=== PATIENT | male | born 1955 | race Caucasian/White ===

== ENCOUNTER → 2019-05-01 14:12 | Outpatient (CLI) | payer OTHER, SELFPAY ==
[2019-04-11 16:11] VITALS: BMI 28.8
--- NOTE | 2019-05-01 14:16 | ECHOD_ITS ---
Reason For Study: ARRHYTHMIA Procedure This was a 2D Doppler, Color Flow transthoracic echocardiogram. Exam performed in department. Left Ventricle Normal LV size. Left ventricular systolic function is normal. Stage 1 diastolic dysfunction. No regional wall motion abnormalities noted. Right Ventricle Normal RV size. Normal systolic function. Atria Normal left atrium. Normal right atrium. Mitral Valve Normal mitral valve. Trivial mitral valve insufficiency. Tricuspid Valve Normal tricuspid valve. Mild tricuspid valve insufficiency. Pulmonary artery systolic pressure is 20 mmHg. Aortic Valve Normal aortic valve. Trisinus/trileaflet aortic valve. Pulmonic Valve Normal pulmonic valve. Great Vessels Normal aortic root. The pulmonary artery is normal size. Normal inferior vena cava. Pericardium/Pleural No pericardial effusion. MMode/2D Measurements & Calculations LVIDd: 4.9 cm IVSd: 0.88 cm Ao root diam: 3.0 cm LVIDs: 3.5 cm LVPWd: 0.91 cm RVDd: 3.2 cm FS: 28.5 % LAV(MOD-bp): 32.4 ml LVAd ap4: 25.6 cm2 SV(MOD-sp4): 38.4 ml LAV(MOD-bp) Indexed: 16.2 ml/m2 EDV(MOD-sp4): 70.3 ml LAV(MOD-sp2): 33.1 ml EDV(sp4-el): 72.3 ml LAV(MOD-sp4): 31.5 ml LVAs ap4: 15.6 cm2 ESV(MOD-sp4): 31.8 ml ESV(sp4-el): 31.3 ml EF(MOD-sp4): 54.7 % EF(sp4-el): 56.8 % SV(sp4-el): 41.1 ml LA A4 area: 13.1 cm2 LA dimension(2D): 3.6 cm RA A4 area: 12.6 cm2 Time Measurements MV dec time: 0.21 sec Doppler Measurements & Calculations MV E max yaniv: 68.4 cm/sec Lat Peak E' Yaniv: 11.1 cm/sec Med Peak E' Yaniv: 6.0 cm/sec MV A max yaniv: 76.7 cm/sec E/E' lat: 6.2 E/E' med: 11.4 MV E/A: 0.89 Ao V2 max: 123.7 cm/sec LV V1 max: 90.0 cm/sec TR max yaniv: 204.9 cm/sec Ao max P.1 mmHg LV V1 max P.2 mmHg TR max P.9 mmHg Interpretation Summary Normal LV size. Left ventricular systolic function is normal. Stage 1 diastolic dysfunction. Trivial mitral valve insufficiency. Mild tricuspid valve insufficiency. Ordering Physician: Albert Saenz Referring Physician: BATOOL ASHLEY Performed By: Kim Toribio, [place], RVT
== END ==
PROVIDERS: Family Provider Family Medicine; PCP Family Medicine; Referring Provider Internal Medicine Cardiovascular Disease; Visit Provider Internal Medicine Cardiovascular Disease
DX: I49.3 Ventricular premature depolarization (principal)
CPT/HCPCS: 93306

== ENCOUNTER 2019-09-30 19:50 | Emergency (ER) | payer OTHER, SELFPAY ==
[2019-08-09 15:21] VITALS: BMI 29.6
[2019-09-30 19:52] VITALS: BP 165/98; PULSE 79; PULSE 85; RESP 17; RESP 18; TEMP 36.7; O2SAT 97; BMI 29.9
--- NOTE | 2019-09-30 20:09 | ED.VIS.GEN ---
History of Present Illness Chief Complaint: Other, Pain/Inj Informant: Patient, Significant Other Narrative: Patient states that approximately 4 days ago he went to see his PCP and was diagnosed with bronchitis and started on azithromycin. He states that last evening he began to have a fullness in the lower part of his throat. He states that he recently saw ENT and had a scope evaluating his throat. He was told that he had some inflammation around the larynx was probably due to his acid reflux is scheduled for a swallowing study. He does not currently smoke. He states that they did not see any tumors or other pathology. He denies any fevers. He states that his throat feels like there is a large amount of mucus in the back that he needs to get up but cannot. He notes his voice is a little bit more raspy. No recent fevers. No shortness of breath. Past Medical History - Allergies and Home Meds Allergies/Adverse Reactions: Allergies doxycycline Allergy (Intermediate, Verified 09/30/19 19:51) GI upset Penicillins Allergy (Verified 09/30/19 19:51) Anaphylaxis Primary Care Physician: Rock Montes MD [Primary Care Provider] - Surgical History: no surgical history Smoking Status: Former smoker Review of Systems General: Denies: Chills, Fever, Sweats Eyes: Denies: Visual changes - bilaterally, Diplopia ENT: Reports: Sore throat. Denies: Rhinorrhea Cardiovascular: Denies: Chest pain, Palpitations Respiratory: Reports: Cough. Denies: Dyspnea, Sputum, Dyspnea on exertion Gastrointestinal: Denies: Abdominal pain, Nausea, Vomiting, Diarrhea, Melena, Hematochezia Genitourinary: Denies: Dysuria, Hematuria, Frequency Musculoskeletal: Denies: Back pain, Extremity Pain Skin: Denies: Rash, Wounds Neurological: Denies: Headache, Weakness, Numbness Psych: Denies: Depression Endocrine: Denies: Polyuria, Polydipsia Hematologic: Denies: Easy bruising, Easy bleeding, Lymphadenopathy Allergy: Denies: Uticaria, Swelling of the mouth Physical Exam Vital Signs/Narrative: Vital Signs Temp Pulse Resp BP Pulse Ox 09/30/19 19:52 98.1 F 85 17 165/98 H 97 General: Well nourished, Well developed, No Acute Distress Head: Normocephalic, Atraumatic Eyes: Perrl, EOMI ENT: Moist mucous membranes, No rhinorrhea Neck: Supple, Nontender, - - There is no stridor. No significant lymphadenopathy. No uvular swelling. No drooling.. Negative for: No lymphadenopathy Cardiovascular: Regular rate, Regular rhythm, No murmurs Respiratory: No distress, CTA bilaterally, Chest nontender Abdomen: Soft, Nontender, Nondistended, Normal bowel sounds Back: Nontender, Normal Inspection Extremities: Nontender, No edema Skin: Normal color, No rash Neurological: Alert, Oriented x3, Cranial nerves II-XII grossly intact, Normal Strength, Normal Sensation Psychological: Normal affect, Normal Mood Diagnostic/Tx/Re-eval - Medical Decision Making X-rays of the soft tissue of the neck demonstrated degenerative changes. Normal epiglottis. There is very adequate air space present. I do not see any evidence of epiglottitis, stridor, or significant allergic reaction. The patient will be discharged home. The patient will be given a dose of Kenalog. Encourage him to humidify the room he is in. Return if worsening or concerns. ED Disposition - Plan for ED Patient: Disposition: Home or Assisted Living Diagnosis: Laryngitis Instructions: Laryngitis Referrals: Rock Montes MD [Primary Care Provider] -
--- NOTE | 2019-09-30 20:10 | RAD_ITS ---
STUDY: X-RAY - SOFT TISSUE NECK REASON FOR EXAM: Male, 63 years old. Throat fullness. TECHNIQUE: 2 view(s) of the neck were obtained. COMPARISON: None. FINDINGS: Normal visualized nasopharynx, oropharynx, hypopharynx. Normal epiglottis. Normal visualized subglottic tracheal air column. Normal prevertebral soft tissue structures. There are degenerative changes of the cervical spine with cervical spondylosis. There are carotid calcifications within the left neck. RAD/Neck for Soft Tissue IMPRESSION: Degenerative changes. Atherosclerosis. Electronically Signed: Tiara Dupree MD at 20:32 EST Tel , Service support ,
[2019-09-30] MEDS: Triamcinolone Acetonide 40 MG/ML Vial IM (20:44)
[2019-09-30 21:13] VITALS: BP 151/78; PULSE 67; RESP 16
== END 2019-09-30 21:14 | disposition home or self-care (01) ==
PROVIDERS: Emergency Provider Emergency Medicine; Family Provider Family Medicine; PCP Family Medicine
DX: J04.0 Acute laryngitis (principal); Z88.0 Allergy status to penicillin; Z87.891 Personal history of nicotine dependence
CPT/HCPCS: 70360; 96372; 99282

== ENCOUNTER → 2020-08-19 10:18 | Outpatient (CLI) | payer OTHER, SELFPAY ==
[2020-03-11 15:50] VITALS: BMI 29.6
== END ==
PROVIDERS: PCP Family Medicine; Referring Provider Nurse Practitioner Family; Visit Provider Nurse Practitioner Family
DX: Z20.828 Contact with and (suspected) exposure to other viral communicable diseases (principal)
CPT/HCPCS: 87635; C9803; U0003

== ENCOUNTER 2020-08-23 12:44 | Inpatient (IN) | payer OTHER, SELFPAY ==
[2020-03-11 15:50] VITALS: BMI 29.6
[2020-08-23] VITALS (10 sets, daily range): BP systolic 111–142; BP diastolic 70–96; PULSE 66–114; RESP 13–23; TEMP 36.3–38.1; O2SAT 88–99; BMI 27.8; BMI 27.1; BMI 27.2
--- NOTE | 2020-08-23 13:06 | RAD_ITS ---
STUDY: X-RAY CHEST REASON FOR EXAM: Male, 64 years old. sob TECHNIQUE: AP COMPARISON: 10/07/2013 FINDINGS: EKG leads project over the chest. Lungs are underexpanded with interstitial and groundglass opacities along the periphery and the lung bases, new since the prior study. There is no demonstrated pleural abnormality. Normal size heart. Normal mediastinum and pennie. Normal visualized pulmonary arteries. Normal visualized aortic arch and descending thoracic aorta. No acute bony process. There is no demonstrated abnormality of the visualized soft tissue structures of the upper abdomen. RAD/Chest 1 View (Portable) IMPRESSION: 1. Hypoinflation with multilobar interstitial and groundglass opacities. Differential considerations include pulmonary edema, pneumonia (including typical and atypical varieties) and development of interstitial fibrotic lung disease. Electronically Signed: Prakash Addison MD (Brooks) at 13:33 EDT , Service support ,
--- NOTE | 2020-08-23 13:06 | EKG12_ITS ---
Test Reason : SOB Blood Pressure : / mmHG Vent. Rate : 081 BPM Atrial Rate : 081 BPM P-R Int : 136 ms QRS Dur : 098 ms QT Int : 396 ms P-R-T Axes : 042 -02 031 degrees QTc Int : 460 ms Normal sinus rhythm Normal ECG Confirmed by JENNIFER HERNADEZ, TOMMY ([id number]), editorial writer ZION PHILLIPS ([id number]) on 08/26/2020 11:18:07 AM Referred By: DENY/HERRERA Confirmed By:TOMMY RODRIGUEZ MD
--- NOTE | 2020-08-23 13:08 | ED.VIS.GEN ---
History of Present Illness Chief Complaint: Shortness of Breath Narrative: This patient is a 64-year-old male who presents with shortness of breath. He had a positive test for COVID-19 several days ago. He has had multiple sick contacts who have tested positive for COVID-19 at home. His symptoms initially developed about 1 week ago with diarrhea. Over the next couple of days he then developed cough and fever. He began to feel short of breath over the last couple of days. He was monitoring his oxygen at home and his oxygen levels were dropping as low as in the 70s. Patient was brought in by EMS and placed on a nonrebreather. When he was taken off of oxygen here he desaturated to 88% on room air. Patient is still having diarrhea. He denies chest pain. Denies vomiting. He denies history of underlying lung disease such as asthma or COPD but he is a former smoker. Past Medical History - Allergies and Home Meds Allergies/Adverse Reactions: Allergies doxycycline Allergy (Intermediate, Verified 08/23/20 12:53) GI upset Penicillins Allergy (Verified 08/23/20 12:53) Anaphylaxis Primary Care Physician: Rock Montes MD [Primary Care Provider] - Past Medical History: - - Hypertension, hyperlipidemia Surgical History: no surgical history Smoking Status: Former smoker Review of Systems All systems negative except as indicated General: Reports: Fever Eyes: Denies: Visual changes - bilaterally ENT: Denies: Bilateral ear pain Cardiovascular: Denies: Chest pain Respiratory: Reports: Dyspnea, Cough Gastrointestinal: Reports: Diarrhea. Denies: Nausea, Vomiting Musculoskeletal: Denies: Myalgias, Arthralgias Skin: Denies: Rash Neurological: Denies: Headache Allergy: Denies: Uticaria Physical Exam Vital Signs/Narrative: Vital Signs Temp Pulse Resp BP Pulse Ox 08/23/20 12:52 100.4 F H 96 17 136/73 H 96 08/23/20 12:48 100.4 F H 96 16 136/73 H 88 Inital Vital Signs reviewed: Yes General: Well nourished Head: Normocephalic Eyes: EOMI ENT: Moist mucous membranes Neck: Supple Cardiovascular: Regular rhythm, Tachycardia Respiratory: Diminished. Negative for: Rales, Rhonchi, Wheezing Abdomen: Soft Skin: Normal color Neurological: Alert Psychological: Normal affect Diagnostic/Tx/Re-eval Impressions Chest X-Ray 08/23/20 13:06 IMPRESSION: 1. Hypoinflation with multilobar interstitial and groundglass opacities. Differential considerations include pulmonary edema, pneumonia (including typical and atypical varieties) and development of interstitial fibrotic lung disease. Electronically Signed: Prakash Addison MD (Brooks) at 13:33 EDT , Service support , 08/23/20 13:06 Chest 1 View (Portable) [RAD] Stat Laboratory Results 08/23/20 08/23/20 08/23/20 13:07 13:07 13:07 WBC 9.7 RBC 4.34 L Hgb 13.5 Hct 40.4 MCV 93.1 MCH 31.1 MCHC 33.4 RDW Std Deviation 45.1 H RDW Coeff of Renzo 13.1 Plt Count 224 MPV 11.5 Immature Gran % (Auto) 0.400 Neut % (Auto) 83.7 H Lymph % (Auto) 8.1 L [place] % (Auto) 5.8 Eos % (Auto) 1.7 Baso % (Auto) 0.3 Absolute Neuts (auto) 8.1 H Absolute Lymphs (auto) 0.79 L Nucleated RBC % 0 Differential Comment SCANNED Sodium 135 L Potassium 3.3 L Chloride 103 Carbon Dioxide 22.0 Anion Gap 10 BUN 15 Creatinine 1.08 Estim Creat Clear Calc 69.10 Est GFR (MDRD) Af Amer 88 Est GFR (MDRD) Non-Af 73 BUN/Creatinine Ratio 13.9 Glucose 104 Lactic Acid 1.3 Calcium 8.6 Total Bilirubin 1.20 H AST 73 H ALT 67 H Alkaline Phosphatase 187 H Total Protein 7.9 Albumin 3.0 L Globulin 4.9 H Albumin/Globulin Ratio 0.6 L - Medical Decision Making Serum laboratory studies unremarkable. Chest x-ray shows diffuse bilateral interstitial and groundglass opacities. Patient was covered with IV Levaquin for possible secondary bacterial pneumonia. Patient was discussed with the hospitalist and admitted. ED Disposition - Plan for ED Patient: Disposition: Acute Care Hospital [facility] Diagnosis: COVID-19, Hypoxia Referrals: Rock Montes MD [Primary Care Provider] -
[2020-08-23 13:18] LABS: Absolute Lymphocyte Count 0.79 X10^3/uL (0.83-4.51); Absolute Neutrophil Count 8.1 X10^3/uL (2.0-7.7); Basophil# 0.03 X10^3/uL; Basophil% 0.3 % (0-1); Eosinophil# 0.17 X10^3/uL; Eosinophils% 1.7 % (0-5); Hematocrit 40.4 % (40-54); Hemoglobin 13.5 g/dL (13.0-16.5); Lymphocyte # 0.79 X10^3/ul (4.0); Lymphocyte % 8.1 % (19-41); Mean Corp Hgb Conc 33.4 g/dL (32-36); Mean Corpuscular Hgb 31.1 pg (27.0-32.0); Mean Corpuscular Volume 93.1 fL (80-94); Mean Platelet Vol. 11.5 fl (6.2-12.0); Monocyte# 0.56 X10^3/uL; Monocyte% 5.8 % (0-10); NRBC Flagged by Analyzer 0 % (0-5); Neutrophil # 8.14 X10^3/uL (2.7-7.7); Neutrophil % 83.7 % (47-70); POSITIVE MORPHOLOGY YES; Platelet Count 224 K/mm3 (150-450); RBC Distribution Width CV 13.1 % (11.6-14.6); RBC Distribution Width SD 45.1 fl (35.1-43.9); Red Blood Count 4.34 M/mm3 (4.6-6.2); White Blood Count 9.7 K/mm3 (4.4-11.0)
[2020-08-23] MEDS: Acetaminophen 500 MG Tablet 1000 MG PO (13:19)
[2020-08-23] MEDS: 0.9% Normal Saline 1,000 ML 999 ML IV (13:19)
[2020-08-23 13:33] LABS: ALB/GLOB Ratio 0.6 RATIO (0.9-2.4); AST(SGOT) 73 U/L (15-37); Alanine Aminotransfer ALT/SGPT 67 U/L (16-61); Alkaline Phosphatase 187 U/L (45-117); Anion Gap 10 (5-15); BUN 15 mg/dL (7-18); BUN/Creat Ratio 13.9 RATIO (10-20); Calcium,Total 8.6 mg/dL (8.5-10.1); Chloride 103 mmol/L (98-107); Creatinine, Serum 1.08 mg/dL (0.70-1.30); EST Glomerular Filtration Rate 73 mL/min (>60); Est Glom Filt Rate - Afr Amer 88 mL/min (>60); Globulin 4.9 g/dL (2.2-4.2); Glucose 104 mg/dL (74-106); Potassium 3.3 mmol/L (3.5-5.1); Protein, Total 7.9 g/dL (6.4-8.2); Sodium Level 135 mmol/L (136-145)
[2020-08-23 13:35] LABS: Differential Indicated SCAN CRITERIA MET
[2020-08-23 13:51] LABS: Differential Comment SCANNED
[2020-08-23 13:53] LABS: Lactic Acid 1.3 mmol/L (0.4-1.9)
--- NOTE | 2020-08-23 14:19 | PCM.HP.STD ---
Problem List (1) COVID-19 Status: Acute (2) Hypoxia Status: Acute (3) Rapid palpitations Status: Chronic (4) Tachyarrhythmia Status: Chronic Comment: short runs per holter 2018 (5) Essential hypertension Status: Chronic (6) Hyperlipidemia Status: Chronic History of Present Illness Date of Admission: 08/23/20 Chief Complaint: shortness of breath. The patient is a 64 year old M presents with shortness of breath. Patient has been sick for a week and 5 members are also sick. Patient was checked on and was positive for COVID-19. Second is oxygen at home and is dropping down so presented to the emergency room. He was 80% on room air and placed on nasal cannula and has improved. Chest x-ray showed a bilateral diffuse infiltrates. He was ordered to levofloxacin in the emergency room. He is unsure of how he contracted COVID-19. [] Past Medical History Past Medical History (Chronic Problems): Chronic Problems (Last Reviewed 03/11/20 @ 16:[address] Albert Saenz MD) Rapid palpitations (Chronic) Tachyarrhythmia (Chronic) short runs per holter 2019 Essential hypertension (Chronic) Hyperlipidemia (Chronic) Medical History: Medical History (Last Reviewed 08/23/20 @ 14:[address] David Crow DO) Rapid palpitations (Chronic) R00.2 Tachyarrhythmia (Chronic) R00.0 short runs per holter 2019 Essential hypertension (Chronic) I10 Hyperlipidemia (Chronic) E78.5 Alcohol dependence in remission F10.21 Anxiety F41.9 BPH w urinary obs/LUTS N40.1, N13.8 Degeneration of lumbar or lumbosacral intervertebral disc M51.37 Depression F32.9 GERD (gastroesophageal reflux disease) K21.9 Idiopathic peripheral neuropathy G60.9 Impotence due to erectile dysfunction N52.9 Insomnia G47.00 Polysubstance dependence, non-opioid, in remission F19.21 Restrictive airway disease J98.4 Snoring R06.83 Spinal stenosis of lumbar region M48.061 Left rotator cuff tear M75.102 Allergies doxycycline Allergy (Intermediate, Verified 08/23/20 12:53) GI upset Penicillins Allergy (Verified 08/23/20 12:53) Anaphylaxis Home Medications: Ambulatory Orders Medication Instructions Recorded traZODone [Desyrel] 100 mg PO QHS 10/07/13 ibuprofen 800 mg tablet 800 mg PO Q6H PRN tab 04/10/19 montelukast 10 mg tablet 10 mg PO QPM 04/10/19 skhvcmqx-gwj-emzru acid 300 1 tab PO DAILY 04/10/19 mcg-lycopene 600 mcg-lutein 300 mcg tablet triamcinolone acetonide 55 mcg 2 spray INTRANASAL DAILY PRN 04/10/19 nasal spray aerosol aspirin 81 mg tablet,delayed 81 mg PO DAILY 08/09/19 release esomeprazole magnesium 40 mg 20 mg PO DAILY 08/09/19 granules delayed release for susp lisinopril 10 mg tablet 10 mg PO DAILY 08/09/19 atorvastatin 40 mg tablet 40 mg PO QHS 03/11/20 sildenafil 50 mg tablet 50 mg PO DAILY PRN 03/11/20 Surgical History: Surgical History (Last Reviewed 08/23/20 @ 14:[address] David Crow DO) History of appendectomy Z90.49 History of cataract extraction Z98.49 Surgical History: no surgical history Smoking Status: Former smoker Tobacco Use: Cigarettes, Chew - *Family History Maternal Family History: Family History (Last Reviewed 08/23/20 @ 14:[address] David Crow DO) Mother Cancer Pacemaker Father Cancer Brother Hypertension Cancer Son Diabetes Hypertension Enlarged heart Sister Heart valve replaced Review of Systems Constitutional: Denies: Anorexia, Fever, Night Sweats Eyes: Denies: Blurred vision, Double vision HEENT: Denies: Head Aches, Sinus Congestion, Sinus Drainage Cardiovascular: Denies: Chest Pain, Palpitations Respiratory: Reports: Cough. Denies: Sputum production Gastrointestinal: Denies: Abdominal Pain, Nausea, Vomiting Genitourinary: Denies: Dysuria Musculoskeletal: Denies: Joint Pain, Joint Tenderness Skin: Denies: Rash, Wounds Neurological: Denies: Numbness, Tingling, Focal weakness Psychiatric: Denies: Anxiety, Depression Hematologic/ Lymphatic: Denies: Easy Bruising, Easy Bleeding, Hx of blood clot Comment: All review of systems were negative except as mentioned above in the history of present illness and the other review of systems. VTE Information - Inpt Only VTE Present on Admission: No VTE Mechan Device Prophylaxis: None VTE Pharm Prophylaxis ordered?: Yes Patient Problems: Active and Suspected Problems (Last Reviewed 03/11/20 @ 16:[address] Albert Saenz MD) COVID-19 (Acute) Hypoxia (Acute) - Physical Exam Vitals/I&O's: Vital Signs Temp Pulse Resp BP Pulse Ox 38.0 C H 77 16 118/78 97 08/23/20 12:52 08/23/20 14:07 08/23/20 14:07 08/23/20 14:07 08/23/20 14:07 Oxygen Flow Rate (L/min) 4 Oxygen Delivery Method Nasal Cannula Weight: 85.7 kg Body Mass Index (BMI) 27.8 General: Alert, No apparent distress HEENT: Atraumatic, Normocephalic Oral: Moist Mucosa, No Gingival or Mucosal Lesions/ Ulcerations Neck: No Nodes, Thyroid Normal Size and Texture Lungs: Normal air movement, - - Bibasilar crackles Cardiovascular: Regular rate, Regular Rhythm, Normal S1, Normal S2, No murmurs Abdomen: Bowel Sounds Present, Soft, Non Tender, Non-Distended, No Hepato-splenomegaly Extremities: No edema, No Calf Tenderness Skin: No rashes, No breakdown Psych/Mental Status: Normal Affect, Appropriate Laboratory Results 08/23/20 13:07: WBC 9.7, RBC 4.34 L, Hgb 13.5, Hct 40.4, MCV 93.1, MCH 31.1, MCHC 33.4, RDW Std Deviation 45.1 H, RDW Coeff of Renzo 13.1, Plt Count 224, MPV 11.5, Immature Gran % (Auto) 0.400, Neut % (Auto) 83.7 H, Lymph % (Auto) 8.1 L, [place] % (Auto) 5.8, Eos % (Auto) 1.7, Baso % (Auto) 0.3, Absolute Neuts (auto) 8.1 H, Absolute Lymphs (auto) 0.79 L, Nucleated RBC % 0, Differential Comment SCANNED 08/23/20 13:07: Sodium 135 L, Potassium 3.3 L, Chloride 103, Carbon Dioxide 22.0, Anion Gap 10, BUN 15, Creatinine 1.08, Estim Creat Clear Calc 69.10, Est GFR (MDRD) Af Amer 88, Est GFR (MDRD) Non-Af 73, BUN/Creatinine Ratio 13.9, Glucose 104, Calcium 8.6, Total Bilirubin 1.20 H, AST 73 H, ALT 67 H, Alkaline Phosphatase 187 H, Total Protein 7.9, Albumin 3.0 L, Globulin 4.9 H, Albumin/Globulin Ratio 0.6 L 08/23/20 13:07: Lactic Acid 1.3 Current Medications Levofloxacin (Levaquin Iv) 750 mg in 150 mls @ 100 mls/hr IV X1 ONE Stop: 08/23/20 15:21 Assessment/Plan All Active Problems (Last Reviewed 03/11/20 @ 16:[address] Albert Saenz MD) COVID-19 (Acute) Hypoxia (Acute) 1. Acute COVID-19 pneumonia: Doubt bacterial pneumonia. Will check lab work. Dexamethasone 6 mg for 10days or if discharged would have comes first. Monitor over the next coming days in the patient is still here on the second, consult infectious disease. For evaluation for remdesivir. 2. Acute hypoxic respiratory failure: Secondary to above. Patient on 4 L nasal cannula. Wean oxygen as tolerated. It is documented patient 97% on room air but that is an accurate as patient is on 4 L currently. Upon discharge, patient still requiring oxygen, check an amatory pulse ox. 3. Hypokalemia: Replace. Check magnesium. 4. HTN: stable. continue lisinopril 5. VTE prophylaxis: SQ LMWH. Inpatient E&M: 73560 Init Hosp L2
[2020-08-23] MEDS: levoFLOXacin IV 750 MG/150 ML BAG 100 MG IV (14:20)
[2020-08-23 17:20] LABS: Magnesium 1.6 mg/dL (1.6-2.6)
[2020-08-23 17:32] LABS: International Normalized Ratio 1.4; Prothrombin Time (Protime)PT. 16.3 SECONDS (11.7-14.9)
[2020-08-23] MEDS: Atorvastatin Calcium 40 MG Tablet PO (22:48)
[2020-08-23] MEDS: Enoxaparin 30 MG/0.3 ML Syringe SC (22:48)
[2020-08-23] MEDS: Acetaminophen 325 MG Tablet 650 MG PO (22:48)
[2020-08-23] MEDS: Montelukast 10 MG Tablet PO (22:48)
[2020-08-24] VITALS (7 sets, daily range): BP systolic 110–128; BP diastolic 65–74; PULSE 72–93; RESP 18–20; TEMP 36.6–39.4; O2SAT 86–96
[2020-08-24] MEDS: Acetaminophen 325 MG Tablet 650 MG PO (05:08)
[2020-08-24] MEDS: Ibuprofen 400 MG Tablet 800 MG PO (05:09)
[2020-08-24 07:31] LABS: Absolute Neutrophil Count 8.3 X10^3/uL (2.0-7.7); Basophil# 0.02 X10^3/uL; Basophil% 0.2 % (0-1); Hematocrit 37.8 % (40-54); Hemoglobin 12.4 g/dL (13.0-16.5); Lymphocyte % 7.3 % (19-41); Mean Corp Hgb Conc 32.8 g/dL (32-36); Mean Corpuscular Hgb 31.1 pg (27.0-32.0); Mean Corpuscular Volume 94.7 fL (80-94); Mean Platelet Vol. 11.9 fl (6.2-12.0); Monocyte# 0.52 X10^3/uL; Monocyte% 5.5 % (0-10); NRBC Flagged by Analyzer 0 % (0-5); Neutrophil # 8.26 X10^3/uL (2.7-7.7); Neutrophil % 86.6 % (47-70); Platelet Count 227 K/mm3 (150-450); RBC Distribution Width CV 13.3 % (11.6-14.6); RBC Distribution Width SD 46.2 fl (35.1-43.9); Red Blood Count 3.99 M/mm3 (4.6-6.2); White Blood Count 9.5 K/mm3 (4.4-11.0)
[2020-08-24 07:51] LABS: ALB/GLOB Ratio 0.6 RATIO (0.9-2.4); AST(SGOT) 56 U/L (15-37); Alanine Aminotransfer ALT/SGPT 55 U/L (16-61); Albumin, Serum 2.6 g/dL (3.2-5.0); Alkaline Phosphatase 154 U/L (45-117); Anion Gap 11 (5-15); BUN 14 mg/dL (7-18); BUN/Creat Ratio 15.6 RATIO (10-20); Calcium,Total 8.4 mg/dL (8.5-10.1); Chloride 105 mmol/L (98-107); EST Glomerular Filtration Rate 91 mL/min (>60); Est Glom Filt Rate - Afr Amer 109 mL/min (>60); Estimated Creatinine Clearance 82.92 ml/min; Globulin 4.7 g/dL (2.2-4.2); Glucose 88 mg/dL (74-106); Potassium 3.7 mmol/L (3.5-5.1); Protein, Total 7.3 g/dL (6.4-8.2); Sodium Level 139 mmol/L (136-145)
[2020-08-24] MEDS: Enoxaparin 30 MG/0.3 ML Syringe SC ×2 (09:30→22:18)
[2020-08-24] MEDS: Lisinopril 10 MG Tablet PO (09:30)
[2020-08-24] MEDS: Aspirin E.C. 81 MG Tablet PO (09:30)
[2020-08-24] MEDS: Pantoprazole Sodium 20 MG Tablet PO (09:30)
[2020-08-24] MEDS: 0.9% Saline Lock 10 ML Syringe IV (09:30)
[2020-08-24] MEDS: dexAMETHasone 4 MG/ML Vial 6 MG IV (09:31)
[2020-08-24 10:07] LABS: Procalcitonin 0.13 ng/mL (0.00-0.09)
--- NOTE | 2020-08-24 11:36 | NS ---
Pt states he cannot read- needs assistance w/ ordering meals.
--- NOTE | 2020-08-24 14:35 | PN_ITS ---
Patient Problems: Active and Suspected Problems (Last Reviewed 08/23/20 @ 14:[address] David Crow, DO) COVID-19 (Acute) Hypoxia (Acute) Reason for Visit: COVID Subjective: Breathing well. Having chills. Vitals/I&O's: Vital Signs Temp Pulse Resp BP Pulse Ox 36.7 C 72 20 H 113/66 94 08/24/20 09:28 08/24/20 09:28 08/24/20 09:28 08/24/20 09:28 08/24/20 09:28 Oxygen Flow Rate (L/min) 2 Oxygen Delivery Method Nasal Cannula Weight: 83.552 kg Body Mass Index (BMI) 27.1 Intake and Output for Last 24 Hours 08/22/20 08/23/20 08/24/20 23:59 23:59 22:59 Intake Total 1390 / 1440 290 / 290 Balance 1390 / 1440 290 / 290 General: Alert, No apparent distress HEENT: Atraumatic, Normocephalic Oral: Moist Mucosa, No Gingival or Mucosal Lesions/ Ulcerations Neck: No Nodes, Thyroid Normal Size and Texture Lungs: Clear to auscultation, Normal air movement, No rhonchi, No wheeze Cardiovascular: Regular rate, Regular Rhythm, Normal S1, Normal S2, No murmurs Abdomen: Bowel Sounds Present, Soft, Non Tender, Non-Distended, No Hepato- splenomegaly Extremities: No edema, No Calf Tenderness Psych/Mental Status: Normal Affect, Appropriate Microbiology Past 72 Hours 08/23/20 Unknown Urine, Clean Catch Legionella Antigen - Final 08/23/20 Unknown Urine, Clean Catch Streptococcus pneumoniae Antigen (M - Final Laboratory Results 08/23/20 13:07: PT 16.3 H, INR 1.4, D-Dimer Quant (PE/DVT) 0.90 H* 08/23/20 13:07: Magnesium 1.6 08/23/20 18:43: Procalcitonin 0.13 H 08/24/20 05:45: WBC 9.5, RBC 3.99 L, Hgb 12.4 L, Hct 37.8 L, MCV 94.7 H, MCH 31.1, MCHC 32.8, RDW Std Deviation 46.2 H, RDW Coeff of Renzo 13.3, Plt Count 227, MPV 11.9, Immature Gran % (Auto) 0.400, Neut % (Auto) 86.6 H, Lymph % (Auto) 7.3 L, [place] % (Auto) 5.5, Eos % (Auto) 0.0, Baso % (Auto) 0.2, Absolute Neuts (auto) 8.3 H, Absolute Lymphs (auto) 0.70 L, Nucleated RBC % 0 08/24/20 05:45: Sodium 139, Potassium 3.7, Chloride 105, Carbon Dioxide 23.0, Anion Gap 11, BUN 14, Creatinine 0.90, Estim Creat Clear Calc 82.92, Est GFR (MDRD) Af Amer 109, Est GFR (MDRD) Non-Af 91, BUN/Creatinine Ratio 15.6, Glucose 88, Calcium 8.4 L, Total Bilirubin 0.90, AST 56 H, ALT 55, Alkaline Phosphatase 154 H, Total Protein 7.3, Albumin 2.6 L, Globulin 4.7 H, Albumin/Globulin Ratio 0.6 L Current Medications Acetaminophen (Acetaminophen 325 Mg Tablet) 650 mg PO Q6H PRN PRN PRN Reason: Pain Score 1-10/Temp > 100.7 F Last Admin: 08/24/20 05:08 Dose: 650 mg Documented by: Aspirin (Aspirin E.C. 81 Mg Tablet) 81 mg PO DAILY [facility] Last Admin: 08/24/20 09:30 Dose: 81 mg Documented by: Atorvastatin Calcium (Atorvastatin Calcium 40 Mg Tablet) 40 mg PO QHS [facility] Last Admin: 08/23/20 22:48 Dose: 40 mg Documented by: Dexamethasone Sodium Phosphate (Dexamethasone 4 Mg/Ml Vial) 6 mg IV DAILY [facility] Enoxaparin Sodium (Enoxaparin 30 Mg/0.3 Ml Syringe) 30 mg SC BID [facility] Last Admin: 08/24/20 09:30 Dose: 30 mg Documented by: Fluticasone Propionate (Fluticasone 0.05% 1 [place] Nasal.Sry) 1 spray NASAL DAILY PRN PRN PRN Reason: congestion Guaifenesin (Guaifenesin 10 Ml Udc (200mg/10ml)) 20 ml PO Q4H PRN PRN PRN Reason: COUGH Sodium Chloride () 250 mls @ 15 mls/hr IV .[id number] PRN PRN Reason: Saline Flush Sodium Chloride () 250 mls @ 15 mls/hr IV .[id number] PRN PRN Reason: Additional IVPB Infusion Ibuprofen (Ibuprofen 400 Mg Tablet) 800 mg PO Q6H PRN PRN PRN Reason: Pain 1-10 or Fever Last Admin: 08/24/20 05:09 Dose: 800 mg Documented by: Lisinopril (Lisinopril 10 Mg Tablet) 10 mg PO DAILY [facility] Last Admin: 08/24/20 09:30 Dose: 10 mg Documented by: Melatonin (Melatonin 3 Mg Tablet) 3 mg PO QHS PRN PRN PRN Reason: INSOMNIA Montelukast Sodium (Montelukast 10 Mg Tablet) 10 mg PO QHS [facility] Last Admin: 08/23/20 22:48 Dose: 10 mg Documented by: Ondansetron HCl (Ondansetron 4 Mg/2 Ml Vial) 4 mg IV Q8H PRN PRN PRN Reason: NAUSEA/VOMITING Pantoprazole Sodium (Pantoprazole Sodium 20 Mg Tablet) 20 mg PO DAILY [facility] Last Admin: 08/24/20 09:30 Dose: 20 mg Documented by: Sodium Chloride (0.9% Saline Lock 10 Ml Syringe) 10 - 40 ml IV UD PRN PRN Reason: SALINE FLUSH Last Admin: 08/24/20 09:30 Dose: 10 ml Documented by: Throat Lozenges (Benzocaine/Menthol 1 Lozenge) 1 lozenge MUCOUS MEM Q2H PRN PRN PRN Reason: SORE THROAT Medical Necessity - Tobacco Use Smoking Status: Former smoker Tobacco Use: Cigarettes, Chew Assessment/Plan All Active Problems (Last Reviewed 08/23/20 @ 14:[address] David Crow, DO) COVID-19 (Acute) Hypoxia (Acute) 1. Acute COVID-19 pneumonia: Appears improved--slightly. Doubt bacterial pneumonia. Will check lab work. Dexamethasone 6 mg for 10days or if discharged which ever comes first. If worse, consider consult to ID. Overall, the patient appears slightly improved. Discussed with the patient about monitoring overnight to ensure that he is continue to do better, and if so, patient could be discharged home to family. If he is still requiring oxygen then would recommend a amatory pulse ox prior to discharge. 2. Acute hypoxic respiratory failure: Secondary to above. Improved, now on 2L. Check CTA chest since D-Dimer 0.9. 3. Hypokalemia: Improved. Replace. Magnesium slightly low, so will replace. 4. HTN: stable. continue lisinopril 5. VTE prophylaxis: SQ LMWH. Inpatient E&M: 00337 Subs Hosp L2
--- NOTE | 2020-08-24 14:52 | CT_ITS ---
STUDY: CTA CHEST REASON FOR EXAM: Male, 64 years old. HYPOXIA, COVID+ RADIATION DOSAGE (If Supplied By Facility): CTDIvol = ( 9.86 ) mGy, DLP = ( 402.21 ) mGycm TECHNIQUE: The examination was performed with the intravenous administration of IV 100mL Isovue-370. Post-processing of the angiographic images was performed, with multiplanar reformation and 3D reconstruction. Individualized dose optimization techniques were used for this CT. COMPARISON: None. FINDINGS: Normal enhancement of the main pulmonary artery and right and left pulmonary arteries. Normal enhancement of the bilateral peripheral pulmonary arteries. There is no demonstrated pulmonary embolism. Normal thoracic aorta and visualized great vessels. There is no demonstrated aortic dissection. Normal heart and pericardium. Normal mediastinum. Normal hilar regions. Normal visualized trachea and bronchi. Peripheral dominant multilobar groundglass opacities extending to the pleural surface. No airspace consolidation or cavitating process. Multifocal intralobular septal thickening and areas of groundglass opacity. Normal pleura. There mild emphysematous changes of the upper lungs. Normal chest wall structures. Degenerative changes of the left shoulder. There are degenerative changes of the lower cervical and thoracic findings. Gallbladder is contracted. There is a small hiatal hernia. CT/CTA Chest W/WO Contrast IMPRESSION: 1. No central or segmental pulmonary embolism. 2. Multilobar peripheral dominant groundglass opacities with mild interlobular septal thickening and areas of groundglass opacity. Commonly reported imaging features of COVID-19 pneumonia. Other processes such as influenza pneumonia organizing pneumonia, that can be seen with drug toxicity and connective tissue disease can cause a similar imaging pattern. Electronically Signed: Prakash Addison MD ([place]) at 15:58 EST , Service support ,
[2020-08-24] MEDS: Montelukast 10 MG Tablet PO (22:18)
[2020-08-24] MEDS: MELATONIN 3 MG TABLET PO (22:18)
[2020-08-24] MEDS: Atorvastatin Calcium 40 MG Tablet PO (22:18)
[2020-08-25] VITALS (21 sets, daily range): BP systolic 93–150; BP diastolic 52–76; PULSE 65–97; RESP 8–26; TEMP 36.3–37.9; O2SAT 88–97
[2020-08-25] MEDS: Acetaminophen 325 MG Tablet 650 MG PO ×2 (03:26→16:34)
[2020-08-25] MEDS: Ibuprofen 400 MG Tablet 800 MG PO ×2 (03:27→16:35)
[2020-08-25] MEDS: Enoxaparin 30 MG/0.3 ML Syringe SC ×2 (08:44→21:25)
[2020-08-25] MEDS: Pantoprazole Sodium 20 MG Tablet PO (08:45)
[2020-08-25] MEDS: Aspirin E.C. 81 MG Tablet PO (08:45)
--- NOTE | 2020-08-25 10:45 | CASEMGMT ---
RN ANGI called patient in room for initial transition planning/care coordination assessment. RN ANGI introduced self and role at [facility]. Patient is alert and oriented. Patient willing to participate in assessment and is able to answer all questions appropriately. Care providers, pharmacy, and demographics verified. Patient wishes to discharge home, denies need for home health at this time. Patient states he has no further needs or concerns at this time. CM to follow for discharge planning needs that may arise. PCP: Simon Specialists: none Preferred Pharmacy: [facility]. Okay with [facility] retail at discharge. Insurance: MMO Prescription Benefit: yes Living Will/HPOA: none LNOK: Girlfriend Living Arrangements: Patient states he lives with girlfriend and her grandson in a 2 story home with bed and bath on the first floor. Patient states he is independent at home. Family has been sick and isolating at home. Transportation: self, girlfriend DME/HHC: Patient denies DME at this time or previous HHC. Patient states he would like [employer] at discharge for any DME. Will monitor for need for home oxygen. Disposition Plan: Patient to discharge home with family support and follow-up plans in place Trina OATES, RN, CM
[2020-08-25] MEDS: dexAMETHasone 4 MG Tablet 6 MG PO (16:24)
[2020-08-25] MEDS: 0.9% Saline Lock 10 ML Syringe IV (17:31)
--- NOTE | 2020-08-25 19:08 | PCM.PROGNOTE ---
Patient Problems: Active and Suspected Problems (Last Reviewed 08/23/20 @ 14:[address] David Crow, DO) COVID-19 (Acute) Hypoxia (Acute) Subjective: He was seen and examined today, he remains on high flow oxygen at this time. I had infectious diseases see the patient today and they ordered remdesivir. Patient does not complain to this examiner extreme shortness of breath or any chest discomfort. - Physical Exam Vitals/I&O's: Vital Signs Temp Pulse Resp BP Pulse Ox 98.8 F 88 17 108/61 92 08/25/20 18:51 08/25/20 18:51 08/25/20 18:51 08/25/20 18:51 08/25/20 18:51 Oxygen Flow Rate (L/min) 15 Oxygen Delivery Method Nasal Cannula Weight: 83.552 kg Body Mass Index (BMI) 27.1 Intake and Output for Last 24 Hours 08/24/20 08/24/20 08/25/20 00:59 23:59 23:59 Intake Total 1420 / 1420 Balance 1420 / 1420 General: Alert, Oriented x3, Cooperative, No apparent distress, Well developed, Well nourished HEENT: Atraumatic, PERRLA, EOMI, Normocephalic Oral: Moist Mucosa Neck: Supple, No JVD, Trachea Midline, Thyroid Normal Size and Texture Lungs: Clear to auscultation, Normal air movement, No rhonchi, No wheeze, No rales Cardiovascular: Regular rate, Regular Rhythm, Normal S1, Normal S2, No murmurs, PMI Normal, No rub noted Abdomen: Bowel Sounds Present, Soft, Non Tender, Non-Distended Extremities: No clubbing, No cyanosis, No edema, Capillary Refill Less than 3 Seconds Skin: No rashes, No breakdown Musculoskeletal: No Tenderness to Palpation of Joints or Extremities Neurological: Cranial nerves II-XII grossly intact, Neuro grossly intact, Sensory exam intact to light touch and pain, Coordination normal Psych/Mental Status: Normal Affect, Appropriate, Alert and oriented to time, place, person, mood and affect Microbiology Past 72 Hours 08/23/20 14:03 Blood Culture (Wb) - Right Hand Blood Culture - Preliminary No growth in 48 hours. 08/23/20 13:07 Blood Culture (Wb) - Anticubital Left Blood Culture - Preliminary No growth in 48 hours. 08/23/20 Unknown Urine, Clean Catch Legionella Antigen - Final 08/23/20 Unknown Urine, Clean Catch Streptococcus pneumoniae Antigen (M - Final Laboratory Results 08/25/20 14:36: Blood Type A POSITIVE Current Medications Acetaminophen (Acetaminophen 325 Mg Tablet) 650 mg PO Q6H PRN PRN PRN Reason: Pain Score 1-10/Temp > 100.7 F Last Admin: 08/25/20 16:34 Dose: 650 mg Documented by: Albuterol Sulfate (Albuterol Sulfate 18 Gm Inhaler (200 Puffs)) 2 puff IH Q4H PRN PRN PRN Reason: SOB or wheezing Last Admin: 08/25/20 00:04 Dose: 2 puff Documented by: Aspirin (Aspirin E.C. 81 Mg Tablet) 81 mg PO DAILY [facility] Last Admin: 08/25/20 08:45 Dose: 81 mg Documented by: Atorvastatin Calcium (Atorvastatin Calcium 40 Mg Tablet) 40 mg PO QHS [facility] Last Admin: 08/24/20 22:18 Dose: 40 mg Documented by: Dexamethasone (Dexamethasone 4 Mg Tablet) 6 mg PO QAM [facility] Stop: 09/03/20 10:01 Last Admin: 08/25/20 16:24 Dose: 6 mg Documented by: Enoxaparin Sodium (Enoxaparin 30 Mg/0.3 Ml Syringe) 30 mg SC BID [facility] Last Admin: 08/25/20 08:44 Dose: 30 mg Documented by: Fluticasone Propionate (Fluticasone 0.05% 1 [place] Nasal.Sry) 1 spray NASAL DAILY PRN PRN PRN Reason: congestion Guaifenesin (Guaifenesin 10 Ml Udc (200mg/10ml)) 20 ml PO Q4H PRN PRN PRN Reason: COUGH Sodium Chloride () 250 mls @ 15 mls/hr IV .[id number] PRN PRN Reason: Saline Flush Sodium Chloride () 250 mls @ 15 mls/hr IV .[id number] PRN PRN Reason: Additional IVPB Infusion Remdesivir 100 mg/ Sodium (Chloride) 250 mls @ 125 mls/hr IV DAILY [facility]; Protocol Stop: 08/29/20 11:59 Ibuprofen (Ibuprofen 400 Mg Tablet) 800 mg PO Q6H PRN PRN PRN Reason: Pain 1-10 or Fever Last Admin: 08/25/20 16:35 Dose: 800 mg Documented by: Lisinopril (Lisinopril 10 Mg Tablet) 10 mg PO DAILY [facility] Last Admin: 08/25/20 10:54 Dose: Not Given Documented by: Melatonin (Melatonin 3 Mg Tablet) 3 mg PO QHS PRN PRN PRN Reason: INSOMNIA Last Admin: 08/24/20 22:18 Dose: 3 mg Documented by: Miscellaneous Information (Inhaler, Assist Devices 1 Each Spacer) 1 each INHALATION PRN PRN PRN Reason: WITH ALBUTEROL MDI Montelukast Sodium (Montelukast 10 Mg Tablet) 10 mg PO QHS [facility] Last Admin: 08/24/20 22:18 Dose: 10 mg Documented by: Ondansetron HCl (Ondansetron 4 Mg/2 Ml Vial) 4 mg IV Q8H PRN PRN PRN Reason: NAUSEA/VOMITING Pantoprazole Sodium (Pantoprazole Sodium 20 Mg Tablet) 20 mg PO DAILY [facility] Last Admin: 08/25/20 08:45 Dose: 20 mg Documented by: Sodium Chloride (0.9% Saline Lock 10 Ml Syringe) 10 - 40 ml IV UD PRN PRN Reason: SALINE FLUSH Last Admin: 08/25/20 17:31 Dose: 10 ml Documented by: Throat Lozenges (Benzocaine/Menthol 1 Lozenge) 1 lozenge MUCOUS MEM Q2H PRN PRN PRN Reason: SORE THROAT Medical Necessity - Tobacco Use Smoking Status: Former smoker Tobacco Use: Cigarettes, Chew Assessment/Plan All Active Problems (Last Reviewed 08/23/20 @ 14:[address] David Crow, DO) COVID-19 (Acute) Hypoxia (Acute) #1 acute COVID-19 multi lobar pneumonia-continue present treatment per infectious diseases #2 acute hypoxic respiratory failure-continue to wean oxygen as tolerated, patient is currently on high flow oxygen #3 essential hypertension #4 hyperlipidemia Inpatient E&M: [id number] [facility] Hosp L2
--- NOTE | 2020-08-25 20:05 | PCM.HP.ID ---
Problem List (1) COVID-19 Status: Acute Reason for Consult: covid Consulted by: Dr. Oglesby History of Present Illness: The patient is a 64 year old M presented with symptoms starting 08/17, progressive headache, aches, change in taste/smell, diarrhea, cough, dyspnea. Multiple family members sick with covid. Came to ED, hypoxic and febrile to 102.9. Admitted on dex. Full ROS performed and neg except as noted above - Medical History Past Medical History (Chronic Problems): Chronic Problems (Last Reviewed 08/23/20 @ 14:[address] David Crow, DO) Rapid palpitations (Chronic) Tachyarrhythmia (Chronic) short runs per holter 2019 Essential hypertension (Chronic) Hyperlipidemia (Chronic) Allergies/Adverse Reactions: Allergies doxycycline Allergy (Intermediate, Verified 08/23/20 12:53) GI upset Penicillins Allergy (Verified 08/23/20 12:53) Anaphylaxis Home Medications: Ambulatory Orders Medication Instructions Recorded traZODone [Desyrel] 100 mg PO QHS 10/07/13 ibuprofen 800 mg tablet 800 mg PO Q6H PRN tab 04/10/19 montelukast 10 mg tablet 10 mg PO QHS 04/10/19 lifjkmup-vwc-vaofu acid 300 1 tab PO DAILY 04/10/19 mcg-lycopene 600 mcg-lutein 300 mcg tablet triamcinolone acetonide 55 mcg 2 spray INTRANASAL DAILY PRN 04/10/19 nasal spray aerosol aspirin 81 mg tablet,delayed 81 mg PO DAILY 08/09/19 release esomeprazole magnesium 40 mg 20 mg PO DAILY 08/09/19 granules delayed release for susp lisinopril 10 mg tablet 10 mg PO DAILY 08/09/19 atorvastatin 40 mg tablet 40 mg PO QHS 03/11/20 Melatonin 5 mg PO QHS 08/23/20 - Social History SMOKING STATUS:: Former smoker Vital Signs Temp Pulse Resp BP Pulse Ox 98.8 F 88 17 108/61 92 08/25/20 18:51 08/25/20 18:51 08/25/20 18:51 08/25/20 18:51 08/25/20 18:51 Oxygen Flow Rate (L/min) 15 Oxygen Delivery Method Nasal Cannula Weight: 83.552 kg Body Mass Index (BMI) 27.1 Microbiology Past 72 Hours 08/23/20 14:03 Blood Culture - Preliminary Blood Culture (Wb) - Right Hand No growth in 48 hours. 08/23/20 13:07 Blood Culture - Preliminary Blood Culture (Wb) - Anticubital Left No growth in 48 hours. 08/23/20 Unknown Legionella Antigen - Final Urine, Clean Catch Streptococcus pneumoniae Antigen (M - Final Laboratory Tests Past 24 Hrs 08/25/20 14:36 Blood Type A POSITIVE - Other Studies Radiology: [] reviewed Other Studies: [] Route of nutrition/ use of supplements: [] Nutritional Intake: [] IV Site: [] Alaniz Catheter: [] - Physical Exam General: Alert, Oriented x3, Cooperative HEENT: Atraumatic, PERRLA, EOMI Neck: Supple, No Nodes Lungs: Diminished Cardiovascular: Regular rate, Regular Rhythm Abdomen: Soft, Non Tender, Non-Distended Extremities: No edema Skin: No rashes IV Site: Peripheral, without redness Musculoskeletal: No Tenderness to Palpation of Joints or Extremities Neurological: Cranial nerves II-XII grossly intact - Assessment/Plan Antibiotics: [] Assessment/Plan: [] Active and Suspected Problems (Last Reviewed 08/23/20 @ 14:[address] David Crow, DO) COVID-19 (Acute) Hypoxia (Acute) On dex. Reviewed EUA and risks/benefits of plasma, he is in agreement, will start. Will start remdesivir. On 15L O2. CT neg for PE. On lovenox 30mg bid. Thank you, will follow
[2020-08-25] MEDS: Atorvastatin Calcium 40 MG Tablet PO (21:24)
[2020-08-25] MEDS: Montelukast 10 MG Tablet PO (21:25)
[2020-08-26] VITALS (17 sets, daily range): BP systolic 110–133; BP diastolic 65–78; PULSE 70–90; RESP 12–29; TEMP -13.3–37; O2SAT 81–97
[2020-08-26 05:40] LABS: Hematocrit 36.1 % (40-54); Hemoglobin 12.3 g/dL (13.0-16.5); Mean Corp Hgb Conc 34.1 g/dL (32-36); Mean Corpuscular Hgb 31.5 pg (27.0-32.0); Mean Corpuscular Volume 92.3 fL (80-94); Mean Platelet Vol. 11.4 fl (6.2-12.0); Platelet Count 290 K/mm3 (150-450); RBC Distribution Width CV 13.5 % (11.6-14.6); RBC Distribution Width SD 45.8 fl (35.1-43.9); Red Blood Count 3.91 M/mm3 (4.6-6.2); White Blood Count 12.2 K/mm3 (4.4-11.0)
[2020-08-26 05:59] LABS: ALB/GLOB Ratio 0.5 RATIO (0.9-2.4); AST(SGOT) 346 U/L (15-37); Alanine Aminotransfer ALT/SGPT 306 U/L (16-61); Albumin, Serum 2.4 g/dL (3.2-5.0); Alkaline Phosphatase 258 U/L (45-117); Anion Gap 7 (5-15); BUN 20 mg/dL (7-18); BUN/Creat Ratio 22.1 RATIO (10-20); Calcium,Total 8.7 mg/dL (8.5-10.1); Chloride 108 mmol/L (98-107); EST Glomerular Filtration Rate 90 mL/min (>60); Est Glom Filt Rate - Afr Amer 108 mL/min (>60); Estimated Creatinine Clearance 82.92 ml/min; Globulin 5.2 g/dL (2.2-4.2); Glucose 149 mg/dL (74-106); Potassium 3.9 mmol/L (3.5-5.1); Protein, Total 7.6 g/dL (6.4-8.2); Sodium Level 139 mmol/L (136-145)
[2020-08-26] MEDS: 0.9% Saline Lock 10 ML Syringe IV (10:26)
[2020-08-26] MEDS: Lisinopril 10 MG Tablet PO (10:27)
[2020-08-26] MEDS: dexAMETHasone 4 MG Tablet 6 MG PO (10:27)
[2020-08-26] MEDS: Pantoprazole Sodium 20 MG Tablet PO (10:27)
[2020-08-26] MEDS: Aspirin E.C. 81 MG Tablet PO (10:27)
[2020-08-26] MEDS: Enoxaparin 30 MG/0.3 ML Syringe SC ×2 (10:28→21:14)
--- NOTE | 2020-08-26 11:06 | PCM.PN.ID ---
Patient Problems: Active and Suspected Problems (Last Reviewed 08/23/20 @ 14:[address] David Crow, DO) COVID-19 (Acute) Hypoxia (Acute) Subjective: Feeling a little better, no fever, still dyspnea and cough. - Physical Exam Vitals/I&O's: Vital Signs Temp Pulse Resp BP Pulse Ox 97.8 F 70 26 H 125/77 H 88 08/26/20 10:15 08/26/20 10:30 08/26/20 10:30 08/26/20 10:15 08/26/20 10:30 Oxygen Flow Rate (L/min) 15 Oxygen Delivery Method Nasal Cannula Weight: 83.552 kg Body Mass Index (BMI) 27.1 Intake and Output for Last 24 Hours 08/24/20 08/25/20 08/26/20 23:59 23:59 23:59 Intake Total 1869 360 / 360 Balance 1869 360 / 360 General: Alert, Cooperative, No apparent distress Lungs: Diminished Cardiovascular: Regular rate, Regular Rhythm Abdomen: Soft, Non Tender, Non-Distended Skin: No rashes Microbiology Past 72 Hours 08/23/20 14:03 Blood Culture (Wb) - Right Hand Blood Culture - Preliminary No growth in 48 hours. 08/23/20 13:07 Blood Culture (Wb) - Anticubital Left Blood Culture - Preliminary No growth in 48 hours. 08/23/20 Unknown Urine, Clean Catch Legionella Antigen - Final 08/23/20 Unknown Urine, Clean Catch Streptococcus pneumoniae Antigen (M - Final Laboratory Results 08/25/20 14:36: Blood Type A POSITIVE 08/26/20 05:32: WBC 12.2 H, RBC 3.91 L, Hgb 12.3 L, Hct 36.1 L, MCV 92.3, MCH 31.5, MCHC 34.1, RDW Std Deviation 45.8 H, RDW Coeff of Renzo 13.5, Plt Count 290, MPV 11.4 08/26/20 05:32: Sodium 139, Potassium 3.9, Chloride 108 H, Carbon Dioxide 24.0, Anion Gap 7, BUN 20 H, Creatinine 0.90, Estim Creat Clear Calc 82.92, Est GFR (MDRD) Af Amer 108, Est GFR (MDRD) Non-Af 90, BUN/Creatinine Ratio 22.1 H, Glucose 149 H, Calcium 8.7, Total Bilirubin 0.60, AST 346 H, ALT 306 H, Alkaline Phosphatase 258 H, Total Protein 7.6, Albumin 2.4 L, Globulin 5.2 H, Albumin/Globulin Ratio 0.5 L Current Medications Acetaminophen (Acetaminophen 325 Mg Tablet) 650 mg PO Q6H PRN PRN PRN Reason: Pain Score 1-10/Temp > 100.7 F Last Admin: 08/25/20 16:34 Dose: 650 mg Documented by: Albuterol Sulfate (Albuterol Sulfate 18 Gm Inhaler (200 Puffs)) 2 puff IH Q4H PRN PRN PRN Reason: SOB or wheezing Last Admin: 08/25/20 00:04 Dose: 2 puff Documented by: Aspirin (Aspirin E.C. 81 Mg Tablet) 81 mg PO DAILY [facility] Last Admin: 08/26/20 10:27 Dose: 81 mg Documented by: Atorvastatin Calcium (Atorvastatin Calcium 40 Mg Tablet) 40 mg PO QHS [facility] Last Admin: 08/25/20 21:24 Dose: 40 mg Documented by: Dexamethasone ([facility] 4 Mg Tablet) [facility] [place]: 09/03/20 10:01 Last Admin: 08/26/20 10:27 Dose: 6 mg Documented by: Enoxaparin Sodium (Enoxaparin 30 Mg/0.3 Ml Syringe) 30 mg SC BID [facility] Last Admin: 08/26/20 10:28 Dose: 30 mg Documented by: Fluticasone Propionate (Fluticasone 0.05% 1 [place] Nasal.Sry) 1 spray NASAL DAILY PRN PRN PRN Reason: congestion Guaifenesin (Guaifenesin 10 Ml Udc (200mg/10ml)) 20 ml PO Q4H PRN PRN PRN Reason: COUGH Sodium Chloride () 250 mls @ 15 mls/hr IV .[id number] PRN PRN Reason: Saline Flush Sodium Chloride () 250 mls @ 15 mls/hr IV .[id number] PRN PRN Reason: Additional IVPB Infusion Ibuprofen (Ibuprofen 400 Mg Tablet) 800 mg PO Q6H PRN PRN PRN Reason: Pain 1-10 or Fever Last Admin: 08/25/20 16:35 Dose: 800 mg Documented by: Lisinopril (Lisinopril 10 Mg Tablet) 10 mg PO DAILY [facility] Last Admin: 08/26/20 10:27 Dose: 10 mg Documented by: Melatonin (Melatonin 3 Mg Tablet) 3 mg PO QHS PRN PRN PRN Reason: INSOMNIA Last Admin: 08/24/20 22:18 Dose: 3 mg Documented by: Miscellaneous Information (Inhaler, Assist Devices 1 Each Spacer) 1 each INHALATION PRN PRN PRN Reason: WITH ALBUTEROL MDI Montelukast Sodium (Montelukast 10 Mg Tablet) 10 mg PO QHS [facility] Last Admin: 08/25/20 21:25 Dose: 10 mg Documented by: Ondansetron HCl (Ondansetron 4 Mg/2 Ml Vial) 4 mg IV Q8H PRN PRN PRN Reason: NAUSEA/VOMITING Pantoprazole Sodium (Pantoprazole Sodium 20 Mg Tablet) 20 mg PO DAILY [facility] Last Admin: 08/26/20 10:27 Dose: 20 mg Documented by: Sodium Chloride (0.9% Saline Lock 10 Ml Syringe) 10 - 40 ml IV UD PRN PRN Reason: SALINE FLUSH Last Admin: 08/26/20 10:26 Dose: 10 ml Documented by: Throat Lozenges (Benzocaine/Menthol 1 Lozenge) 1 lozenge MUCOUS MEM Q2H PRN PRN PRN Reason: SORE THROAT Medical Necessity - Tobacco Use Smoking Status: Former smoker Tobacco Use: Cigarettes, Chew Route of nutrition/ use of supplements: [] Nutritional Intake: [] IV Site: [] Alaniz Catheter: [] - Assessment/Plan Antibiotics: [] Assessment/Plan: [] Active and Suspected Problems (Last Reviewed 08/23/20 @ 14:[address] David Crow, DO) COVID-19 (Acute) Hypoxia (Acute) On dex. Getting plasma this AM. Started remdesivir 08/25, but now rise in ALT to 306, so will stop. On 15L O2. CT neg for PE. On lovenox 30mg bid. Will follow
--- NOTE | 2020-08-26 19:35 | PN_ITS ---
Patient Problems: Active and Suspected Problems (Last Reviewed 08/23/20 @ 14:[address] David Crow, DO) COVID-19 (Acute) Hypoxia (Acute) Subjective: Patient was seen and examined today, he is still on high flow oxygen but he appears comfortable resting in bed. Patient states he does not feel good today, he states he feels fatigued. - Physical Exam Vitals/I&O's: Vital Signs Temp Pulse Resp BP Pulse Ox 98.1 F 82 24 H 112/73 92 08/26/20 18:15 08/26/20 18:15 08/26/20 18:15 08/26/20 18:15 08/26/20 18:15 Oxygen Flow Rate (L/min) 15 Oxygen Delivery Method Bi-pap Weight: 83.552 kg Body Mass Index (BMI) 27.1 Intake and Output for Last 24 Hours 08/24/20 08/25/20 08/26/20 23:59 23:59 23:59 Intake Total 1869 600 / 600 Balance 1869 600 / 600 General: Alert, Oriented x3, Cooperative, No apparent distress, Well developed, - - Patient appears fatigued HEENT: Atraumatic, PERRLA, EOMI, Normocephalic Oral: Moist Mucosa Neck: Supple, No JVD, Trachea Midline, Thyroid Normal Size and Texture Lungs: Clear to auscultation, Normal air movement, No rhonchi, No wheeze, No rales Cardiovascular: Regular rate, Regular Rhythm, Normal S1, Normal S2, No murmurs, PMI Normal, No rub noted, No Gallop Abdomen: Bowel Sounds Present, Soft, Non Tender, Non-Distended, No hernias noted Extremities: No clubbing, No cyanosis, No edema, Capillary Refill Less than 3 Seconds Skin: No rashes, No breakdown Musculoskeletal: No Tenderness to Palpation of Joints or Extremities Neurological: Cranial nerves II-XII grossly intact, Neuro grossly intact, Sensory exam intact to light touch and pain, Coordination normal Psych/Mental Status: Normal Affect, Appropriate, Alert and oriented to time, place, person, mood and affect Microbiology Past 72 Hours 08/23/20 14:03 Blood Culture (Wb) - Right Hand Blood Culture - Preliminary No growth in 48 hours. 08/23/20 13:07 Blood Culture (Wb) - Anticubital Left Blood Culture - Preliminary No growth in 48 hours. 08/23/20 Unknown Urine, Clean Catch Legionella Antigen - Final 08/23/20 Unknown Urine, Clean Catch Streptococcus pneumoniae Antigen (M - Final Laboratory Results 08/26/20 05:32: WBC 12.2 H, RBC 3.91 L, Hgb 12.3 L, Hct 36.1 L, MCV 92.3, MCH 31.5, MCHC 34.1, RDW Std Deviation 45.8 H, RDW Coeff of Renzo 13.5, Plt Count 290, MPV 11.4 08/26/20 05:32: Sodium 139, Potassium 3.9, Chloride 108 H, Carbon Dioxide 24.0, Anion Gap 7, BUN 20 H, Creatinine 0.90, Estim Creat Clear Calc 82.92, Est GFR (MDRD) Af Amer 108, Est GFR (MDRD) Non-Af 90, BUN/Creatinine Ratio 22.1 H, Glucose 149 H, Calcium 8.7, Total Bilirubin 0.60, AST 346 H, ALT 306 H, Alkaline Phosphatase 258 H, Total Protein 7.6, Albumin 2.4 L, Globulin 5.2 H, Albumin/Globulin Ratio 0.5 L Current Medications Acetaminophen (Acetaminophen 325 Mg Tablet) 650 mg PO Q6H PRN PRN PRN Reason: Pain Score 1-10/Temp > 100.7 F Last Admin: 08/25/20 16:34 Dose: 650 mg Documented by: Albuterol Sulfate (Albuterol Sulfate 18 Gm Inhaler (200 Puffs)) 2 puff IH Q4H PRN PRN PRN Reason: SOB or wheezing Last Admin: 08/25/20 00:04 Dose: 2 puff Documented by: Aspirin (Aspirin E.C. 81 Mg Tablet) 81 mg PO DAILY [facility] Last Admin: 08/26/20 10:27 Dose: 81 mg Documented by: Atorvastatin Calcium (Atorvastatin Calcium 40 Mg Tablet) 40 mg PO QHS [facility] Last Admin: 08/25/20 21:24 Dose: 40 mg Documented by: Dexamethasone (Dexamethasone 4 Mg Tablet) 6 mg PO QAM [facility] Stop: 09/03/20 10:01 Last Admin: 08/26/20 10:27 Dose: 6 mg Documented by: Enoxaparin Sodium (Enoxaparin 30 Mg/0.3 Ml Syringe) 30 mg SC BID [facility] Last Admin: 08/26/20 10:28 Dose: 30 mg Documented by: Fluticasone Propionate (Fluticasone 0.05% 1 [place] Nasal.Sry) 1 spray NASAL DAILY PRN PRN PRN Reason: congestion Guaifenesin (Guaifenesin 10 Ml Udc (200mg/10ml)) 20 ml PO Q4H PRN PRN PRN Reason: COUGH Sodium Chloride () 250 mls @ 15 mls/hr IV .[id number] PRN PRN Reason: Saline Flush Sodium Chloride () 250 mls @ 15 mls/hr IV .[id number] PRN PRN Reason: Additional IVPB Infusion Ibuprofen (Ibuprofen 400 Mg Tablet) 800 mg PO Q6H PRN PRN PRN Reason: Pain 1-10 or Fever Last Admin: 08/25/20 16:35 Dose: 800 mg Documented by: Lisinopril (Lisinopril 10 Mg Tablet) 10 mg PO DAILY [facility] Last Admin: 08/26/20 10:27 Dose: 10 mg Documented by: Melatonin (Melatonin 3 Mg Tablet) 3 mg PO QHS PRN PRN PRN Reason: INSOMNIA Last Admin: 08/24/20 22:18 Dose: 3 mg Documented by: Miscellaneous Information (Inhaler, Assist Devices 1 Each Spacer) 1 each INHALATION PRN PRN PRN Reason: WITH ALBUTEROL MDI Montelukast Sodium (Montelukast 10 Mg Tablet) 10 mg PO QHS [facility] Last Admin: 08/25/20 21:25 Dose: 10 mg Documented by: Ondansetron HCl (Ondansetron 4 Mg/2 Ml Vial) 4 mg IV Q8H PRN PRN PRN Reason: NAUSEA/VOMITING Pantoprazole Sodium (Pantoprazole Sodium 20 Mg Tablet) 20 mg PO DAILY [facility] Last Admin: 08/26/20 10:27 Dose: 20 mg Documented by: Sodium Chloride (0.9% Saline Lock 10 Ml Syringe) 10 - 40 ml IV UD PRN PRN Reason: SALINE FLUSH Last Admin: 08/26/20 10:26 Dose: 10 ml Documented by: Throat Lozenges (Benzocaine/Menthol 1 Lozenge) 1 lozenge MUCOUS MEM Q2H PRN PRN PRN Reason: SORE THROAT Medical Necessity - Tobacco Use Smoking Status: Former smoker Tobacco Use: Cigarettes, Chew Assessment/Plan All Active Problems (Last Reviewed 08/23/20 @ 14:[address] David Crow, DO) COVID-19 (Acute) Hypoxia (Acute) #1 acute COVID-19 multi lobar pneumonia-continue present treatment per infectious diseases, no overall changes in his medications at this time #2 acute hypoxic respiratory failure-continue to wean oxygen as tolerated, patient is currently on high flow oxygen #3 essential hypertension #4 hyperlipidemia Inpatient E&M: [id number] Subs Hosp L2
[2020-08-26] MEDS: Atorvastatin Calcium 40 MG Tablet PO (21:14)
[2020-08-26] MEDS: Montelukast 10 MG Tablet PO (21:14)
[2020-08-26] MEDS: MELATONIN 3 MG TABLET PO (23:17)
[2020-08-27] VITALS (18 sets, daily range): BP systolic 110–144; BP diastolic 55–78; PULSE 64–81; RESP 12–27; TEMP 36.1–36.6; O2SAT 76–100
[2020-08-27] MEDS: Ondansetron 4 MG/2 ML Vial IV (00:42)
[2020-08-27] MEDS: 0.9% Saline Lock 10 ML Syringe IV ×2 (00:43→10:08)
--- NOTE | 2020-08-27 01:50 | CPS ---
o2 increased to 70% for low sat-pt sleeping no resp distress noted at this time
[2020-08-27 07:33] LABS: Hematocrit 36.8 % (40-54); Hemoglobin 12.3 g/dL (13.0-16.5); Mean Corp Hgb Conc 33.4 g/dL (32-36); Mean Corpuscular Hgb 31.5 pg (27.0-32.0); Mean Corpuscular Volume 94.4 fL (80-94); Mean Platelet Vol. 11.7 fl (6.2-12.0); Platelet Count 346 K/mm3 (150-450); RBC Distribution Width CV 13.9 % (11.6-14.6); RBC Distribution Width SD 47.9 fl (35.1-43.9); White Blood Count 14.2 K/mm3 (4.4-11.0)
[2020-08-27] MEDS: Lisinopril 10 MG Tablet PO (08:13)
[2020-08-27] MEDS: Aspirin E.C. 81 MG Tablet PO (08:13)
[2020-08-27] MEDS: Pantoprazole Sodium 20 MG Tablet PO (08:13)
[2020-08-27] MEDS: dexAMETHasone 4 MG Tablet 6 MG PO (08:13)
[2020-08-27] MEDS: Enoxaparin 30 MG/0.3 ML Syringe SC ×2 (08:13→20:57)
[2020-08-27] MEDS: 0.9% Normal Saline 1,000 ML 150 ML IV ×3 (10:08→23:45)
[2020-08-27] MEDS: Ibuprofen 400 MG Tablet 800 MG PO (13:14)
--- NOTE | 2020-08-27 17:14 | PCM.PN.ID ---
Patient Problems: Active and Suspected Problems (Last Reviewed 08/23/20 @ 14:[address] David Crow, DO) COVID-19 (Acute) Hypoxia (Acute) Subjective: Feeling better, still desats when off bipap. No fever. - Physical Exam Vitals/I&O's: Vital Signs Temp Pulse Resp BP Pulse Ox 97.2 F L 70 22 H 133/75 H 97 08/27/20 17:00 08/27/20 17:00 08/27/20 17:00 08/27/20 17:00 08/27/20 17:00 Oxygen Flow Rate (L/min) 15 Oxygen Delivery Method Bi-pap Weight: 83.552 kg Body Mass Index (BMI) 27.1 Intake and Output for Last 24 Hours 08/25/20 08/26/20 08/27/20 23:59 23:59 23:59 Intake Total 1869 600 / 600 1200 / 1200 Balance 1869 600 / 600 1200 / 1200 General: Alert, Cooperative, No apparent distress Lungs: Diminished Cardiovascular: Regular rate, Regular Rhythm Abdomen: Soft, Non Tender, Non-Distended Skin: No rashes Microbiology Past 72 Hours 08/23/20 14:03 Blood Culture (Wb) - Right Hand Blood Culture - Preliminary No growth in 48 hours. 08/23/20 13:07 Blood Culture (Wb) - Anticubital Left Blood Culture - Preliminary No growth in 48 hours. Laboratory Results 08/27/20 06:50: WBC 14.2 H, RBC 3.90 L, Hgb 12.3 L, Hct 36.8 L, MCV 94.4 H, MCH 31.5, MCHC 33.4, RDW Std Deviation 47.9 H, RDW Coeff of Renzo 13.9, Plt Count 346, MPV 11.7 Current Medications Acetaminophen (Acetaminophen 325 Mg Tablet) 650 mg PO Q6H PRN PRN PRN Reason: Pain Score 1-10/Temp > 100.7 F Last Admin: 08/25/20 16:34 Dose: 650 mg Documented by: Albuterol Sulfate (Albuterol Sulfate 18 Gm Inhaler (200 Puffs)) 2 puff IH Q4H PRN PRN PRN Reason: SOB or wheezing Last Admin: 08/25/20 00:04 Dose: 2 puff Documented by: Aspirin (Aspirin E.C. 81 Mg Tablet) 81 mg PO DAILY [facility] Last Admin: 08/27/20 08:13 Dose: 81 mg Documented by: Atorvastatin Calcium (Atorvastatin Calcium 40 Mg Tablet) 40 mg PO QHS [facility] Last Admin: 08/26/20 21:14 Dose: 40 mg Documented by: Dexamethasone (Dexamethasone 4 Mg Tablet) 6 mg PO QAM [facility] Stop: 09/03/20 10:01 Last Admin: 08/27/20 08:13 Dose: 6 mg Documented by: Enoxaparin Sodium (Enoxaparin 30 Mg/0.3 Ml Syringe) 30 mg SC BID [facility] Last Admin: 08/27/20 08:13 Dose: 30 mg Documented by: Fluticasone Propionate (Fluticasone 0.05% 1 [place] Nasal.Sry) 1 spray NASAL DAILY PRN PRN PRN Reason: congestion Guaifenesin (Guaifenesin 10 Ml Udc (200mg/10ml)) 20 ml PO Q4H PRN PRN PRN Reason: COUGH Sodium Chloride () 250 mls @ 15 mls/hr IV .[id number] PRN PRN Reason: Saline Flush Sodium Chloride () 250 mls @ 15 mls/hr IV .[id number] PRN PRN Reason: Additional IVPB Infusion Sodium Chloride () 1,000 mls @ 150 mls/hr IV .Q6H40M [facility] Last Admin: 08/27/20 17:03 Dose: 150 mls/hr Documented by: Ibuprofen (Ibuprofen 400 Mg Tablet) 800 mg PO Q6H PRN PRN PRN Reason: Pain 1-10 or Fever Last Admin: 08/27/20 13:14 Dose: 800 mg Documented by: Lisinopril (Lisinopril 10 Mg Tablet) 10 mg PO DAILY [facility] Last Admin: 08/27/20 08:13 Dose: 10 mg Documented by: Melatonin (Melatonin 3 Mg Tablet) 3 mg PO QHS PRN PRN PRN Reason: INSOMNIA Last Admin: 08/26/20 23:17 Dose: 3 mg Documented by: Miscellaneous Information (Inhaler, Assist Devices 1 Each Spacer) 1 each INHALATION PRN PRN PRN Reason: WITH ALBUTEROL MDI Montelukast Sodium (Montelukast 10 Mg Tablet) 10 mg PO QHS [facility] Last Admin: 08/26/20 21:14 Dose: 10 mg Documented by: Ondansetron HCl (Ondansetron 4 Mg/2 Ml Vial) 4 mg IV Q8H PRN PRN PRN Reason: NAUSEA/VOMITING Last Admin: 08/27/20 00:42 Dose: 4 mg Documented by: Pantoprazole Sodium (Pantoprazole Sodium 20 Mg Tablet) 20 mg PO DAILY [facility] Last Admin: 08/27/20 08:13 Dose: 20 mg Documented by: Sodium Chloride (0.9% Saline Lock 10 Ml Syringe) 10 - 40 ml IV UD PRN PRN Reason: SALINE FLUSH Last Admin: 08/27/20 10:08 Dose: 10 ml Documented by: Throat Lozenges (Benzocaine/Menthol 1 Lozenge) 1 lozenge MUCOUS MEM Q2H PRN PRN PRN Reason: SORE THROAT Medical Necessity - Tobacco Use Smoking Status: Former smoker Tobacco Use: Cigarettes, Chew Route of nutrition/ use of supplements: [] Nutritional Intake: [] IV Site: [] Alaniz Catheter: [] - Assessment/Plan Antibiotics: [] Assessment/Plan: [] Active and Suspected Problems (Last Reviewed 08/23/20 @ 14:[address] David Crow, DO) COVID-19 (Acute) Hypoxia (Acute) On dex. Got plasma 08/25. Started remdesivir 08/25, but had rise in ALT to 306, so stopped the following day. On 70% bipap. CT neg for PE. On lovenox 30mg bid. Feeling better. Will follow
--- NOTE | 2020-08-27 18:38 | PCM.PROGNOTE ---
Patient Problems: Active and Suspected Problems (Last Reviewed 08/23/20 @ 14:[address] David Crow, DO) COVID-19 (Acute) Hypoxia (Acute) Subjective: Patient was seen and examined today, he has been placed on BiPAP at times and high flow oxygen at other times. Patient is not receiving remdesivir due to an elevation of his liver enzymes, he does not complain of any chills or fever to this examiner but he states he still feels fatigued. Objective: General: Alert, Oriented x3, Cooperative, No apparent distress, Well developed, - - Patient appears fatigued HEENT: Atraumatic, PERRLA, EOMI, Normocephalic Oral: Moist Mucosa Neck: Supple, No JVD, Trachea Midline, Thyroid Normal Size and Texture Lungs: Clear to auscultation, Normal air movement, No rhonchi, No wheeze, No rales Cardiovascular: Regular rate, Regular Rhythm, Normal S1, Normal S2, No murmurs, PMI Normal, No rub noted, No Gallop Abdomen: Bowel Sounds Present, Soft, Non Tender, Non-Distended, No hernias noted Extremities: No clubbing, No cyanosis, No edema, Capillary Refill Less than 3 Seconds Skin: No rashes, No breakdown Musculoskeletal: No Tenderness to Palpation of Joints or Extremities Neurological: Cranial nerves II-XII grossly intact, Neuro grossly intact, Sensory exam intact to light touch and pain, Coordination normal Psych/Mental Status: Normal Affect, Appropriate, Alert and oriented to time, place, person, mood and affect - Physical Exam Vitals/I&O's: Vital Signs Temp Pulse Resp BP Pulse Ox 97.2 F L 70 22 H 133/75 H 97 08/27/20 17:00 08/27/20 17:00 08/27/20 17:00 08/27/20 17:00 08/27/20 17:00 Oxygen Flow Rate (L/min) 15 Oxygen Delivery Method Bi-pap Weight: 83.552 kg Body Mass Index (BMI) 27.1 Intake and Output for Last 24 Hours 08/25/20 08/26/20 08/27/20 23:59 23:59 23:59 Intake Total 1869 600 / 600 1200 / 1200 Balance 1869 600 / 600 1200 / 1200 Microbiology Past 72 Hours 08/23/20 14:03 Blood Culture (Wb) - Right Hand Blood Culture - Preliminary No growth in 48 hours. 08/23/20 13:07 Blood Culture (Wb) - Anticubital Left Blood Culture - Preliminary No growth in 48 hours. Laboratory Results 08/27/20 06:50: WBC 14.2 H, RBC 3.90 L, Hgb 12.3 L, Hct 36.8 L, MCV 94.4 H, MCH 31.5, MCHC 33.4, RDW Std Deviation 47.9 H, RDW Coeff of Renzo 13.9, Plt Count 346, MPV 11.7 Current Medications Acetaminophen (Acetaminophen 325 Mg Tablet) 650 mg PO Q6H PRN PRN PRN Reason: Pain Score 1-10/Temp > 100.7 F Last Admin: 08/25/20 16:34 Dose: 650 mg Documented by: Albuterol Sulfate (Albuterol Sulfate 18 Gm Inhaler (200 Puffs)) 2 puff IH Q4H PRN PRN PRN Reason: SOB or wheezing Last Admin: 08/25/20 00:04 Dose: 2 puff Documented by: Aspirin (Aspirin E.C. 81 Mg Tablet) 81 mg PO DAILY [facility] 234 BEDS AT [facility] Last Admin: 08/27/20 08:13 Dose: 81 mg Documented by: Atorvastatin Calcium (Atorvastatin Calcium 40 Mg Tablet) 40 mg PO QHS [facility] 234 BEDS AT [facility] Last Admin: 08/26/20 21:14 Dose: 40 mg Documented by: Dexamethasone (Dexamethasone 4 Mg Tablet) 6 mg PO QAM [facility]S [facility]CLUDE 234 BEDS AT [facility] Stop: 09/03/20 10:01 Last Admin: 08/27/20 08:13 Dose: 6 mg Documented by: Enoxaparin Sodium (Enoxaparin 30 Mg/0.3 Ml Syringe) 30 mg SC BID [facility]CLUDE 234 BEDS AT [facility] Last Admin: 08/27/20 08:13 Dose: 30 mg Documented by: Fluticasone Propionate (Fluticasone 0.05% 1 [place] Nasal.Sry) 1 spray NASAL DAILY PRN PRN PRN Reason: congestion Guaifenesin (Guaifenesin 10 Ml Udc (200mg/10ml)) 20 ml PO Q4H PRN PRN PRN Reason: COUGH Sodium Chloride () 250 mls @ 15 mls/hr IV .[id number] PRN PRN Reason: Saline Flush Sodium Chloride () 250 mls @ 15 mls/hr IV .[id number] PRN PRN Reason: Additional IVPB Infusion Sodium Chloride () 1,000 mls @ 150 mls/hr IV .Q6H40M [facility]S INCLUDE 234 BEDS AT [facility] Last Admin: 08/27/20 17:03 Dose: 150 mls/hr Documented by: Ibuprofen (Ibuprofen 400 Mg Tablet) 800 mg PO Q6H PRN PRN PRN Reason: Pain 1-10 or Fever Last Admin: 08/27/20 13:14 Dose: 800 mg Documented by: Lisinopril (Lisinopril 10 Mg Tablet) 10 mg PO DAILY [facility] 234 BEDS AT [facility] Last Admin: 08/27/20 08:13 Dose: 10 mg Documented by: Melatonin (Melatonin 3 Mg Tablet) 3 mg PO QHS PRN PRN PRN Reason: INSOMNIA Last Admin: 08/26/20 23:17 Dose: 3 mg Documented by: Miscellaneous Information (Inhaler, Assist Devices 1 Each Spacer) 1 each INHALATION PRN PRN PRN Reason: WITH ALBUTEROL MDI Montelukast Sodium (Montelukast 10 Mg Tablet) 10 mg PO QHS [facility]CLUDE 234 BEDS AT [facility] Last Admin: 08/26/20 21:14 Dose: 10 mg Documented by: Ondansetron HCl (Ondansetron 4 Mg/2 Ml Vial) 4 mg IV Q8H PRN PRN PRN Reason: NAUSEA/VOMITING Last Admin: 08/27/20 00:42 Dose: 4 mg Documented by: Pantoprazole Sodium (Pantoprazole Sodium 20 Mg Tablet) 20 mg PO DAILY [facility]CLUDE 234 BEDS AT [facility] Last Admin: 08/27/20 08:13 Dose: 20 mg Documented by: Sodium Chloride (0.9% Saline Lock 10 Ml Syringe) 10 - 40 ml IV UD PRN PRN Reason: SALINE FLUSH Last Admin: 08/27/20 10:08 Dose: 10 ml Documented by: Throat Lozenges (Benzocaine/Menthol 1 Lozenge) 1 lozenge MUCOUS MEM Q2H PRN PRN PRN Reason: SORE THROAT Medical Necessity - Tobacco Use Smoking Status: Former smoker Tobacco Use: Cigarettes, Chew Assessment/Plan All Active Problems (Last Reviewed 08/23/20 @ 14:[address] David Crow, DO) COVID-19 (Acute) Hypoxia (Acute) #1 acute COVID-19 multi lobar pneumonia-continue present treatment per infectious diseases, patient is no longer on remdesivir, he remains on dexamethasone. #2 acute hypoxic respiratory failure-continue to wean oxygen as tolerated, patient is currently on high flow oxygen #3 essential hypertension #4 hyperlipidemia Inpatient E&M: 64751 Subs Hosp L2
[2020-08-27] MEDS: Montelukast 10 MG Tablet PO (20:57)
[2020-08-27] MEDS: Atorvastatin Calcium 40 MG Tablet PO (21:06)
[2020-08-27] MEDS: MELATONIN 3 MG TABLET PO (21:08)
[2020-08-28] VITALS (15 sets, daily range): BP systolic 111–157; BP diastolic 60–90; PULSE 70–90; RESP 12–35; TEMP 35.8–37.1; O2SAT 92–98
[2020-08-28] MEDS: 0.9% Normal Saline 1,000 ML 150 ML IV (05:36)
[2020-08-28] MEDS: guaiFENesin 10 ML UDC (200MG/10ML) 20 ML PO (05:38)
[2020-08-28] MEDS: Ibuprofen 400 MG Tablet 800 MG PO ×3 (05:38→21:06)
[2020-08-28 06:33] LABS: Hematocrit 37.4 % (40-54); Hemoglobin 11.9 g/dL (13.0-16.5); Mean Corp Hgb Conc 31.8 g/dL (32-36); Mean Corpuscular Hgb 31.1 pg (27.0-32.0); Mean Corpuscular Volume 97.7 fL (80-94); Mean Platelet Vol. 11.6 fl (6.2-12.0); Platelet Count 356 K/mm3 (150-450); RBC Distribution Width CV 14.2 % (11.6-14.6); RBC Distribution Width SD 50.9 fl (35.1-43.9); Red Blood Count 3.83 M/mm3 (4.6-6.2); White Blood Count 14.2 K/mm3 (4.4-11.0)
--- NOTE | 2020-08-28 09:07 | PCM.PROGNOTE ---
Patient Problems: Active and Suspected Problems (Last Reviewed 08/23/20 @ 14:[address] David Crow, DO) COVID-19 (Acute) Hypoxia (Acute) Subjective: Patient was seen and examined today, he remains on BiPAP now, he has no complaints of increased shortness of breath, chills, or fever. Objective: General: Alert, Oriented x3, Cooperative, No apparent distress, Well developed HEENT: Atraumatic, PERRLA, EOMI, Normocephalic Oral: Moist Mucosa Neck: Supple, No JVD, Trachea Midline, Thyroid Normal Size and Texture Lungs: Clear to auscultation, Normal air movement, No rhonchi, No wheeze, No rales Cardiovascular: Regular rate, Regular Rhythm, Normal S1, Normal S2, No murmurs, PMI Normal, No rub noted, No Gallop Abdomen: Bowel Sounds Present, Soft, Non Tender, Non-Distended, No hernias noted Extremities: No clubbing, No cyanosis, No edema, Capillary Refill Less than 3 Seconds Skin: No rashes, No breakdown Musculoskeletal: No Tenderness to Palpation of Joints or Extremities Neurological: Cranial nerves II-XII grossly intact, Neuro grossly intact, Sensory exam intact to light touch and pain, Coordination normal Psych/Mental Status: Normal Affect, Appropriate, Alert and oriented to time, place, person, mood and affect - Physical Exam Vitals/I&O's: Vital Signs Temp Pulse Resp BP Pulse Ox 98.6 F 77 21 H 139/71 H 93 08/28/20 07:07 08/28/20 08:04 08/28/20 08:04 08/28/20 07:07 08/28/20 08:04 Oxygen Flow Rate (L/min) 70 Oxygen Delivery Method Bi-pap Weight: 83.552 kg Body Mass Index (BMI) 27.1 Intake and Output for Last 24 Hours 08/26/20 08/27/20 08/28/20 23:59 23:59 23:59 Intake Total 600 / 600 3100 / 3100 725 / 725 Balance 600 / 600 3100 / 3100 725 / 725 Microbiology Past 72 Hours 08/23/20 14:03 Blood Culture (Wb) - Right Hand Blood Culture - Preliminary No growth in 48 hours. 08/23/20 13:07 Blood Culture (Wb) - Anticubital Left Blood Culture - Preliminary No growth in 48 hours. Laboratory Results 08/28/20 05:15: WBC 14.2 H, RBC 3.83 L, Hgb 11.9 L, Hct 37.4 L, MCV 97.7 H, MCH 31.1, MCHC 31.8 L, RDW Std Deviation 50.9 H, RDW Coeff of Renzo 14.2, Plt Count 356, MPV 11.6 Current Medications Acetaminophen (Acetaminophen 325 Mg Tablet) 650 mg PO Q6H PRN PRN PRN Reason: Pain Score 1-10/Temp > 100.7 F Last Admin: 08/25/20 16:34 Dose: 650 mg Documented by: Albuterol Sulfate (Albuterol Sulfate 18 Gm Inhaler (200 Puffs)) 2 puff IH Q4H PRN PRN PRN Reason: SOB or wheezing Last Admin: 08/28/20 02:00 Dose: 2 puff Documented by: Aspirin (Aspirin E.C. 81 Mg Tablet) 81 mg PO DAILY [facility] Last Admin: 08/27/20 08:13 Dose: 81 mg Documented by: Atorvastatin Calcium (Atorvastatin Calcium 40 Mg Tablet) 40 mg PO QHS [facility] Last Admin: 08/27/20 21:06 Dose: 40 mg Documented by: Dexamethasone (Dexamethasone 4 Mg Tablet) 6 [place] Stop: 09/03/20 10:01 Last Admin: 08/27/20 08:13 Dose: 6 mg Documented by: Enoxaparin Sodium (Enoxaparin 30 Mg/0.3 Ml Syringe) 30 mg SC BID [facility] Last Admin: 08/27/20 20:57 Dose: 30 mg Documented by: Fluticasone Propionate (Fluticasone 0.05% 1 [place] Nasal.Sry) 1 spray NASAL DAILY PRN PRN PRN Reason: congestion Guaifenesin (Guaifenesin 10 Ml Udc (200mg/10ml)) 20 ml PO Q4H PRN PRN PRN Reason: COUGH Last Admin: 08/28/20 05:38 Dose: 20 ml Documented by: Sodium Chloride () 250 mls @ 15 mls/hr IV .[id number] PRN PRN Reason: Saline Flush Sodium Chloride () 250 mls @ 15 mls/hr IV .[id number] PRN PRN Reason: Additional IVPB Infusion Sodium Chloride () 1,000 mls @ 150 mls/hr IV .Q6H40M [facility] Last Admin: 08/28/20 05:36 Dose: 150 mls/hr Documented by: Ibuprofen (Ibuprofen 400 Mg Tablet) 800 mg PO Q6H PRN PRN PRN Reason: Pain 1-10 or Fever Last Admin: 08/28/20 05:38 Dose: 800 mg Documented by: Lisinopril (Lisinopril 10 Mg Tablet) 10 mg PO DAILY [facility] Last Admin: 08/27/20 08:13 Dose: 10 mg Documented by: Melatonin (Melatonin 3 Mg Tablet) 3 mg PO QHS PRN PRN PRN Reason: INSOMNIA Last Admin: 08/27/20 21:08 Dose: 3 mg Documented by: Miscellaneous Information (Inhaler, Assist Devices 1 Each Spacer) 1 each INHALATION PRN PRN PRN Reason: WITH ALBUTEROL MDI Montelukast Sodium (Montelukast 10 Mg Tablet) 10 mg PO QHS [facility] Last Admin: 08/27/20 20:57 Dose: 10 mg Documented by: Ondansetron HCl (Ondansetron 4 Mg/2 Ml Vial) 4 mg IV Q8H PRN PRN PRN Reason: NAUSEA/VOMITING Last Admin: 08/27/20 00:42 Dose: 4 mg Documented by: Pantoprazole Sodium (Pantoprazole Sodium 20 Mg Tablet) 20 mg PO DAILY [facility] Last Admin: 08/27/20 08:13 Dose: 20 mg Documented by: Sodium Chloride (0.9% Saline Lock 10 Ml Syringe) 10 - 40 ml IV UD PRN PRN Reason: SALINE FLUSH Last Admin: 08/27/20 10:08 Dose: 10 ml Documented by: Throat Lozenges (Benzocaine/Menthol 1 Lozenge) 1 lozenge MUCOUS MEM Q2H PRN PRN PRN Reason: SORE THROAT Medical Necessity - Tobacco Use Smoking Status: Former smoker Tobacco Use: Cigarettes, Chew Assessment/Plan All Active Problems (Last Reviewed 08/23/20 @ 14:[address] David Crow, DO) COVID-19 (Acute) Hypoxia (Acute) #1 acute COVID-19 multi lobar pneumonia-continue present treatment per infectious diseases, patient is no longer on remdesivir, he remains on dexamethasone. #2 acute hypoxic respiratory failure-continue to wean oxygen as tolerated, patient is currently on high flow oxygen, patient will not be able to be discharged until his oxygen requirement is decreased #3 essential hypertension #4 hyperlipidemia Inpatient E&M: [id number] Subs Hosp L2
[2020-08-28 10:16] LABS: ALB/GLOB Ratio 0.5 RATIO (0.9-2.4); AST(SGOT) 100 U/L (15-37); Alanine Aminotransfer ALT/SGPT 169 U/L (16-61); Albumin, Serum 2.2 g/dL (3.2-5.0); Alkaline Phosphatase 213 U/L (45-117); Anion Gap 7 (5-15); BUN 26 mg/dL (7-18); BUN/Creat Ratio 30.7 RATIO (10-20); Chloride 111 mmol/L (98-107); Creatinine, Serum 0.85 mg/dL (0.70-1.30); EST Glomerular Filtration Rate 97 mL/min (>60); Est Glom Filt Rate - Afr Amer 117 mL/min (>60); Globulin 4.7 g/dL (2.2-4.2); Glucose 85 mg/dL (74-106); Potassium 4.1 mmol/L (3.5-5.1); Protein, Total 6.9 g/dL (6.4-8.2); Sodium Level 144 mmol/L (136-145)
--- NOTE | 2020-08-28 10:43 | CON.PCM_ITS ---
Reason for Consult Date of Consultation: 08/28/20 Reason for Consultation: Acute hypoxemic respiratory failure secondary to COVID- 19 pneumonia History of Present Illness: The patient is a 64-year-old male, with a history as outlined below, who initially presented to the emergency department on August 23 with progressive dyspnea, headaches, nonproductive cough and diarrhea. The patient's symptoms had been present since August 17. The patient subsequently tested positive for coronavirus on August 19. On presentation to the emergency department, the patient was noted to have a low-grade fever but was hemodynamically stable and maintaining appropriate oxygen saturations on 4 L/min. Laboratory evaluation revealed a normal white blood cell count. D-dimer was mildly elevated to 0.90. Chemistry profile was notable for a sodium of 135 and potassium of 3.3. Total bili was increased to 1.2. AST, ALT and alkaline phosphatase were all increased to 73, 67 and 187, respectively. Procalcitonin was not significantly elevated. A CTA chest was obtained which failed to demonstrate evidence for pulmonary embolism. However, multifocal groundglass opacities were noted bilaterally. The patient was started on dexamethasone and subsequently admitted to the progressive care unit for further management. The patient was seen in consultation by infectious diseases and received convalescent plasma. He was also started on treatment course of remdesivir. However, due to a rise in transaminase levels, the remdesivir was discontinued the following day. The patient's oxygenation status has slowly declined over the course of the hospitalization and he is now requiring BiPAP support with an FiO2 requirement of 75%. Prior echocardiogram from April 2019 did reveal evidence of diastolic dysfunction. The patient is currently receiving continuous supplemental IV fluids. The patient does appear to be overall net positive from a volume perspective for the hospital admission. Past Medical History Past Medical History (Chronic Problems): Chronic Problems (Last Reviewed 08/23/20 @ 14:[address] David Crow DO) Rapid palpitations (Chronic) Tachyarrhythmia (Chronic) short runs per holter 2019 Essential hypertension (Chronic) Hyperlipidemia (Chronic) Medical History: Medical History (Last Reviewed 08/23/20 @ 14:[address] David Crow DO) Rapid palpitations (Chronic) R00.2 Tachyarrhythmia (Chronic) R00.0 short runs per holter 2019 Essential hypertension (Chronic) I10 Hyperlipidemia (Chronic) E78.5 Alcohol dependence in remission F10.21 Anxiety F41.9 BPH w urinary obs/LUTS N40.1, N13.8 Degeneration of lumbar or lumbosacral intervertebral disc M51.37 Depression F32.9 GERD (gastroesophageal reflux disease) K21.9 Idiopathic peripheral neuropathy G60.9 Impotence due to erectile dysfunction N52.9 Insomnia G47.00 Polysubstance dependence, non-opioid, in remission F19.21 Restrictive airway disease J98.4 Snoring R06.83 Spinal stenosis of lumbar region M48.061 Left rotator cuff tear M75.102 Allergies doxycycline Allergy (Intermediate, Verified 08/23/20 12:53) GI upset Penicillins Allergy (Verified 08/23/20 12:53) Anaphylaxis Home Medications: Ambulatory Orders Medication Instructions Recorded traZODone [Desyrel] 100 mg PO QHS 10/07/13 ibuprofen 800 mg tablet 800 mg PO Q6H PRN tab 04/10/19 montelukast 10 mg tablet 10 mg PO QHS 04/10/19 qcmvware-zmy-uxoyz acid 300 1 tab PO DAILY 04/10/19 mcg-lycopene 600 mcg-lutein 300 mcg tablet triamcinolone acetonide 55 mcg 2 spray INTRANASAL DAILY PRN 04/10/19 nasal spray aerosol aspirin 81 mg tablet,delayed 81 mg PO DAILY 08/09/19 release esomeprazole magnesium 40 mg 20 mg PO DAILY 08/09/19 granules delayed release for susp lisinopril 10 mg tablet 10 mg PO DAILY 08/09/19 atorvastatin 40 mg tablet 40 mg PO QHS 03/11/20 Melatonin 5 mg PO QHS 08/23/20 Surgical History: Surgical History (Last Reviewed 08/23/20 @ 14:[address] David Crow DO) History of appendectomy Z90.49 History of cataract extraction Z98.49 Surgical History: no surgical history Smoking Status: Former smoker Tobacco Use: Cigarettes, Chew - *Family History Maternal Family History: Family History (Last Reviewed 08/23/20 @ 14:[address] David Crow DO) Mother Cancer Pacemaker Father Cancer Brother Hypertension Cancer Son Diabetes Hypertension Enlarged heart Sister Heart valve replaced Review of Systems Constitutional: Reports: Fatigue. Denies: Chills, Fever Eyes: Denies: Blurred vision, Double vision HEENT: Reports: Head Aches Cardiovascular: Denies: Chest Pain, Palpitations Respiratory: Reports: Cough, Shortness of Breath Gastrointestinal: Denies: Abdominal Pain, Nausea, Vomiting Genitourinary: Denies: Dysuria Musculoskeletal: Denies: Joint Pain, Joint Tenderness Skin: Denies: Rash, Wounds Neurological: Denies: Numbness, Tingling, Focal weakness Psychiatric: Denies: Anxiety, Depression, Homicidal Ideations, Suicidal Ideations Hematologic/ Lymphatic: Denies: Easy Bruising, Easy Bleeding Patient Problems: Active and Suspected Problems (Last Reviewed 08/23/20 @ 14:[address] David Crow, DO) COVID-19 (Acute) Hypoxia (Acute) Objective: The patient's most recent lab work, culture data and imaging studies have all b een personally reviewed. Surface echocardiogram from April 2019 revealed evidence of stage I diastolic dysfunction. Coronavirus PCR was positive on August 19. Strep and urine Legionella antigens were negative. Blood cultures have shown no growth to date. - Physical Exam Vitals/I&O's: Vital Signs Temp Pulse Resp BP Pulse Ox 97.8 F 84 18 122/70 H 96 08/28/20 09:07 08/28/20 09:07 08/28/20 09:07 08/28/20 09:07 08/28/20 09:07 Oxygen Flow Rate (L/min) 70 Oxygen Delivery Method Bi-pap Weight: 184 lb 3.21 oz Body Mass Index (BMI) 27.1 Intake and Output for Last 24 Hours 08/26/20 08/27/20 08/28/20 23:59 23:59 23:59 Intake Total 600 / 600 3100 / 3100 725 / 725 Balance 600 / 600 3100 / 3100 725 / 725 General: Alert, Cooperative, No apparent distress, - - Currently tolerating BiPAP therapy. HEENT: Atraumatic, Normocephalic Oral: Moist Mucosa, No Gingival or Mucosal Lesions/ Ulcerations Neck: Supple, No Nodes, Trachea Midline Lungs: No rhonchi, No wheeze, No rales, Diminished Cardiovascular: Regular rate, Regular Rhythm Abdomen: Bowel Sounds Present, Soft, Non Tender Extremities: No clubbing, No cyanosis, No edema Skin: No breakdown Musculoskeletal: No Tenderness to Palpation of Joints or Extremities, No Muscle Wasting Lymphatic: No Cervical, Supraclavicular, or Inguinal Adenopathy Neurological: Cranial nerves II-XII grossly intact, Neuro grossly intact Psych/Mental Status: Normal Affect, Appropriate Labs (Last 48 Hours) 08/27/20 08/28/20 08/28/20 06:50 05:15 05:15 WBC 14.2 H 14.2 H RBC 3.90 L 3.83 L Hgb 12.3 L 11.9 L Hct 36.8 L 37.4 L MCV 94.4 H 97.7 H MCH 31.5 31.1 MCHC 33.4 31.8 L RDW Std Deviation 47.9 H 50.9 H RDW Coeff of Renzo 13.9 14.2 Plt Count 346 356 MPV 11.7 11.6 Sodium Potassium Chloride Carbon Dioxide Anion Gap BUN Creatinine Estim Creat Clear Calc Est GFR (MDRD) Af Amer Est GFR (MDRD) Non-Af BUN/Creatinine Ratio Glucose Calcium Total Bilirubin AST ALT Alkaline Phosphatase B-Natriuretic Peptide Pending Total Protein Albumin Globulin Albumin/Globulin Ratio 08/28/20 05:15 WBC RBC Hgb Hct MCV MCH MCHC RDW Std Deviation RDW Coeff of Renzo Plt Count MPV Sodium 144 Potassium 4.1 Chloride 111 H Carbon Dioxide 26.0 Anion Gap 7 BUN 26 H Creatinine 0.85 Estim Creat Clear Calc 87.80 Est GFR (MDRD) Af Amer 117 Est GFR (MDRD) Non-Af 97 BUN/Creatinine Ratio 30.7 H Glucose 85 Calcium 8.0 L Total Bilirubin 0.70 AST 100 H ALT 169 H Alkaline Phosphatase 213 H B-Natriuretic Peptide Total Protein 6.9 Albumin 2.2 L Globulin 4.7 H Albumin/Globulin Ratio 0.5 L Clinical Impression(s) from Imaging Studies Chest X-Ray 08/23/20 13:06 IMPRESSION: 1. Hypoinflation with multilobar interstitial and groundglass opacities. Differential considerations include pulmonary edema, pneumonia (including typical and atypical varieties) and development of interstitial fibrotic lung disease. Electronically Signed: Prakash Addison MD ([place]) at 13:33 EDT , Service support , Chest CTA 08/24/20 14:52 IMPRESSION: 1. No central or segmental pulmonary embolism. 2. Multilobar peripheral dominant groundglass opacities with mild interlobular septal thickening and areas of groundglass opacity. Commonly reported imaging features of COVID-19 pneumonia. Other processes such as influenza pneumonia organizing pneumonia, that can be seen with drug toxicity and connective tissue disease can cause a similar imaging pattern. Electronically Signed: Prakash Addison MD ([place]) at 15:58 EST , Service support , Current Medications Acetaminophen (Acetaminophen 325 Mg Tablet) 650 mg PO Q6H PRN PRN PRN Reason: Pain Score 1-10/Temp > 100.7 F Last Admin: 08/25/20 16:34 Dose: 650 mg Documented by: Albuterol Sulfate (Albuterol Sulfate 18 Gm Inhaler (200 Puffs)) 2 puff IH Q4H PRN PRN PRN Reason: SOB or wheezing Last Admin: 08/28/20 02:00 Dose: 2 puff Documented by: Aspirin (Aspirin E.C. 81 Mg Tablet) 81 mg PO DAILY [facility] Last Admin: 08/27/20 08:13 Dose: 81 mg Documented by: Atorvastatin Calcium (Atorvastatin Calcium 40 Mg Tablet) 40 mg PO QHS [facility] Last Admin: 08/27/20 21:06 Dose: 40 mg Documented by: Dexamethasone (Dexamethasone 4 Mg Tablet) 6 mg PO QAM [facility] Stop: 09/03/20 10:01 Last Admin: 08/27/20 08:13 Dose: 6 mg Documented by: Enoxaparin Sodium (Enoxaparin 30 Mg/0.3 Ml Syringe) 30 mg SC BID [facility] Last Admin: 08/27/20 20:57 Dose: 30 mg Documented by: Fluticasone Propionate (Fluticasone 0.05% 1 [place] Nasal.Sry) 1 spray NASAL DAILY PRN PRN PRN Reason: congestion Guaifenesin (Guaifenesin 10 Ml Udc (200mg/10ml)) 20 ml PO Q4H PRN PRN PRN Reason: COUGH Last Admin: 08/28/20 05:38 Dose: 20 ml Documented by: Sodium Chloride () 250 mls @ 15 mls/hr IV .[id number] PRN PRN Reason: Saline Flush Sodium Chloride () 250 mls @ 15 mls/hr IV .[id number] PRN PRN Reason: Additional IVPB Infusion Ibuprofen (Ibuprofen 400 Mg Tablet) 800 mg PO Q6H PRN PRN PRN Reason: Pain 1-10 or Fever Last Admin: 08/28/20 05:38 Dose: 800 mg Documented by: Lisinopril (Lisinopril 10 Mg Tablet) 10 mg PO DAILY [facility] Last Admin: 08/27/20 08:13 Dose: 10 mg Documented by: Melatonin (Melatonin 3 Mg Tablet) 3 mg PO QHS PRN PRN PRN Reason: INSOMNIA Last Admin: 08/27/20 21:08 Dose: 3 mg Documented by: Miscellaneous Information (Inhaler, Assist Devices 1 Each Spacer) 1 each INHALATION PRN PRN PRN Reason: WITH ALBUTEROL MDI Montelukast Sodium (Montelukast 10 Mg Tablet) 10 mg PO QHS [facility] Last Admin: 08/27/20 20:57 Dose: 10 mg Documented by: Ondansetron HCl (Ondansetron 4 Mg/2 Ml Vial) 4 mg IV Q8H PRN PRN PRN Reason: NAUSEA/VOMITING Last Admin: 08/27/20 00:42 Dose: 4 mg Documented by: Pantoprazole Sodium (Pantoprazole Sodium 20 Mg Tablet) 20 mg PO DAILY [facility] Last Admin: 08/27/20 08:13 Dose: 20 mg Documented by: Sodium Chloride (0.9% Saline Lock 10 Ml Syringe) 10 - 40 ml IV UD PRN PRN Reason: SALINE FLUSH Last Admin: 08/27/20 10:08 Dose: 10 ml Documented by: Throat Lozenges (Benzocaine/Menthol 1 Lozenge) 1 lozenge MUCOUS MEM Q2H PRN PRN PRN Reason: SORE THROAT Assessment/Plan All Active Problems (Last Reviewed 08/23/20 @ 14:[address] David Crow, DO) COVID-19 (Acute) Hypoxia (Acute) RECOMMENDATIONS: 1. Continue Decadron 6 mg daily. 2. Continue BiPAP therapy and wean FiO2 to maintain oxygen saturations at or above 90%. 3. Start scheduled IV Lasix therapy as tolerated by hemodynamics and renal function. 4. Recheck BMP in the morning. 5. Obtain repeat plain film chest x-ray. IMPRESSIONS: 1. Acute hypoxemic respiratory failure secondary to COVID-19 pneumonia The patient initially presented to the hospital with Covid-like symptoms that began towards the end of July. The patient thus far has received convalescent plasma and was initially started on remdesivir. However, the remdesivir had to be discontinued due to worsening liver function. The patient remains on scheduled Decadron 6 mg daily. His oxygenation status has slowly declined over the course of the hospitalization. The patient was receiving supplemental IV fluids and does have a history of heart failure with preserved ejection fraction. Therefore, we will start the patient on IV diuretic therapy as tolerated by hemodynamics and renal function. The patient will be continued on BiPAP for now with plans to wean FiO2 to maintain oxygen saturations at or above 90%. 2. Hypertension/hyperlipidemia/GERD Complicates care, management, recovery and prognosis. Continue home medications as indicated. This note was generated with [employer] dictation software. It may contain incorrect words, spelling, and punctuation that were not noted in checking the note before signing. Inpatient E&M: 54207 Init Hosp L3
[2020-08-28] MEDS: Lisinopril 10 MG Tablet PO (10:52)
[2020-08-28] MEDS: dexAMETHasone 4 MG Tablet 6 MG PO (10:52)
[2020-08-28] MEDS: Pantoprazole Sodium 20 MG Tablet PO (10:52)
[2020-08-28] MEDS: Enoxaparin 30 MG/0.3 ML Syringe SC ×2 (10:52→21:02)
[2020-08-28] MEDS: Aspirin E.C. 81 MG Tablet PO (10:52)
[2020-08-28] MEDS: 0.9% Saline Lock 10 ML Syringe IV ×2 (11:05→17:34)
[2020-08-28] MEDS: Furosemide 40 MG/4 ML Vial IV ×2 (11:07→17:34)
--- NOTE | 2020-08-28 11:48 | PN.ID_ITS ---
Patient Problems: Active and Suspected Problems (Last Reviewed 08/23/20 @ 14:[address] David Crow, DO) COVID-19 (Acute) Hypoxia (Acute) Subjective: Still high O2, trouble sleeping, no fever - Physical Exam Vitals/I&O's: Vital Signs Temp Pulse Resp BP Pulse Ox 97.8 F 80 18 122/70 H 96 08/28/20 09:07 08/28/20 10:59 08/28/20 09:07 08/28/20 09:07 08/28/20 09:07 Oxygen Flow Rate (L/min) 70 Oxygen Delivery Method Bi-pap Weight: 83.552 kg Body Mass Index (BMI) 27.1 Intake and Output for Last 24 Hours 08/26/20 08/27/20 08/28/20 23:59 23:59 23:59 Intake Total 600 / 600 3100 / 3100 1702.5 / 1702.5 Output Total 350 / 350 Balance 600 / 600 3100 / 3100 1352.5 / 1352.5 General: Alert, Cooperative, No apparent distress Lungs: Diminished Cardiovascular: Regular rate, Regular Rhythm Abdomen: Soft, Non Tender, Non-Distended Skin: No rashes Microbiology Past 72 Hours 08/23/20 14:03 Blood Culture (Wb) - Right Hand Blood Culture - Preliminary No growth in 48 hours. 08/23/20 13:07 Blood Culture (Wb) - Anticubital Left Blood Culture - Preliminary No growth in 48 hours. Laboratory Results 08/28/20 05:15: WBC 14.2 H, RBC 3.83 L, Hgb 11.9 L, Hct 37.4 L, MCV 97.7 H, MCH 31.1, MCHC 31.8 L, RDW Std Deviation 50.9 H, RDW Coeff of Renzo 14.2, Plt Count 356, MPV 11.6 08/28/20 05:15: B-Natriuretic Peptide Pending 08/28/20 05:15: Sodium 144, Potassium 4.1, Chloride 111 H, Carbon Dioxide 26.0, Anion Gap 7, BUN 26 H, Creatinine 0.85, Estim Creat Clear Calc 87.80, Est GFR (MDRD) Af Amer 117, Est GFR (MDRD) Non-Af 97, BUN/Creatinine Ratio 30.7 H, Glucose 85, Calcium 8.0 L, Total Bilirubin 0.70, AST 100 H, ALT 169 H, Alkaline Phosphatase 213 H, Total Protein 6.9, Albumin 2.2 L, Globulin 4.7 H, Albumin/Globulin Ratio 0.5 L Current Medications Acetaminophen (Acetaminophen 325 Mg Tablet) 650 mg PO Q6H PRN PRN PRN Reason: Pain Score 1-10/Temp > 100.7 F Last Admin: 08/25/20 16:34 Dose: 650 mg Documented by: Albuterol Sulfate (Albuterol Sulfate 18 Gm Inhaler (200 Puffs)) 2 puff IH Q4H PRN PRN PRN Reason: SOB or wheezing Last Admin: 08/28/20 02:00 Dose: 2 puff Documented by: Aspirin (Aspirin E.C. 81 Mg Tablet) 81 mg PO DAILY [facility] Last Admin: 08/28/20 10:52 Dose: 81 mg Documented by: Atorvastatin Calcium (Atorvastatin Calcium 40 Mg Tablet) 40 mg PO QHS [facility] Last Admin: 08/27/20 21:06 Dose: 40 mg Documented by: Dexamethasone (Dex[facility] 4 Mg Tablet) [facility] [place] Stop: 09/03/20 10:01 Last Admin: 08/28/20 10:52 Dose: 6 mg Documented by: Enoxaparin Sodium (Enoxaparin 30 Mg/0.3 Ml Syringe) 30 mg SC BID [facility] Last Admin: 08/28/20 10:52 Dose: 30 mg Documented by: Fluticasone Propionate (Fluticasone 0.05% 1 [place] Nasal.Sry) 1 spray NASAL DAILY PRN PRN PRN Reason: congestion Furosemide (Furosemide 40 Mg/4 Ml Vial) 40 mg IV BID@1000,1800 [facility] Last Admin: 08/28/20 11:07 Dose: 40 mg Documented by: Guaifenesin (Guaifenesin 10 Ml Udc (200mg/10ml)) 20 ml PO Q4H PRN PRN PRN Reason: COUGH Last Admin: 08/28/20 05:38 Dose: 20 ml Documented by: Sodium Chloride () 250 mls @ 15 mls/hr IV .[id number] PRN PRN Reason: Saline Flush Sodium Chloride () 250 mls @ 15 mls/hr IV .[id number] PRN PRN Reason: Additional IVPB Infusion Ibuprofen (Ibuprofen 400 Mg Tablet) 800 mg PO Q6H PRN PRN PRN Reason: Pain 1-10 or Fever Last Admin: 08/28/20 11:33 Dose: 800 mg Documented by: Lisinopril (Lisinopril 10 Mg Tablet) 10 mg PO DAILY [facility] Last Admin: 08/28/20 10:52 Dose: 10 mg Documented by: Melatonin (Melatonin 3 Mg Tablet) 3 mg PO QHS PRN PRN PRN Reason: INSOMNIA Last Admin: 08/27/20 21:08 Dose: 3 mg Documented by: Miscellaneous Information (Inhaler, Assist Devices 1 Each Spacer) 1 each INHALATION PRN PRN PRN Reason: WITH ALBUTEROL MDI Montelukast Sodium (Montelukast 10 Mg Tablet) 10 mg PO QHS [facility] Last Admin: 08/27/20 20:57 Dose: 10 mg Documented by: Ondansetron HCl (Ondansetron 4 Mg/2 Ml Vial) 4 mg IV Q8H PRN PRN PRN Reason: NAUSEA/VOMITING Last Admin: 08/27/20 00:42 Dose: 4 mg Documented by: Pantoprazole Sodium (Pantoprazole Sodium 20 Mg Tablet) 20 mg PO DAILY [facility] Last Admin: 08/28/20 10:52 Dose: 20 mg Documented by: Sodium Chloride (0.9% Saline Lock 10 Ml Syringe) 10 - 40 ml IV UD PRN PRN Reason: SALINE FLUSH Last Admin: 08/28/20 11:05 Dose: 10 ml Documented by: Throat Lozenges (Benzocaine/Menthol 1 Lozenge) 1 lozenge MUCOUS MEM Q2H PRN PRN PRN Reason: SORE THROAT Medical Necessity - Tobacco Use Smoking Status: Former smoker Tobacco Use: Cigarettes, Chew Route of nutrition/ use of supplements: [] Nutritional Intake: [] IV Site: [] Alaniz Catheter: [] - Assessment/Plan Antibiotics: [] Assessment/Plan: [] Active and Suspected Problems (Last Reviewed 08/23/20 @ 14:[address] David Crow, ) COVID-19 (Acute) Hypoxia (Acute) On dex. Got plasma 08/25. Started remdesivir 08/25, but had rise in ALT to 306, so stopped the following day. On 75% bipap. CT neg for PE. On lovenox 30mg bid. Feeling better but with still high/slightly worsening hypoxia, will consult pulm for assistance. Will follow, d/w Dr. Corbett
--- NOTE | 2020-08-28 13:33 | RAD_ITS ---
STUDY: X-RAY CHEST REASON FOR EXAM: Male, 64 years old. Respiratory failure, covid positive TECHNIQUE: Single AP portable view of the chest. COMPARISON: Comparison is made with prior study dated 08/23/2020. FINDINGS: Since prior study, there now is evidence of infiltration in the right hemithorax. Mild infiltrate in the left lower lobe. There is no demonstrated pleural abnormality. Normal size heart. Normal mediastinum and pennie. Normal visualized pulmonary arteries. Normal visualized aortic arch and descending thoracic aorta. Normal visualized thoracic spine. Normal visualized ribs, clavicles, and shoulders. There is no demonstrated abnormality of the visualized soft tissue structures of the upper abdomen. RAD/Chest 1 View (Portable) IMPRESSION: Progressive infiltrate in the right hemithorax as well as at the left lung base. Electronically Signed: Mart Navarro, at 14:23 EST , Service support ,
[2020-08-28 13:34] LABS: BNP,B-Type NATRIURETIC PEPTIDE 46.7 pg/mL (0-100)
[2020-08-28] MEDS: Montelukast 10 MG Tablet PO (21:02)
[2020-08-28] MEDS: Atorvastatin Calcium 40 MG Tablet PO (21:02)
[2020-08-28] MEDS: MELATONIN 3 MG TABLET PO (21:06)
[2020-08-29] VITALS (28 sets, daily range): BP systolic 101–135; BP diastolic 58–89; PULSE 68–99; RESP 12–35; TEMP 36.1–37.2; O2SAT 85–99
[2020-08-29 07:18] LABS: Hematocrit 39.5 % (40-54); Mean Corp Hgb Conc 32.9 g/dL (32-36); Mean Corpuscular Hgb 31.2 pg (27.0-32.0); Mean Corpuscular Volume 94.7 fL (80-94); Mean Platelet Vol. 11.5 fl (6.2-12.0); Platelet Count 394 K/mm3 (150-450); RBC Distribution Width CV 14.1 % (11.6-14.6); RBC Distribution Width SD 48.8 fl (35.1-43.9); Red Blood Count 4.17 M/mm3 (4.6-6.2); White Blood Count 14.3 K/mm3 (4.4-11.0)
[2020-08-29 08:08] LABS: Anion Gap 9 (5-15); BUN 29 mg/dL (7-18); BUN/Creat Ratio 29.5 RATIO (10-20); Calcium,Total 8.7 mg/dL (8.5-10.1); Chloride 106 mmol/L (98-107); Creatinine, Serum 0.98 mg/dL (0.70-1.30); EST Glomerular Filtration Rate 81 mL/min (>60); Est Glom Filt Rate - Afr Amer 99 mL/min (>60); Estimated Creatinine Clearance 76.15 ml/min; Glucose 77 mg/dL (74-106); Potassium 3.5 mmol/L (3.5-5.1); Sodium Level 142 mmol/L (136-145)
[2020-08-29] MEDS: dexAMETHasone 4 MG Tablet 6 MG PO (09:04)
[2020-08-29] MEDS: Enoxaparin 30 MG/0.3 ML Syringe SC ×2 (09:05→19:50)
[2020-08-29] MEDS: Aspirin E.C. 81 MG Tablet PO (09:05)
[2020-08-29] MEDS: Lisinopril 10 MG Tablet PO (09:05)
[2020-08-29] MEDS: Pantoprazole Sodium 20 MG Tablet PO (09:05)
[2020-08-29] MEDS: Furosemide 40 MG/4 ML Vial IV ×2 (09:05→19:50)
[2020-08-29] MEDS: 0.9% Saline Lock 10 ML Syringe IV ×4 (09:07→21:52)
--- NOTE | 2020-08-29 10:25 | PN_ITS ---
Patient Problems: Active and Suspected Problems (Last Reviewed 08/23/20 @ 14:[address] David Crow, DO) COVID-19 (Acute) Hypoxia (Acute) Subjective: Patient was seen and examined today, he remains on BiPAP, he states he is not feeling well. Patient denies any chest pain, fevers, or chills. He complains of a dry mouth. - Physical Exam Vitals/I&O's: Vital Signs Temp Pulse Resp BP Pulse Ox 97.3 F L 89 22 H 121/72 H 93 08/29/20 08:55 08/29/20 08:55 08/29/20 08:55 08/29/20 08:55 08/29/20 08:55 Oxygen Flow Rate (L/min) 70 Oxygen Delivery Method Bi-pap Weight: 83.552 kg Body Mass Index (BMI) 27.1 Intake and Output for Last 24 Hours 08/27/20 08/28/20 08/29/20 23:59 23:59 23:59 Intake Total 3100 / 3100 1977.5 / 1977.5 100 / 100 Output Total 2650 / 2650 300 / 300 Balance 3100 / 3100 -672.5 / -672.5 -200 / -200 General: Alert, Oriented x3, Cooperative, No apparent distress, Well developed, Well nourished HEENT: Atraumatic, PERRLA, EOMI, Normocephalic Oral: Moist Mucosa Neck: Supple, No JVD, Trachea Midline, Thyroid Normal Size and Texture Lungs: Normal air movement, No rhonchi, No wheeze, Rales - Scattered inspiratory rales are noted bilaterally Cardiovascular: Regular rate, Regular Rhythm, Normal S1, Normal S2, No murmurs Abdomen: Bowel Sounds Present, Soft, Non Tender, Non-Distended Extremities: No clubbing, No cyanosis, No edema, Capillary Refill Less than 3 Seconds Skin: No rashes, No breakdown Musculoskeletal: No Tenderness to Palpation of Joints or Extremities Neurological: Cranial nerves II-XII grossly intact, Neuro grossly intact, Se nsory exam intact to light touch and pain, Coordination normal Psych/Mental Status: Normal Affect, Appropriate, Alert and oriented to time, place, person, mood and affect Microbiology Past 72 Hours 08/23/20 14:03 Blood Culture (Wb) - Right Hand Blood Culture - Final No growth in 5 days. 08/23/20 13:07 Blood Culture (Wb) - Anticubital Left Blood Culture - Final No growth in 5 days. Laboratory Results 08/28/20 05:15: B-Natriuretic Peptide 46.7 08/29/20 05:30: WBC 14.3 H, RBC 4.17 L, Hgb 13.0, Hct 39.5 L, MCV 94.7 H, MCH 31.2, MCHC 32.9, RDW Std Deviation 48.8 H, RDW Coeff of Renzo 14.1, Plt Count 394, MPV 11.5 08/29/20 05:30: Sodium 142, Potassium 3.5, Chloride 106, Carbon Dioxide 27.0, Anion Gap 9, BUN 29 H, Creatinine 0.98, Estim Creat Clear Calc 76.15, Est GFR (MDRD) Af Amer 99, Est GFR (MDRD) Non-Af 81, BUN/Creatinine Ratio 29.5 H, Glucose 77, Calcium 8.7 Current Medications Acetaminophen (Acetaminophen 325 Mg Tablet) 650 mg PO Q6H PRN PRN PRN Reason: Pain Score 1-10/Temp > 100.7 F Last Admin: 08/25/20 16:34 Dose: 650 mg Documented by: Albuterol Sulfate (Albuterol Sulfate 18 Gm Inhaler (200 Puffs)) 2 puff IH Q4H PRN PRN PRN Reason: SOB or wheezing Last Admin: 08/28/20 02:00 Dose: 2 puff Documented by: Aspirin (Aspirin E.C. 81 Mg Tablet) 81 mg PO DAILY [facility] Last Admin: 08/29/20 09:05 Dose: 81 mg Documented by: Atorvastatin Calcium (Atorvastatin Calcium 40 Mg Tablet) 40 mg PO QHS [facility] Last Admin: 08/28/20 21:02 Dose: 40 mg Documented by: Dexamethasone (Dexamethasone 4 Mg Tablet) 6 mg PO QAM [facility] Stop: 09/03/20 10:01 Last Admin: 08/29/20 09:04 Dose: 6 mg Documented by: Enoxaparin Sodium (Enoxaparin 30 Mg/0.3 Ml Syringe) 30 mg SC BID [facility] Last Admin: 08/29/20 09:05 Dose: 30 mg Documented by: Fluticasone Propionate (Fluticasone 0.05% 1 [place] Nasal.Sry) 1 spray NASAL DAILY PRN PRN PRN Reason: congestion Furosemide (Furosemide 40 Mg/4 Ml Vial) 40 mg IV BID@1000,1800 [facility] Last Admin: 08/29/20 09:05 Dose: 40 mg Documented by: Guaifenesin (Guaifenesin 10 Ml Udc (200mg/10ml)) 20 ml PO Q4H PRN PRN PRN Reason: COUGH Last Admin: 08/28/20 05:38 Dose: 20 ml Documented by: Sodium Chloride () 250 mls @ 15 mls/hr IV .[id number] PRN PRN Reason: Saline Flush Sodium Chloride () 250 mls @ 15 mls/hr IV .[id number] PRN PRN Reason: Additional IVPB Infusion Ibuprofen (Ibuprofen 400 Mg Tablet) 800 mg PO Q6H PRN PRN PRN Reason: Pain 1-10 or Fever Last Admin: 08/28/20 21:06 Dose: 800 mg Documented by: Lisinopril (Lisinopril 10 Mg Tablet) 10 mg PO DAILY [facility] Last Admin: 08/29/20 09:05 Dose: 10 mg Documented by: Melatonin (Melatonin 3 Mg Tablet) 3 mg PO QHS PRN PRN PRN Reason: INSOMNIA Last Admin: 08/28/20 21:06 Dose: 3 mg Documented by: Miscellaneous Information (Inhaler, Assist Devices 1 Each Spacer) 1 each INHALATION PRN PRN PRN Reason: WITH ALBUTEROL MDI Montelukast Sodium (Montelukast 10 Mg Tablet) 10 mg PO QHS [facility] Last Admin: 08/28/20 21:02 Dose: 10 mg Documented by: Ondansetron HCl (Ondansetron 4 Mg/2 Ml Vial) 4 mg IV Q8H PRN PRN PRN Reason: NAUSEA/VOMITING Last Admin: 08/27/20 00:42 Dose: 4 mg Documented by: Pantoprazole Sodium (Pantoprazole Sodium 20 Mg Tablet) 20 mg PO DAILY [facility] Last Admin: 08/29/20 09:05 Dose: 20 mg Documented by: Sodium Chloride (0.9% Saline Lock 10 Ml Syringe) 10 - 40 ml IV UD PRN PRN Reason: SALINE FLUSH Last Admin: 08/29/20 09:07 Dose: 10 ml Documented by: Throat Lozenges (Benzocaine/Menthol 1 Lozenge) 1 lozenge MUCOUS MEM Q2H PRN PRN PRN Reason: SORE THROAT Medical Necessity - Tobacco Use Smoking Status: Former smoker Tobacco Use: Cigarettes, Chew Assessment/Plan All Active Problems (Last Reviewed 08/23/20 @ 14:[address] David Crow, DO) COVID-19 (Acute) Hypoxia (Acute) #1 acute COVID-19 multi lobar pneumonia-continue present treatment per infectious diseases, patient is no longer on remdesivir, he remains on dexamethasone. #2 acute hypoxic respiratory failure-continue to wean oxygen as tolerated, patient is currently on high flow oxygen/BiPAP, patient will not be able to be discharged until his oxygen requirement is decreased, patient is being followed by pulmonary medicine #3 essential hypertension #4 hyperlipidemia Inpatient E&M: 43973 Subs Hosp L2
--- NOTE | 2020-08-29 12:49 | PCM.PN.PUL ---
Patient Problems: Active and Suspected Problems (Last Reviewed 08/23/20 @ 14:[address] David Crow, DO) COVID-19 (Acute) Hypoxia (Acute) Subjective: The patient was seen and examined at the bedside this morning. Events from the last 24 hours have been reviewed. The patient is currently afebrile, hemodynamically stable and maintaining appropriate oxygen saturations on BiPAP with an FiO2 requirement of 70%. The patient reports that he feels about the same as yesterday. The patient has already received convalescent plasma and remains on Decadron daily as well. The patient is now on twice daily scheduled Lasix. Objective: The patient's most recent lab work, culture data and imaging studies have all been personally reviewed. Surface echocardiogram from April 2019 revealed evidence of stage I diastolic dysfunction. Coronavirus PCR was positive on August 19. Strep and urine Legionella antigens were negative. Blood cultures have shown no growth to date. - Physical Exam Vitals/I&O's: Vital Signs Temp Pulse Resp BP Pulse Ox 98.2 F 99 20 H 135/79 H 92 08/29/20 11:40 08/29/20 11:40 08/29/20 11:40 08/29/20 11:40 08/29/20 11:40 Oxygen Flow Rate (L/min) 70 Oxygen Delivery Method Bi-pap Weight: 184 lb 3.21 oz Body Mass Index (BMI) 27.1 Intake and Output for Last 24 Hours 08/27/20 08/28/20 08/29/20 23:59 23:59 23:59 Intake Total 3100 / 3100 1977.5 / 1977.5 500 / 500 Output Total 2650 / 2650 1300 / 1300 Balance 3100 / 3100 -672.5 / -672.5 -800 / -800 General: Alert, Cooperative, No apparent distress HEENT: Atraumatic, Normocephalic Oral: Dry Mucosa Neck: Supple, No Nodes, Trachea Midline Lungs: No rhonchi, No wheeze, No rales, Diminished Cardiovascular: Regular rate, Regular Rhythm Abdomen: Bowel Sounds Present, Soft, Non Tender Extremities: No clubbing, No cyanosis, No edema Skin: No breakdown Musculoskeletal: No Tenderness to Palpation of Joints or Extremities Lymphatic: No Cervical, Supraclavicular, or Inguinal Adenopathy Neurological: Neuro grossly intact Psych/Mental Status: Normal Affect, Appropriate Labs (Last 48 Hours) 08/28/20 08/28/20 08/28/20 05:15 05:15 05:15 WBC 14.2 H RBC 3.83 L Hgb 11.9 L Hct 37.4 L MCV 97.7 H MCH 31.1 MCHC 31.8 L RDW Std Deviation 50.9 H RDW Coeff of Renzo 14.2 Plt Count 356 MPV 11.6 Sodium 144 Potassium 4.1 Chloride 111 H Carbon Dioxide 26.0 Anion Gap 7 BUN 26 H Creatinine 0.85 Estim Creat Clear Calc 87.80 Est GFR (MDRD) Af Amer 117 Est GFR (MDRD) Non-Af 97 BUN/Creatinine Ratio 30.7 H Glucose 85 Calcium 8.0 L Total Bilirubin 0.70 AST 100 H ALT 169 H Alkaline Phosphatase 213 H B-Natriuretic Peptide 46.7 Total Protein 6.9 Albumin 2.2 L Globulin 4.7 H Albumin/Globulin Ratio 0.5 L 08/29/20 08/29/20 05:30 05:30 WBC 14.3 H RBC 4.17 L Hgb 13.0 Hct 39.5 L MCV 94.7 H MCH 31.2 MCHC 32.9 RDW Std Deviation 48.8 H RDW Coeff of Renzo 14.1 Plt Count 394 MPV 11.5 Sodium 142 Potassium 3.5 Chloride 106 Carbon Dioxide 27.0 Anion Gap 9 BUN 29 H Creatinine 0.98 Estim Creat Clear Calc 76.15 Est GFR (MDRD) Af Amer 99 Est GFR (MDRD) Non-Af 81 BUN/Creatinine Ratio 29.5 H Glucose 77 Calcium 8.7 Total Bilirubin AST ALT Alkaline Phosphatase B-Natriuretic Peptide Total Protein Albumin Globulin Albumin/Globulin Ratio Microbiology 08/23/20 14:03 Blood Culture (Wb) - Right Hand Blood Culture - Final No growth in 5 days. 08/23/20 13:07 Blood Culture (Wb) - Anticubital Left Blood Culture - Final No growth in 5 days. Clinical Impression(s) from Imaging Studies Chest X-Ray 08/23/20 13:06 IMPRESSION: 1. Hypoinflation with multilobar interstitial and groundglass opacities. Differential considerations include pulmonary edema, pneumonia (including typical and atypical varieties) and development of interstitial fibrotic lung disease. Electronically Signed: Prakash Addison MD ([place]) at 13:33 EDT , Service support , Chest CTA 08/24/20 14:52 IMPRESSION: 1. No central or segmental pulmonary embolism. 2. Multilobar peripheral dominant groundglass opacities with mild interlobular septal thickening and areas of groundglass opacity. Commonly reported imaging features of COVID-19 pneumonia. Other processes such as influenza pneumonia organizing pneumonia, that can be seen with drug toxicity and connective tissue disease can cause a similar imaging pattern. Electronically Signed: Prakash Addison MD ([place]) at 15:58 EST , Service support , Chest X-Ray 08/28/20 13:33 IMPRESSION: Progressive infiltrate in the right hemithorax as well as at the left lung base. Electronically Signed: Mart Navarro at 14:23 EST , Service support , Current Medications Acetaminophen (Acetaminophen 325 Mg Tablet) 650 mg PO Q6H PRN PRN PRN Reason: Pain Score 1-10/Temp > 100.7 F Last Admin: 08/25/20 16:34 Dose: 650 mg Documented by: Albuterol Sulfate (Albuterol Sulfate 18 Gm Inhaler (200 Puffs)) 2 puff IH Q4H PRN PRN PRN Reason: SOB or wheezing Last Admin: 08/29/20 11:47 Dose: 2 puff Documented by: Aspirin (Aspirin E.C. 81 Mg Tablet) 81 mg PO DAILY [facility] Last Admin: 08/29/20 09:05 Dose: 81 mg Documented by: Atorvastatin Calcium (Atorvastatin Calcium 40 Mg Tablet) 40 mg PO QHS [facility] Last Admin: 08/28/20 21:02 Dose: 40 mg Documented by: Dexamethasone (Dexamethasone 4 Mg Tablet) 6 mg PO QAM [facility] Stop: 09/03/20 10:01 Last Admin: 08/29/20 09:04 Dose: 6 mg Documented by: Enoxaparin Sodium (Enoxaparin 30 Mg/0.3 Ml Syringe) 30 mg SC BID [facility] Last Admin: 08/29/20 09:05 Dose: 30 mg Documented by: Fluticasone Propionate (Fluticasone 0.05% 1 [place] Nasal.Sry) 1 spray NASAL DAILY PRN PRN PRN Reason: congestion Furosemide (Furosemide 40 Mg/4 Ml Vial) 40 mg IV BID@1000,1800 [facility] Last Admin: 08/29/20 09:05 Dose: 40 mg Documented by: Guaifenesin (Guaifenesin 10 Ml Udc (200mg/10ml)) 20 ml PO Q4H PRN PRN PRN Reason: COUGH Last Admin: 08/28/20 05:38 Dose: 20 ml Documented by: Sodium Chloride () 250 mls @ 15 mls/hr IV .[id number] PRN PRN Reason: Saline Flush Sodium Chloride () 250 mls @ 15 mls/hr IV .[id number] PRN PRN Reason: Additional IVPB Infusion Ibuprofen (Ibuprofen 400 Mg Tablet) 800 mg PO Q6H PRN PRN PRN Reason: Pain 1-10 or Fever Last Admin: 08/28/20 21:06 Dose: 800 mg Documented by: Lisinopril (Lisinopril 10 Mg Tablet) 10 mg PO DAILY [facility] Last Admin: 08/29/20 09:05 Dose: 10 mg Documented by: Lorazepam (Lorazepam 2 Mg/Ml Syringe) 0.5 mg IV Q6H PRN PRN PRN Reason: ANXIETY/AGITATION Melatonin (Melatonin 3 Mg Tablet) 3 mg PO QHS PRN PRN PRN Reason: INSOMNIA Last Admin: 08/28/20 21:06 Dose: 3 mg Documented by: Miscellaneous Information (Inhaler, Assist Devices 1 Each Spacer) 1 each INHALATION PRN PRN PRN Reason: WITH ALBUTEROL MDI Montelukast Sodium (Montelukast 10 Mg Tablet) 10 mg PO QHS [facility] Last Admin: 08/28/20 21:02 Dose: 10 mg Documented by: Ondansetron HCl (Ondansetron 4 Mg/2 Ml Vial) 4 mg IV Q8H PRN PRN PRN Reason: NAUSEA/VOMITING Last Admin: 08/27/20 00:42 Dose: 4 mg Documented by: Pantoprazole Sodium (Pantoprazole Sodium 20 Mg Tablet) 20 mg PO DAILY [facility] Last Admin: 08/29/20 09:05 Dose: 20 mg Documented by: Sodium Chloride (0.9% Saline Lock 10 Ml Syringe) 10 - 40 ml IV UD PRN PRN Reason: SALINE FLUSH Last Admin: 08/29/20 09:07 Dose: 10 ml Documented by: Throat Lozenges (Benzocaine/Menthol 1 Lozenge) 1 lozenge MUCOUS MEM Q2H PRN PRN PRN Reason: SORE THROAT Medical Necessity - Tobacco Use Smoking Status: Former smoker Tobacco Use: Cigarettes, Chew Assessment/Plan All Active Problems (Last Reviewed 08/23/20 @ 14:[address] David Crow, DO) COVID-19 (Acute) Hypoxia (Acute) RECOMMENDATIONS: 1. Continue Decadron 6 mg daily. 2. Continue BiPAP therapy and wean FiO2 to maintain oxygen saturations at or above 90%. 3. Continue scheduled IV Lasix therapy as tolerated by hemodynamics and renal function. 4. Recheck BMP in the morning. IMPRESSIONS: 1. Acute hypoxemic respiratory failure secondary to COVID-19 pneumonia The patient initially presented to the hospital with Covid-like symptoms that began towards the end of July. The patient thus far has received convalescent plasma and was initially started on remdesivir. However, the remdesivir had to be discontinued due to worsening liver function. The patient remains on scheduled Decadron 6 mg daily. His oxygenation status has slowly declined over the course of the hospitalization. The patient was receiving supplemental IV fluids and does have a history of heart failure with preserved ejection fraction. Therefore, the patient will be continued on IV diuretic therapy as tolerated by hemodynamics and renal function. The patient will be continued on BiPAP for now with plans to wean FiO2 to maintain oxygen saturations at or above 90%. 2. Hypertension/hyperlipidemia/GERD Complicates care, management, recovery and prognosis. Continue home medications as indicated. This note was generated with [email or web address] dictation software. It may contain incorrect words, spelling, and punctuation that were not noted in checking the note before signing. Inpatient E&M: 74121 [facility] Hosp L3
[2020-08-29] MEDS: LORazepam 2 MG/ML Syringe 0.5 MG IV ×2 (12:52→21:52)
[2020-08-29] MEDS: Potassium Chloride 10mEq/100mL 10 MEQ/100 ML IV.SOLN. 100 MEQ IV BOLUS (14:23)
[2020-08-29] MEDS: Potassium Chloride 10mEq/100mL 10 MEQ/100 ML IV.SOLN. 80 MEQ IV BOLUS ×3 (15:43→19:21)
--- NOTE | 2020-08-29 16:13 | PCM.PN.ID ---
Patient Problems: Active and Suspected Problems (Last Reviewed 08/23/20 @ 14:[address] David Crow, DO) COVID-19 (Acute) Hypoxia (Acute) Subjective: Feeling better today, O2 improved, no n/v/d. - Physical Exam Vitals/I&O's: Vital Signs Temp Pulse Resp BP Pulse Ox 98.9 F 78 24 H 125/68 H 93 08/29/20 14:40 08/29/20 15:10 08/29/20 15:10 08/29/20 14:40 08/29/20 15:10 Oxygen Flow Rate (L/min) 70 Oxygen Delivery Method Bi-pap Weight: 83.552 kg Body Mass Index (BMI) 27.1 Intake and Output for Last 24 Hours 08/27/20 08/28/20 08/29/20 23:59 23:59 23:59 Intake Total 3100 / 3100 1977.5 / 1977.5 600.00 / 600.00 Output Total 2650 / 2650 1300 / 1300 Balance 3100 / 3100 -672.5 / -672.5 -700.00 / -700.00 General: Alert, Cooperative, No apparent distress Lungs: Diminished Cardiovascular: Regular rate, Regular Rhythm Abdomen: Soft, Non Tender, Non-Distended Skin: No rashes Microbiology Past 72 Hours 08/23/20 14:03 Blood Culture (Wb) - Right Hand Blood Culture - Final No growth in 5 days. 08/23/20 13:07 Blood Culture (Wb) - Anticubital Left Blood Culture - Final No growth in 5 days. Laboratory Results 08/29/20 05:30: WBC 14.3 H, RBC 4.17 L, Hgb 13.0, Hct 39.5 L, MCV 94.7 H, MCH 31.2, MCHC 32.9, RDW Std Deviation 48.8 H, RDW Coeff of Renzo 14.1, Plt Count 394, MPV 11.5 08/29/20 05:30: Sodium 142, Potassium 3.5, Chloride 106, Carbon Dioxide 27.0, Anion Gap 9, BUN 29 H, Creatinine 0.98, Estim Creat Clear Calc 76.15, Est GFR (MDRD) Af Amer 99, Est GFR (MDRD) Non-Af 81, BUN/Creatinine Ratio 29.5 H, Glucose 77, Calcium 8.7 Current Medications Acetaminophen (Acetaminophen 325 Mg Tablet) 650 mg PO Q6H PRN PRN PRN Reason: Pain Score 1-10/Temp > 100.7 F Last Admin: 08/25/20 16:34 Dose: 650 mg Documented by: Albuterol Sulfate (Albuterol Sulfate 18 Gm Inhaler (200 Puffs)) 2 puff IH Q4H PRN PRN PRN Reason: SOB or wheezing Last Admin: 08/29/20 11:47 Dose: 2 puff Documented by: Aspirin (Aspirin E.C. 81 Mg Tablet) 81 mg PO DAILY [facility] Last Admin: 08/29/20 09:05 Dose: 81 mg Documented by: Atorvastatin Calcium (Atorvastatin Calcium 40 Mg Tablet) 40 mg PO QHS [facility] Last Admin: 08/28/20 21:02 Dose: 40 mg Documented by: Dexamethasone (Dexamethasone 4 Mg Tablet) 6 mg PO QAM [facility] Stop: 09/03/20 10:01 Last Admin: 08/29/20 09:04 Dose: 6 mg Documented by: Enoxaparin Sodium (Enoxaparin 30 Mg/0.3 Ml Syringe) 30 mg SC BID [facility] Last Admin: 08/29/20 09:05 Dose: 30 mg Documented by: Fluticasone Propionate (Fluticasone 0.05% 1 [place] Nasal.Sry) 1 spray NASAL DAILY PRN PRN PRN Reason: congestion Furosemide (Furosemide 40 Mg/4 Ml Vial) 40 mg IV BID@1000,1800 [facility] Last Admin: 08/29/20 09:05 Dose: 40 mg Documented by: Guaifenesin (Guaifenesin 10 Ml Udc (200mg/10ml)) 20 ml PO Q4H PRN PRN PRN Reason: COUGH Last Admin: 08/28/20 05:38 Dose: 20 ml Documented by: Sodium Chloride () 250 mls @ 15 mls/hr IV .[id number] PRN PRN Reason: Saline Flush Sodium Chloride () 250 mls @ 15 mls/hr IV .[id number] PRN PRN Reason: Additional IVPB Infusion Last Admin: 08/29/20 14:30 Dose: 15 mls/hr Documented by: Potassium Chloride () 10 meq in 100 mls @ 100 mls/hr IV BOLUS Q1H [facility] Stop: 08/29/20 17:29 Last Admin: 08/29/20 15:43 Dose: 80 mls/hr Documented by: Ibuprofen (Ibuprofen 400 Mg Tablet) 800 mg PO Q6H PRN PRN PRN Reason: Pain 1-10 or Fever Last Admin: 08/28/20 21:06 Dose: 800 mg Documented by: Lisinopril (Lisinopril 10 Mg Tablet) 10 mg PO DAILY [facility] Last Admin: 08/29/20 09:05 Dose: 10 mg Documented by: Lorazepam (Lorazepam 2 Mg/Ml Syringe) 0.5 mg IV Q6H PRN PRN PRN Reason: ANXIETY/AGITATION Last Admin: 08/29/20 12:52 Dose: 0.5 mg Documented by: Melatonin (Melatonin 3 Mg Tablet) 3 mg PO QHS PRN PRN PRN Reason: INSOMNIA Last Admin: 08/28/20 21:06 Dose: 3 mg Documented by: Miscellaneous Information (Inhaler, Assist Devices 1 Each Spacer) 1 each INHALATION PRN PRN PRN Reason: WITH ALBUTEROL MDI Montelukast Sodium (Montelukast 10 Mg Tablet) 10 mg PO QHS [facility] Last Admin: 08/28/20 21:02 Dose: 10 mg Documented by: Ondansetron HCl (Ondansetron 4 Mg/2 Ml Vial) 4 mg IV Q8H PRN PRN PRN Reason: NAUSEA/VOMITING Last Admin: 08/27/20 00:42 Dose: 4 mg Documented by: Pantoprazole Sodium (Pantoprazole Sodium 20 Mg Tablet) 20 mg PO DAILY [facility] Last Admin: 08/29/20 09:05 Dose: 20 mg Documented by: Sodium Chloride (0.9% Saline Lock 10 Ml Syringe) 10 - 40 ml IV UD PRN PRN Reason: SALINE FLUSH Last Admin: 08/29/20 14:30 Dose: 10 ml Documented by: Throat Lozenges (Benzocaine/Menthol 1 Lozenge) 1 lozenge MUCOUS MEM Q2H PRN PRN PRN Reason: SORE THROAT Medical Necessity - Tobacco Use Smoking Status: Former smoker Tobacco Use: Cigarettes, Chew Route of nutrition/ use of supplements: [] Nutritional Intake: [] IV Site: [] Alaniz Catheter: [] - Assessment/Plan Antibiotics: [] Assessment/Plan: [] Active and Suspected Problems (Last Reviewed 10/31/20 @ 14:[address] David Crow, DO) COVID-19 (Acute) Hypoxia (Acute) On dex. Got plasma 08/25. Started remdesivir 08/25, but had rise in ALT to 306, so stopped the following day. On 70% bipap. CT neg for PE. On lovenox 30mg bid. Feeling better but still high O2. Improving with lasix. Will follow
--- NOTE | 2020-08-29 17:33 | PCM.HOSP.N ---
Hospitalist Note I evaluated the patient this afternoon, he is on BiPAP currently with an FiO2 of 0.9, patient appears comfortable at this time but his sats are only 90. I think for better care overall and closer observation, the patient should be transferred to the ICU, I talked with pulmonary medicine about this transfer and I also talked with the patient and the patient's son to let them know why I was transferring him into the ICU. We will continue with the BiPAP rather than intubate the patient as he is not in any visible distress at this time.
[2020-08-29] MEDS: Montelukast 10 MG Tablet PO (20:05)
[2020-08-30] VITALS (32 sets, daily range): BP systolic 95–133; BP diastolic 61–98; PULSE 72–108; RESP 15–35; TEMP 36.2–37.1; O2SAT 89–100
--- NOTE | 2020-08-30 05:41 | PCM.PN.INT ---
Subjective: The patient was seen and examined at the bedside this morning. Events from the last 24 hours have been reviewed. The patient is currently afebrile, hemodynamically stable and maintaining appropriate oxygen saturations on BiPAP with an FiO2 requirement of 95%. The patient was transferred from the progressive care unit to the ICU last evening over concerns that he could potentially decompensate clinically given his high oxygen requirement. The patient is currently documented to be overall net +5.9 L for the hospital admission. The patient has already received convalescent plasma and remains on Decadron daily as well. Although the patient has remained stable from a nursing standpoint overnight, he readily desaturates with even minimal amounts of physical exertion. Objective: The patient's most recent lab work, culture data and imaging studies have all been personally reviewed. Surface echocardiogram from April 2019 revealed evidence of stage I diastolic dysfunction. Coronavirus PCR was positive on August 19. Strep and urine Legionella antigens were negative. Blood cultures have shown no growth to date. General: Alert, Cooperative, - - Continues to tolerate BiPAP HEENT: Atraumatic, Normocephalic Oral: Dry Mucosa Neck: Supple, No Nodes, Trachea Midline Lungs: Diminished, Tachypneic Cardiovascular: Regular rate, Regular Rhythm Abdomen: Bowel Sounds Present, Soft, Non Tender Extremities: No clubbing, No cyanosis, No edema Skin: No breakdown Musculoskeletal: No Tenderness to Palpation of Joints or Extremities Lymphatic: No Cervical, Supraclavicular, or Inguinal Adenopathy Neurological: Neuro grossly intact Psych/Mental Status: Normal Affect, Appropriate Vital Signs Temp Pulse Resp BP Pulse Ox 98.4 F 108 H 35 H 119/64 91 08/30/20 04:00 08/30/20 05:24 08/30/20 05:24 08/30/20 05:00 08/30/20 05:24 Oxygen Flow Rate (L/min) 70 Oxygen Delivery Method Bi-pap Weight: 176 lb 9.444 oz Body Mass Index (BMI) 27.1 Intake and Output for Last 24 Hours 08/28/20 08/29/20 08/30/20 23:59 23:59 23:59 Intake Total 1977.5 / 1977.5 1254.17 / 1254.17 360 / 360 Output Total 2650 / 2650 2875 / 3000 325 / 325 Balance -672.5 / -672.5 -1620.83 / -1745.83 35 / 35 Labs (Last 48 Hours) 08/28/20 08/28/20 08/28/20 05:15 05:15 05:15 WBC 14.2 H RBC 3.83 L Hgb 11.9 L Hct 37.4 L MCV 97.7 H MCH 31.1 MCHC 31.8 L RDW Std Deviation 50.9 H RDW Coeff of Renzo 14.2 Plt Count 356 MPV 11.6 Sodium 144 Potassium 4.1 Chloride 111 H Carbon Dioxide 26.0 Anion Gap 7 BUN 26 H Creatinine 0.85 Estim Creat Clear Calc 87.80 Est GFR (MDRD) Af Amer 117 Est GFR (MDRD) Non-Af 97 BUN/Creatinine Ratio 30.7 H Glucose 85 Calcium 8.0 L Total Bilirubin 0.70 AST 100 H ALT 169 H Alkaline Phosphatase 213 H B-Natriuretic Peptide 46.7 Total Protein 6.9 Albumin 2.2 L Globulin 4.7 H Albumin/Globulin Ratio 0.5 L 08/29/20 08/29/20 05:30 05:30 WBC 14.3 H RBC 4.17 L Hgb 13.0 Hct 39.5 L MCV 94.7 H MCH 31.2 MCHC 32.9 RDW Std Deviation 48.8 H RDW Coeff of Renzo 14.1 Plt Count 394 MPV 11.5 Sodium 142 Potassium 3.5 Chloride 106 Carbon Dioxide 27.0 Anion Gap 9 BUN 29 H Creatinine 0.98 Estim Creat Clear Calc 76.15 Est GFR (MDRD) Af Amer 99 Est GFR (MDRD) Non-Af 81 BUN/Creatinine Ratio 29.5 H Glucose 77 Calcium 8.7 Total Bilirubin AST ALT Alkaline Phosphatase B-Natriuretic Peptide Total Protein Albumin Globulin Albumin/Globulin Ratio Microbiology 08/23/20 14:03 Blood Culture (Wb) - Right Hand Blood Culture - Final No growth in 5 days. 08/23/20 13:07 Blood Culture (Wb) - Anticubital Left Blood Culture - Final No growth in 5 days. Clinical Impression(s) from Imaging Studies Chest X-Ray 08/23/20 13:06 IMPRESSION: 1. Hypoinflation with multilobar interstitial and groundglass opacities. Differential considerations include pulmonary edema, pneumonia (including typical and atypical varieties) and development of interstitial fibrotic lung disease. Electronically Signed: Prakash Addison MD ([place]) at 13:33 EDT , Service support , Chest CTA 08/24/20 14:52 IMPRESSION: 1. No central or segmental pulmonary embolism. 2. Multilobar peripheral dominant groundglass opacities with mild interlobular septal thickening and areas of groundglass opacity. Commonly reported imaging features of COVID-19 pneumonia. Other processes such as influenza pneumonia organizing pneumonia, that can be seen with drug toxicity and connective tissue disease can cause a similar imaging pattern. Electronically Signed: Prakash Addison MD ([place]) at 15:58 EST , Service support , Chest X-Ray 08/28/20 13:33 IMPRESSION: Progressive infiltrate in the right hemithorax as well as at the left lung base. Electronically Signed: Mart Navarro, at 14:23 EST , Service support , Medical Necessity - Tobacco Use Smoking Status: Former smoker Tobacco Use: Cigarettes, Chew Assessment/Plan All Active Problems (Last Reviewed 08/23/20 @ 14:[address] David Crwo, DO) COVID-19 (Acute) Hypoxia (Acute) RECOMMENDATIONS: 1. Continue current BiPAP support and wean FiO2 to maintain oxygen saturations at or above 90%. 2. If no meaningful clinical improvement is noted in the next 24 hours, may need to consider intubation tomorrow. 3. Continue Decadron 6 mg daily to complete 10 days of treatment. 4. Continue diuretic regimen as tolerated by hemodynamics and renal function. Lasix regimen will be decreased to once daily. 5. Continue twice daily Lovenox. IMPRESSIONS: 1. Acute hypoxemic respiratory failure secondary to COVID-19 pneumonia The patient initially presented to the hospital with Covid-like symptoms that began towards the end of July. The patient thus far has received convalescent plasma and was initially started on remdesivir. However, the remdesivir had to be discontinued due to worsening liver function. The patient remains on scheduled Decadron 6 mg daily. His oxygenation status has slowly declined over the course of the hospitalization. The patient has been maintained on gentle diuretic therapy as tolerated by hemodynamics and renal function as well. He remains essentially BiPAP dependent at the present time. We will plan to continue to wean FiO2 to maintain saturations at or above 90%. If the patient does not begin to improve clinically over the next 24 hours, may need to consider intubation. 2. Hypertension/hyperlipidemia/GERD Complicates care, management, recovery and prognosis. Continue home medications as indicated. TIME: 35 minutes of critical care time, independent of procedures, was spent addressing the patient's acute hypoxemic respiratory failure, COVID-19 pneumonia, review of all data and collaboration with the care team. ([id number]) [phone]: [id number] Critical care first hour
[2020-08-30 05:45] LABS: Hematocrit 40.8 % (40-54); Hemoglobin 13.5 g/dL (13.0-16.5); Mean Corp Hgb Conc 33.1 g/dL (32-36); Mean Corpuscular Hgb 31.2 pg (27.0-32.0); Mean Corpuscular Volume 94.2 fL (80-94); Mean Platelet Vol. 11.2 fl (6.2-12.0); Platelet Count 418 K/mm3 (150-450); RBC Distribution Width CV 14.3 % (11.6-14.6); RBC Distribution Width SD 49.6 fl (35.1-43.9); Red Blood Count 4.33 M/mm3 (4.6-6.2); White Blood Count 16.4 K/mm3 (4.4-11.0)
[2020-08-30 06:27] LABS: Anion Gap 7 (5-15); BUN 31 mg/dL (7-18); BUN/Creat Ratio 26.1 RATIO (10-20); Calcium,Total 9.7 mg/dL (8.5-10.1); Chloride 106 mmol/L (98-107); Creatinine, Serum 1.19 mg/dL (0.70-1.30); EST Glomerular Filtration Rate 65 mL/min (>60); Est Glom Filt Rate - Afr Amer 79 mL/min (>60); Estimated Creatinine Clearance 62.71 ml/min; Glucose 105 mg/dL (74-106); Potassium 4.1 mmol/L (3.5-5.1); Sodium Level 139 mmol/L (136-145)
--- NOTE | 2020-08-30 09:42 | CM.UR ---
Participated in interdisciplinary rounds this am. Patient is bipap dependent. Unsuccessful weaning attempt last evening. Plan is TBD. Case management will continue to follow. Triston Anne RN, CCM.
[2020-08-30] MEDS: Pantoprazole Sodium 20 MG Tablet PO (10:36)
[2020-08-30] MEDS: Aspirin E.C. 81 MG Tablet PO (10:37)
[2020-08-30] MEDS: dexAMETHasone 4 MG Tablet 6 MG PO (10:37)
[2020-08-30] MEDS: 0.9% Saline Lock 10 ML Syringe IV ×2 (10:38→21:59)
[2020-08-30] MEDS: Lisinopril 10 MG Tablet PO (10:52)
[2020-08-30] MEDS: LORazepam 2 MG/ML Syringe 0.5 MG IV (10:53)
[2020-08-30] MEDS: Furosemide 40 MG/4 ML Vial IV (10:53)
--- NOTE | 2020-08-30 12:31 | PN_ITS ---
Patient Problems: Active and Suspected Problems (Last Reviewed 08/23/20 @ 14:[address] David Crow, DO) COVID-19 (Acute) Hypoxia (Acute) Subjective: Patient was seen and examined today in ICU, he is on continuous BiPAP and holding his oxygen saturations at the moment. Patient does not complain of any chest pain, chills or fever, he does complain of extreme dryness of his mouth. Objective: General: Alert, Oriented x3, Cooperative, No apparent distress, Well developed, Well nourished HEENT: Atraumatic, PERRLA, EOMI, Normocephalic Oral: Moist Mucosa Neck: Supple, No JVD, Trachea Midline, Thyroid Normal Size and Texture Lungs: Normal air movement, No rhonchi, No wheeze, Rales - Scattered inspiratory rales are noted bilaterally Cardiovascular: Regular rate, Regular Rhythm, Normal S1, Normal S2, No murmurs Abdomen: Bowel Sounds Present, Soft, Non Tender, Non-Distended Extremities: No clubbing, No cyanosis, No edema, Capillary Refill Less than 3 Seconds Skin: No rashes, No breakdown Musculoskeletal: No Tenderness to Palpation of Joints or Extremities Neurological: Cranial nerves II-XII grossly intact, Neuro grossly intact, Sensory exam intact to light touch and pain, Coordination normal Psych/Mental Status: Normal Affect, Appropriate, Alert and oriented to time, place, person, mood and affect - Physical Exam Vitals/I&O's: Vital Signs Temp Pulse Resp BP Pulse Ox 98.4 F 96 24 H 121/76 H 94 08/30/20 04:00 08/30/20 11:00 08/30/20 11:00 08/30/20 11:00 08/30/20 11:00 Oxygen Flow Rate (L/min) 70 Oxygen Delivery Method Bi-pap Weight: 80.1 kg Body Mass Index (BMI) 27.1 Intake and Output for Last 24 Hours 08/28/20 08/29/20 08/30/20 23:59 23:59 23:59 Intake Total 1977.5 / 1976.5 1254.17 / 1254.17 580 / 580 Output Total 2650 / 2650 2875 / 3000 425 / 425 Balance -672.5 / -672.5 -1620.83 / -1745.83 155 / 155 Microbiology Past 72 Hours 08/23/20 14:03 Blood Culture (Wb) - Right Hand Blood Culture - Final No growth in 5 days. 08/23/20 13:07 Blood Culture (Wb) - Anticubital Left Blood Culture - Final No growth in 5 days. Laboratory Results 08/30/20 05:35: WBC 16.4 H, RBC 4.33 L, Hgb 13.5, Hct 40.8, MCV 94.2 H, MCH 31.2, MCHC 33.1, RDW Std Deviation 49.6 H, RDW Coeff of Rezno 14.3, Plt Count 418, MPV 11.2 08/30/20 05:35: Sodium 139, Potassium 4.1, Chloride 106, Carbon Dioxide 26.0, Anion Gap 7, BUN 31 H, Creatinine 1.19, Estim Creat Clear Calc 62.71, Est GFR (MDRD) Af Amer 79, Est GFR (MDRD) Non-Af 65, BUN/Creatinine Ratio 26.1 H, Glucose 105, Calcium 9.7 Current Medications Acetaminophen (Acetaminophen 325 Mg Tablet) 650 mg PO Q6H PRN PRN PRN Reason: Pain Score 1-10/Temp > 100.7 F Last Admin: 08/25/20 16:34 Dose: 650 mg Documented by: Albuterol Sulfate (Albuterol Sulfate 18 Gm Inhaler (200 Puffs)) 2 puff IH Q4H PRN PRN PRN Reason: SOB or wheezing Last Admin: 08/29/20 11:47 Dose: 2 puff Documented by: Aspirin (Aspirin E.C. 81 Mg Tablet) 81 mg PO DAILY [facility] Last Admin: 08/30/20 10:37 Dose: 81 mg Documented by: Atorvastatin Calcium (Atorvastatin Calcium 40 Mg Tablet) 40 mg PO QHS [facility] Last Admin: 08/29/20 20:15 Dose: Not Given Documented by: Dexamethasone (Dexamethasone 4 Mg Tablet) 6 mg PO QAM [facility] Stop: 09/03/20 10:01 Last Admin: 08/30/20 10:37 Dose: 6 mg Documented by: Enoxaparin Sodium (Enoxaparin 30 Mg/0.3 Ml Syringe) 30 mg SC BID [facility] Last Admin: 08/29/20 19:50 Dose: 30 mg Documented by: Fluticasone Propionate (Fluticasone 0.05% 1 [place] Nasal.Sry) 1 spray NASAL DAILY PRN PRN PRN Reason: congestion Furosemide (Furosemide 40 Mg/4 Ml Vial) 40 mg IV DAILY [facility] Last Admin: 08/30/20 10:53 Dose: 40 mg Documented by: Guaifenesin (Guaifenesin 10 Ml Udc (200mg/10ml)) 20 ml PO Q4H PRN PRN PRN Reason: COUGH Last Admin: 08/28/20 05:38 Dose: 20 ml Documented by: Sodium Chloride () 250 mls @ 15 mls/hr IV .[id number] PRN PRN Reason: Saline Flush Sodium Chloride () 250 mls @ 15 mls/hr IV .[id number] PRN PRN Reason: Additional IVPB Infusion Last Infusion: 08/29/20 20:36 Dose: 0 mls/hr Documented by: Ibuprofen (Ibuprofen 400 Mg Tablet) 800 mg PO Q6H PRN PRN PRN Reason: Pain 1-10 or Fever Last Admin: 08/28/20 21:06 Dose: 800 mg Documented by: Lisinopril (Lisinopril 10 Mg Tablet) 10 mg PO DAILY [facility] Last Admin: 08/30/20 10:52 Dose: 10 mg Documented by: Lorazepam (Lorazepam 2 Mg/Ml Syringe) 0.5 mg IV Q6H PRN PRN PRN Reason: ANXIETY/AGITATION Last Admin: 08/30/20 10:53 Dose: 0.5 mg Documented by: Melatonin (Melatonin 3 Mg Tablet) 3 mg PO QHS PRN PRN PRN Reason: INSOMNIA Last Admin: 08/28/20 21:06 Dose: 3 mg Documented by: Miscellaneous Information (Inhaler, Assist Devices 1 Each Spacer) 1 each INHALATION PRN PRN PRN Reason: WITH ALBUTEROL MDI Montelukast Sodium (Montelukast 10 Mg Tablet) 10 mg PO QHS [facility] Last Admin: 08/29/20 20:05 Dose: 10 mg Documented by: Ondansetron HCl (Ondansetron 4 Mg/2 Ml Vial) 4 mg IV Q8H PRN PRN PRN Reason: NAUSEA/VOMITING Last Admin: 08/27/20 00:42 Dose: 4 mg Documented by: Pantoprazole Sodium (Pantoprazole Sodium 20 Mg Tablet) 20 mg PO DAILY [facility] Last Admin: 08/30/20 10:36 Dose: 20 mg Documented by: Sodium Chloride (0.9% Saline Lock 10 Ml Syringe) 10 - 40 ml IV UD PRN PRN Reason: SALINE FLUSH Last Admin: 08/30/20 10:38 Dose: 10 ml Documented by: Throat Lozenges (Benzocaine/Menthol 1 Lozenge) 1 lozenge MUCOUS MEM Q2H PRN PRN PRN Reason: SORE THROAT Medical Necessity - Tobacco Use Smoking Status: Former smoker Tobacco Use: Cigarettes, Chew Assessment/Plan All Active Problems (Last Reviewed 08/23/20 @ 14:[address] David Crow, DO) COVID-19 (Acute) Hypoxia (Acute) #1 acute COVID-19 multi lobar pneumonia-continue present treatment per infectious diseases, patient is no longer on remdesivir, he remains on dexamethasone. #2 acute hypoxic respiratory failure-continue to wean oxygen as tolerated, patient is currently on high flow oxygen/BiPAP, patient will not be able to be discharged until his oxygen requirement is decreased, patient is being followed by pulmonary medicine. For now patient is maintaining his oxygen saturation on continuous BiPAP, he is obviously in danger of decompensating however, patient is a full code. #3 essential hypertension #4 hyperlipidemia Inpatient E&M: 62778 Subs Hosp L2
[2020-08-30] MEDS: Enoxaparin 30 MG/0.3 ML Syringe SC ×2 (13:00→21:52)
--- NOTE | 2020-08-30 20:25 | NURSING ---
Pt given mouth moisturizer as BiPAP removed; pt able to maintain O2 level >90% for 20sec and then drops to 71%. BiPAP replaced and pt recovers quickly.
--- NOTE | 2020-08-30 21:52 | NURSING ---
Pt allowed to take sips of water in order to take HS meds; bites of applesauce given to ease swallowing. Pt's oxygen saturation dropped quickly to lower 60s%.Pt encouraged to finish swallowing what was in his mouth, stating that he felt just fine. Pt's BiPAP replaced and fitted, pt denies feeling bad. Pt educated on potential for tissue harm/trauma caused by low oxygen saturation regardless of feeling bad or not. Pt recovered quickly.
[2020-08-30] MEDS: MELATONIN 3 MG TABLET PO (21:53)
[2020-08-30] MEDS: Atorvastatin Calcium 40 MG Tablet PO (21:53)
[2020-08-30] MEDS: Montelukast 10 MG Tablet PO (21:53)
[2020-08-30] MEDS: Ondansetron 4 MG/2 ML Vial IV (21:56)
[2020-08-31] VITALS (35 sets, daily range): BP systolic 66–140; BP diastolic 45–92; PULSE 45–96; RESP 15–33; TEMP 36.1–36.6; O2SAT 87–97
[2020-08-31] MEDS: 0.9% Saline Lock 10 ML Syringe IV ×2 (03:11→08:36)
[2020-08-31] MEDS: LORazepam 2 MG/ML Syringe 0.5 MG IV (03:11)
[2020-08-31 03:40] LABS: Anion Gap 8 (5-15); BUN 43 mg/dL (7-18); BUN/Creat Ratio 42.6 RATIO (10-20); Calcium,Total 9.2 mg/dL (8.5-10.1); Chloride 105 mmol/L (98-107); Creatinine, Serum 1.01 mg/dL (0.70-1.30); EST Glomerular Filtration Rate 79 mL/min (>60); Est Glom Filt Rate - Afr Amer 95 mL/min (>60); Estimated Creatinine Clearance 73.89 ml/min; Glucose 141 mg/dL (74-106); Potassium 4.1 mmol/L (3.5-5.1); Sodium Level 137 mmol/L (136-145)
--- NOTE | 2020-08-31 05:56 | PCM.PN.INT ---
Subjective: The patient was seen and examined at the bedside this morning. Events from the last 24 hours have been reviewed. The patient is currently afebrile, hemodynamically stable and maintaining appropriate oxygen saturations on BiPAP with an FiO2 requirement of 95%. The patient has already received convalescent plasma and remains on Decadron daily as well. The patient has been maintained on Lasix and is currently documented to be overall net +5.5 L for the hospital admission. The patient has essentially been BiPAP dependent now for multiple days and decompensates rapidly with even small breaks from noninvasive positive pressure ventilatory support. The patient continues to have a great deal of anxiety. I explained to the patient this morning that given his continued BiPAP dependence over the last several days that it would be appropriate to proceed with intubation at this time. Nevertheless, the patient is rather insistent that we wait an additional day and reevaluate his need for intubation tomorrow. He stated that he is agreeable to endotracheal intubation tomorrow if he does not improve from an oxygenation perspective over the next 24 hours. Objective: The patient's most recent lab work, culture data and imaging studies have all been personally reviewed. Surface echocardiogram from April 2019 revealed evidence of stage I diastolic dysfunction. Coronavirus PCR was positive on August 19. Strep and urine Legionella antigens were negative. Blood cultures have shown no growth to date. General: Alert, Cooperative, - - Tolerating BiPAP. HEENT: Atraumatic, Normocephalic Oral: Dry Mucosa Neck: Supple, No Nodes, Trachea Midline Lungs: No rhonchi, No wheeze, No rales, Diminished, Tachypneic Cardiovascular: Normal S1, Normal S2, Tachycardic Abdomen: Bowel Sounds Present, Soft, Non Tender Extremities: No clubbing, No cyanosis, No edema Skin: No breakdown Musculoskeletal: No Tenderness to Palpation of Joints or Extremities, No Muscle Wasting Lymphatic: No Cervical, Supraclavicular, or Inguinal Adenopathy Neurological: Neuro grossly intact Psych/Mental Status: Anxious Vital Signs Temp Pulse Resp BP Pulse Ox 97.9 F 83 27 H 138/88 H 94 08/31/20 04:00 08/31/20 05:00 08/31/20 05:00 08/31/20 05:00 08/31/20 05:00 Oxygen Flow Rate (L/min) 70 Oxygen Delivery Method Bi-pap Weight: 173 lb 1.006 oz Body Mass Index (BMI) 27.1 Intake and Output for Last 24 Hours 08/29/20 08/30/20 08/31/20 23:59 23:59 23:59 Intake Total 1254.17 / 1254.17 680 / 780 100 / 100 Output Total 2875 / 3000 525 / 850 575 / 575 Balance -1620.83 / -1745.83 155 / -70 -475 / -475 Labs (Last 48 Hours) 08/29/20 08/29/20 08/30/20 05:30 05:30 05:35 WBC 14.3 H 16.4 H RBC 4.17 L 4.33 L Hgb 13.0 13.5 Hct 39.5 L 40.8 MCV 94.7 H 94.2 H MCH 31.2 31.2 MCHC 32.9 33.1 RDW Std Deviation 48.8 H 49.6 H RDW Coeff of Renzo 14.1 14.3 Plt Count 394 418 MPV 11.5 11.2 Sodium 142 Potassium 3.5 Chloride 106 Carbon Dioxide 27.0 Anion Gap 9 BUN 29 H Creatinine 0.98 Estim Creat Clear Calc 76.15 Est GFR (MDRD) Af Amer 99 Est GFR (MDRD) Non-Af 81 BUN/Creatinine Ratio 29.5 H Glucose 77 Calcium 8.7 08/30/20 08/31/20 05:35 03:05 WBC RBC Hgb Hct MCV MCH MCHC RDW Std Deviation RDW Coeff of Renzo Plt Count MPV Sodium 139 137 Potassium 4.1 4.1 Chloride 106 105 Carbon Dioxide 26.0 24.0 Anion Gap 7 8 BUN 31 H 43 H Creatinine 1.19 1.01 Estim Creat Clear Calc 62.71 73.89 Est GFR (MDRD) Af Amer 79 95 Est GFR (MDRD) Non-Af 65 79 BUN/Creatinine Ratio 26.1 H 42.6 H Glucose 105 141 H Calcium 9.7 9.2 Clinical Impression(s) from Imaging Studies Chest X-Ray 08/23/20 13:06 IMPRESSION: 1. Hypoinflation with multilobar interstitial and groundglass opacities. Differential considerations include pulmonary edema, pneumonia (including typical and atypical varieties) and development of interstitial fibrotic lung disease. Electronically Signed: Prakash Addison MD ([place]) at 13:33 EDT , Service support , Chest CTA 08/24/20 14:52 IMPRESSION: 1. No central or segmental pulmonary embolism. 2. Multilobar peripheral dominant groundglass opacities with mild interlobular septal thickening and areas of groundglass opacity. Commonly reported imaging features of COVID-19 pneumonia. Other processes such as influenza pneumonia organizing pneumonia, that can be seen with drug toxicity and connective tissue disease can cause a similar imaging pattern. Electronically Signed: Prakash Addison MD ([place]) at 15:58 EST , Service support , Chest X-Ray 08/28/20 13:33 IMPRESSION: Progressive infiltrate in the right hemithorax as well as at the left lung base. Electronically Signed: Mart Navarro, at 14:23 EST , Service support , Medical Necessity - Tobacco Use Smoking Status: Former smoker Tobacco Use: Cigarettes, Chew Assessment/Plan All Active Problems (Last Reviewed 08/23/20 @ 14:[address] David Crow, DO) COVID-19 (Acute) Hypoxia (Acute) RECOMMENDATIONS: 1. Continue current BiPAP support and wean FiO2 to maintain oxygen saturations at or above 90%. 2. If no meaningful clinical improvement is noted in the next 24 hours, may need to consider intubation tomorrow. 3. Continue Decadron 6 mg daily to complete 10 days of treatment. 4. Continue diuretic regimen as tolerated by hemodynamics and renal function. 5. Continue twice daily Lovenox. 6. Start Precedex given continued anxiety and BiPAP dependence. IMPRESSIONS: 1. Acute hypoxemic respiratory failure secondary to COVID-19 pneumonia The patient initially presented to the hospital with Covid-like symptoms that began towards the end of July. The patient thus far has received convalescent plasma and was initially started on remdesivir. However, the remdesivir had to be discontinued due to worsening liver function. The patient remains on scheduled Decadron 6 mg daily. His oxygenation status has slowly declined over the course of the hospitalization. The patient has been maintained on gentle diuretic therapy as tolerated by hemodynamics and renal function as well. He remains essentially BiPAP dependent at the present time. We will plan to continue to wean FiO2 to maintain saturations at or above 90%. If the patient does not begin to improve clinically over the next 24 hours, may need to consider intubation. Precedex will be started today due to ongoing anxiety and BiPAP dependency. 2. Hypertension/hyperlipidemia/GERD Complicates care, management, recovery and prognosis. Continue home medications as indicated. TIME: 33 minutes of critical care time, independent of procedures, was spent addressing the patient's acute hypoxemic respiratory failure, COVID-19 pneumonia, review of all data and collaboration with the care team. ([id number]) [phone]: [id number] Critical care first hour
[2020-08-31] MEDS: Aspirin E.C. 81 MG Tablet PO (08:35)
[2020-08-31] MEDS: Lisinopril 10 MG Tablet PO (08:35)
[2020-08-31] MEDS: dexAMETHasone 4 MG Tablet 6 MG PO (08:35)
[2020-08-31] MEDS: Enoxaparin 30 MG/0.3 ML Syringe SC ×2 (08:35→21:44)
[2020-08-31] MEDS: Furosemide 40 MG/4 ML Vial IV (08:35)
[2020-08-31] MEDS: Pantoprazole Sodium 20 MG Tablet PO (08:35)
--- NOTE | 2020-08-31 09:13 | PCM.PROGNOTE ---
Patient Problems: Active and Suspected Problems (Last Reviewed 08/23/20 @ 14:[address] David Crow, DO) COVID-19 (Acute) Hypoxia (Acute) Subjective: Patient was seen and examined in ICU today, he remains on BiPAP with high oxygen requirement. Patient does not complain of any fevers or chills to this examiner, he has no complaints of chest pain Objective: General: Alert, Oriented x3, Cooperative, No apparent distress, Well developed, Well nourished HEENT: Atraumatic, PERRLA, EOMI, Normocephalic Oral: Moist Mucosa Neck: Supple, No JVD, Trachea Midline, Thyroid Normal Size and Texture Lungs: Normal air movement, No rhonchi, No wheeze, Rales - Scattered inspiratory rales are noted bilaterally Cardiovascular: Regular rate, Regular Rhythm, Normal S1, Normal S2, No murmurs Abdomen: Bowel Sounds Present, Soft, Non Tender, Non-Distended Extremities: No clubbing, No cyanosis, No edema, Capillary Refill Less than 3 Seconds Skin: No rashes, No breakdown Musculoskeletal: No Tenderness to Palpation of Joints or Extremities Neurological: Cranial nerves II-XII grossly intact, Neuro grossly intact, Sensory exam intact to light touch and pain, Coordination normal Psych/Mental Status: Normal Affect, Appropriate, Alert and oriented to time, place, person, mood and affect - Physical Exam Vitals/I&O's: Vital Signs Temp Pulse Resp BP Pulse Ox 97.9 F 89 32 H 121/86 H 93 08/31/20 04:00 08/31/20 08:37 08/31/20 08:37 08/31/20 06:00 08/31/20 08:37 Oxygen Flow Rate (L/min) 70 Oxygen Delivery Method Bi-pap Weight: 78.5 kg Body Mass Index (BMI) 27.1 Intake and Output for Last 24 Hours 08/29/20 08/30/20 08/31/20 23:59 23:59 23:59 Intake Total 1254.17 / 1254.17 680 / 780 100 / 100 Output Total 2875 / 3000 525 / 850 575 / 575 Balance -1620.83 / -1745.83 155 / -70 -475 / -475 Microbiology Past 72 Hours 08/23/20 14:03 Blood Culture (Wb) - Right Hand Blood Culture - Final No growth in 5 days. 08/23/20 13:07 Blood Culture (Wb) - Anticubital Left Blood Culture - Final No growth in 5 days. Laboratory Results 08/31/20 03:05: Sodium 137, Potassium 4.1, Chloride 105, Carbon Dioxide 24.0, Anion Gap 8, BUN 43 H, Creatinine 1.01, Estim Creat Clear Calc 73.89, Est GFR (MDRD) Af Amer 95, Est GFR (MDRD) Non-Af 79, BUN/Creatinine Ratio 42.6 H, Glucose 141 H, Calcium 9.2 Current Medications Acetaminophen (Acetaminophen 325 Mg Tablet) 650 mg PO Q6H PRN PRN PRN Reason: Pain Score 1-10/Temp > 100.7 F Last Admin: 08/25/20 16:34 Dose: 650 mg Documented by: Albuterol Sulfate (Albuterol Sulfate 18 Gm Inhaler (200 Puffs)) 2 puff IH Q4H PRN PRN PRN Reason: SOB or wheezing Last Admin: 08/29/20 11:47 Dose: 2 puff Documented by: Aspirin (Aspirin E.C. 81 Mg Tablet) 81 mg PO DAILY [facility] Last Admin: 08/31/20 08:35 Dose: 81 mg Documented by: Atorvastatin Calcium (Atorvastatin Calcium 40 Mg Tablet) 40 mg PO QHS [facility] Last Admin: 08/30/20 21:53 Dose: 40 mg Documented by: Dexamethasone (Dexamethasone 4 Mg Tablet) 6 mg PO QAM [facility] Stop: 09/03/20 10:01 Last Admin: 08/31/20 08:35 Dose: 6 mg Documented by: Enoxaparin Sodium (Enoxaparin 30 Mg/0.3 Ml Syringe) 30 mg SC BID [facility] Last Admin: 08/31/20 08:35 Dose: 30 mg Documented by: Fluticasone Propionate (Fluticasone 0.05% 1 [place] Nasal.Sry) 1 spray NASAL DAILY PRN PRN PRN Reason: congestion Furosemide (Furosemide 40 Mg/4 Ml Vial) 40 mg IV DAILY [facility] Last Admin: 08/31/20 08:35 Dose: 40 mg Documented by: Guaifenesin (Guaifenesin 10 Ml Udc (200mg/10ml)) 20 ml PO Q4H PRN PRN PRN Reason: COUGH Last Admin: 08/28/20 05:38 Dose: 20 ml Documented by: Sodium Chloride () 250 mls @ 15 mls/hr IV .[id number] PRN PRN Reason: Saline Flush Sodium Chloride () 250 mls @ 15 mls/hr IV .[id number] PRN PRN Reason: Additional IVPB Infusion Last Infusion: 08/29/20 20:36 Dose: 0 mls/hr Documented by: Dexmedetomidine HCl 400 mcg/ (Sodium Chloride) 100 mls @ 9.813 mls/hr CONT INF .[id number] [facility]; Protocol Ibuprofen (Ibuprofen 400 Mg Tablet) 800 mg PO Q6H PRN PRN PRN Reason: Pain 1-10 or Fever Last Admin: 08/28/20 21:06 Dose: 800 mg Documented by: Lisinopril (Lisinopril 10 Mg Tablet) 10 mg PO DAILY [facility] Last Admin: 08/31/20 08:35 Dose: 10 mg Documented by: Lorazepam (Lorazepam 2 Mg/Ml Syringe) 0.5 mg IV Q6H PRN PRN PRN Reason: ANXIETY/AGITATION Last Admin: 08/31/20 03:11 Dose: 0.5 mg Documented by: Melatonin (Melatonin 3 Mg Tablet) 3 mg PO QHS PRN PRN PRN Reason: INSOMNIA Last Admin: 08/30/20 21:53 Dose: 3 mg Documented by: Miscellaneous Information (Inhaler, Assist Devices 1 Each Spacer) 1 each INHALATION PRN PRN PRN Reason: WITH ALBUTEROL MDI Montelukast Sodium (Montelukast 10 Mg Tablet) 10 mg PO QHS [facility] Last Admin: 08/30/20 21:53 Dose: 10 mg Documented by: Ondansetron HCl (Ondansetron 4 Mg/2 Ml Vial) 4 mg IV Q8H PRN PRN PRN Reason: NAUSEA/VOMITING Last Admin: 08/30/20 21:56 Dose: 4 mg Documented by: Pantoprazole Sodium (Pantoprazole Sodium 20 Mg Tablet) 20 mg PO DAILY [facility] Last Admin: 08/31/20 08:35 Dose: 20 mg Documented by: Sodium Chloride (0.9% Saline Lock 10 Ml Syringe) 10 - 40 ml IV UD PRN PRN Reason: SALINE FLUSH Last Admin: 08/31/20 08:36 Dose: 10 ml Documented by: Throat Lozenges (Benzocaine/Menthol 1 Lozenge) 1 lozenge MUCOUS MEM Q2H PRN PRN PRN Reason: SORE THROAT Medical Necessity - Tobacco Use Smoking Status: Former smoker Tobacco Use: Cigarettes, Chew Assessment/Plan All Active Problems (Last Reviewed 08/23/20 @ 14:[address] David Crow, DO) COVID-19 (Acute) Hypoxia (Acute) #1 acute COVID-19 multi lobar pneumonia-continue present treatment per infectious diseases, patient is no longer on remdesivir, he remains on dexamethasone. #2 acute hypoxic respiratory failure-continue to wean oxygen as tolerated, patient is currently on high flow oxygen/BiPAP, patient will not be able to be discharged until his oxygen requirement is decreased, patient is being followed by pulmonary medicine. For now patient is maintaining his oxygen saturation on continuous BiPAP, he is obviously in danger of decompensating however, patient is a full code. Patient's respiratory status is unchanged from yesterday. #3 essential hypertension #4 hyperlipidemia Inpatient E&M: 27746 Subs Hosp L2
[2020-08-31] MEDS: Dexmedetomidine 1,000 mcg in 0.9% NS 240 mL 21.6 MCG CONT INF (12:15)
[2020-08-31] MEDS: MELATONIN 3 MG TABLET PO (21:45)
[2020-08-31] MEDS: Montelukast 10 MG Tablet PO (21:45)
[2020-08-31] MEDS: Atorvastatin Calcium 40 MG Tablet PO (21:45)
--- NOTE | 2020-08-31 22:00 | NURSING ---
Pt's HR 39, BP 74/53, rechecked 66/49; Precedex placed on hold. Pt A+Ox3. Call light within reach.
--- NOTE | 2020-08-31 22:42 | NURSING ---
BiPAP pressure and FiO2 increased per RT. Mask changed back to smaller size d/t air leaks and pressure loss;pt begins to regain p.ox. Provided mouthcare as able.
[2020-09-01] VITALS (48 sets, daily range): BP systolic 60–187; BP diastolic 36–162; PULSE 47–120; RESP 12–29; TEMP 36.2–36.6; O2SAT 81–97
--- NOTE | 2020-09-01 02:10 | NURSING ---
Pt placed call light on to ask for water; explained to pt that each time BiPAP mask is removed he loses pressure support to lungs which causes his oxygen level to drop quickly. Pt reluctantly accepts information and then asks why does the oxygen keep dropping? Re-explained to pt about pressure and oxygen support while the lung tissue is trying to recover from viral infection.
--- NOTE | 2020-09-01 08:06 | PN_ITS ---
Patient Problems: Active and Suspected Problems (Last Reviewed 08/23/20 @ 14:[address] David Crow, DO) COVID-19 (Acute) Hypoxia (Acute) Subjective: Patient was seen and examined today, he is on continuous BiPAP still at 100% FiO2. Patient refused intubation yesterday according to critical care, he appears to be holding his own for now but his respiratory status is very tenuous. Patient has no complaints of any chest pain, fever, or chills. Objective: General: Alert, Oriented x3, Cooperative, No apparent distress, Well developed, Well nourished, patient appears moderately fatigued HEENT: Atraumatic, PERRLA, EOMI, Normocephalic Oral: Moist Mucosa Neck: Supple, No JVD, Trachea Midline, Thyroid Normal Size and Texture Lungs: Normal air movement, No rhonchi, No wheeze, Rales - Scattered inspiratory rales are noted bilaterally Cardiovascular: Regular rate, Regular Rhythm, Normal S1, Normal S2, No murmurs Abdomen: Bowel Sounds Present, Soft, Non Tender, Non-Distended Extremities: No clubbing, No cyanosis, No edema, Capillary Refill Less than 3 Seconds Skin: No rashes, No breakdown Musculoskeletal: No Tenderness to Palpation of Joints or Extremities Neurological: Cranial nerves II-XII grossly intact, Neuro grossly intact, Sensory exam intact to light touch and pain, Coordination normal Psych/Mental Status: Normal Affect, Appropriate, Alert and oriented to time, place, person, mood and affect - Physical Exam Vitals/I&O's: Vital Signs Temp Pulse Resp BP Pulse Ox 97.2 F L 53 L 20 H 92/58 L 93 09/01/20 04:00 09/01/20 07:00 09/01/20 07:00 09/01/20 07:00 09/01/20 07:00 Oxygen Flow Rate (L/min) 70 Oxygen Delivery Method Bi-pap Weight: 80.1 kg Body Mass Index (BMI) 27.1 Intake and Output for Last 24 Hours 08/30/20 08/31/20 09/01/20 23:59 23:59 23:59 Intake Total 680 / 780 825.60 / 825.60 0 / 0 Output Total 525 / 850 1065 / 1090 148 / 148 Balance 155 / -70 -239.40 / -264.40 -148 / -148 Current Medications Acetaminophen (Acetaminophen 325 Mg Tablet) 650 mg PO Q6H PRN PRN PRN Reason: Pain Score 1-10/Temp > 100.7 F Last Admin: 08/25/20 16:34 Dose: 650 mg Documented by: Albuterol Sulfate (Albuterol Sulfate 18 Gm Inhaler (200 Puffs)) 2 puff IH Q4H PRN PRN PRN Reason: SOB or wheezing Last Admin: 08/29/20 11:47 Dose: 2 puff Documented by: Aspirin (Aspirin E.C. 81 Mg Tablet) 81 mg PO DAILY [facility] Last Admin: 08/31/20 08:35 Dose: 81 mg Documented by: Atorvastatin Calcium (Atorvastatin Calcium 40 Mg Tablet) 40 mg PO QHS [facility] Last Admin: 08/31/20 21:45 Dose: 40 mg Documented by: Dexamethasone (Dexamethasone 4 Mg Tablet) 6 mg PO QAM [facility] Stop: 09/03/20 10:01 Last Admin: 08/31/20 08:35 Dose: 6 mg Documented by: Enoxaparin Sodium (Enoxaparin 30 Mg/0.3 Ml Syringe) 30 mg SC BID [facility] Last Admin: 08/31/20 21:44 Dose: 30 mg Documented by: Fluticasone Propionate (Fluticasone 0.05% 1 [place] Nasal.Sry) 1 spray NASAL DAILY PRN PRN PRN Reason: congestion Furosemide (Furosemide 40 Mg/4 Ml Vial) 40 mg IV DAILY [facility] Last Admin: 08/31/20 08:35 Dose: 40 mg Documented by: Guaifenesin (Guaifenesin 10 Ml Udc (200mg/10ml)) 20 ml PO Q4H PRN PRN PRN Reason: COUGH Last Admin: 08/28/20 05:38 Dose: 20 ml Documented by: Sodium Chloride () 250 mls @ 15 mls/hr IV .[id number] PRN PRN Reason: Saline Flush Sodium Chloride () 250 mls @ 15 mls/hr IV .[id number] PRN PRN Reason: Additional IVPB Infusion Last Infusion: 08/29/20 20:36 Dose: 0 mls/hr Documented by: Dexmedetomidine HCl 1,000 mcg/ (Sodium Chloride) 250 mls @ 21.588 mls/hr CONT INF .[id number] [facility]; Protocol Last Admin: 09/01/20 01:15 Dose: Not Given Documented by: Ibuprofen (Ibuprofen 400 Mg Tablet) 800 mg PO Q6H PRN PRN PRN Reason: Pain 1-10 or Fever Last Admin: 08/28/20 21:06 Dose: 800 mg Documented by: Lisinopril (Lisinopril 10 Mg Tablet) 10 mg PO DAILY [facility] Last Admin: 08/31/20 08:35 Dose: 10 mg Documented by: Lorazepam (Lorazepam 2 Mg/Ml Syringe) 0.5 mg IV Q6H PRN PRN PRN Reason: ANXIETY/AGITATION Last Admin: 08/31/20 03:11 Dose: 0.5 mg Documented by: Melatonin (Melatonin 3 Mg Tablet) 3 mg PO QHS PRN PRN PRN Reason: INSOMNIA Last Admin: 08/31/20 21:45 Dose: 3 mg Documented by: Miscellaneous Information (Inhaler, Assist Devices 1 Each Spacer) 1 each INHALATION PRN PRN PRN Reason: WITH ALBUTEROL MDI Montelukast Sodium (Montelukast 10 Mg Tablet) 10 mg PO QHS [facility] Last Admin: 08/31/20 21:45 Dose: 10 mg Documented by: Ondansetron HCl (Ondansetron 4 Mg/2 Ml Vial) 4 mg IV Q8H PRN PRN PRN Reason: NAUSEA/VOMITING Last Admin: 08/30/20 21:56 Dose: 4 mg Documented by: Pantoprazole Sodium (Pantoprazole Sodium 20 Mg Tablet) 20 mg PO DAILY [facility] Last Admin: 08/31/20 08:35 Dose: 20 mg Documented by: Sodium Chloride (0.9% Saline Lock 10 Ml Syringe) 10 - 40 ml IV UD PRN PRN Reason: SALINE FLUSH Last Admin: 08/31/20 08:36 Dose: 10 ml Documented by: Throat Lozenges (Benzocaine/Menthol 1 Lozenge) 1 lozenge MUCOUS MEM Q2H PRN PRN PRN Reason: SORE THROAT Medical Necessity - Tobacco Use Smoking Status: Former smoker Tobacco Use: Cigarettes, Chew Assessment/Plan All Active Problems (Last Reviewed 08/23/20 @ 14:[address] David Crow, DO) COVID-19 (Acute) Hypoxia (Acute) #1 acute COVID-19 multi lobar pneumonia-continue present treatment per infectious diseases, patient is no longer on remdesivir, he remains on dexamethasone. #2 acute hypoxic respiratory failure-continue to wean oxygen as tolerated, patient is currently on high flow oxygen/BiPAP, patient will not be able to be discharged until his oxygen requirement is decreased, patient is being followed by pulmonary medicine. For now patient is maintaining his oxygen saturation on continuous BiPAP, he is obviously in danger of decompensating however, patient is a full code. Patient's respiratory status is unchanged from yesterday. I talked with the patient today and he wants mechanical ventilation if he needs it. #3 essential hypertension #4 hyperlipidemia Inpatient E&M: 15242 Subs Hosp L2
[2020-09-01] MEDS: 0.9% Saline Lock 10 ML Syringe IV ×2 (08:14→12:16)
[2020-09-01 09:29] LABS: Absolute Lymphocyte Count 0.64 X10^3/uL (0.83-4.51); Absolute Neutrophil Count 13.7 X10^3/uL (2.0-7.7); Basophil# 0.04 X10^3/uL; Basophil% 0.3 % (0-1); Eosinophil# 0.04 X10^3/uL; Eosinophils% 0.3 % (0-5); Hematocrit 39.4 % (40-54); Hemoglobin 12.4 g/dL (13.0-16.5); Lymphocyte # 0.64 X10^3/ul (4.0); Lymphocyte % 4.3 % (19-41); Mean Corp Hgb Conc 31.5 g/dL (32-36); Mean Corpuscular Hgb 30.8 pg (27.0-32.0); Monocyte% 2.7 % (0-10); NRBC Flagged by Analyzer 0 % (0-5); Neutrophil # 13.65 X10^3/uL (2.7-7.7); Platelet Count 332 K/mm3 (150-450); RBC Distribution Width CV 14.8 % (11.6-14.6); Red Blood Count 4.02 M/mm3 (4.6-6.2)
[2020-09-01 09:58] LABS: Anion Gap 11 (5-15); BUN 85 mg/dL (7-18); BUN/Creat Ratio 42.3 RATIO (10-20); Calcium,Total 9.4 mg/dL (8.5-10.1); Chloride 105 mmol/L (98-107); Creatinine, Serum 2.01 mg/dL (0.70-1.30); EST Glomerular Filtration Rate 36 mL/min (>60); Est Glom Filt Rate - Afr Amer 43 mL/min (>60); Estimated Creatinine Clearance 37.13 ml/min; Glucose 142 mg/dL (74-106); Magnesium 3.8 mg/dL (1.6-2.6); Phosphorus 7.6 mg/dL (2.5-4.9); Sodium Level 141 mmol/L (136-145)
--- NOTE | 2020-09-01 10:30 | CASEMGMT ---
RN CM Note: participated in ICU interdisciplinary rounds. Patient was intubated, NG and central line placed. Presedex, Diprivan, Levophed. Failed mobility screen. Dietary to recommend tube feedings. DC planning on hold, will continue to follow and assist with dc planning needs.
[2020-09-01] MEDS: Etomidate 20 MG/10 ML Vial IV (10:43)
[2020-09-01] MEDS: Propofol 10MG/Ml 1,000 MG/100 ML Bottle 4.8 MG CONT INF (10:45)
--- NOTE | 2020-09-01 10:45 | NURSING ---
7.5 OET 23cm lip to Vent per Dr. Jordan. OG also placed per DR. Jordan
--- NOTE | 2020-09-01 10:54 | PN_ITS ---
Subjective: Patient struggled but did okay overnight. Patient has not tolerated BiPAP breaks very frequently. Discussed with patient this morning and he stated I want to live. Patient was attempted on Precedex, but this had to be discontinued secondary to bradycardia into the 30s. Patient was requiring 100% FiO2 on my arrival. After discussion of the risks, benefits and alternatives, patient was okay with being intubated. Objective: At approximately 1040, the patient was prepped for a semiurgent intubation. Patient was given 20 mg of etomidate and reached appropriate sedation. Patient was intubated on first attempt using a 7.5 endotracheal tube to 23 cm at the lips. Tube was visualized going through the vocal cords. Initial saturations were low, so PEEP was increased to 12. Patient did have poor vent synchrony initially, but meds are being titrated. General: - - Alert and interactive initially. Agreed to central line. HEENT: Atraumatic, PERRLA, EOMI, Normocephalic, - - Slight scleral injection without icterus Oral: Moist Mucosa, No Gingival or Mucosal Lesions/ Ulcerations, - - Significant secretions dried noted in the posterior pharynx. Neck: Supple, No JVD, No Nodes, Trachea Midline Lungs: No wheeze, No rales, Diminished, Rhonchi - Scattered Cardiovascular: Regular rate, Regular Rhythm, Normal S1, Normal S2 Abdomen: Bowel Sounds Present, Soft, Non Tender, Non-Distended Extremities: No clubbing, No cyanosis, No edema, Capillary Refill Less than 3 Seconds Skin: No rashes, No breakdown Musculoskeletal: No Tenderness to Palpation of Joints or Extremities Lymphatic: No Cervical, Supraclavicular, or Inguinal Adenopathy Neurological: Cranial nerves II-XII grossly intact, Neuro grossly intact, Motor Exam 5/5 strength throughout Psych/Mental Status: Flat Affect Vital Signs Temp Pulse Resp BP Pulse Ox 36.2 C L 53 L 20 H 92/58 L 93 09/01/20 04:00 09/01/20 07:00 09/01/20 07:00 09/01/20 07:00 09/01/20 07:00 Oxygen Flow Rate (L/min) 70 Oxygen Delivery Method Bi-pap Weight: 80.1 kg Body Mass Index (BMI) 27.1 Intake and Output for Last 24 Hours 08/30/20 08/31/20 09/01/20 23:59 23:59 23:59 Intake Total 680 / 780 825.60 / 825.60 0 / 0 Output Total 525 / 850 1065 / 1090 263 / 263 Balance 155 / -70 -239.40 / -264.40 -263 / -263 Labs (Last 48 Hours) 08/31/20 09/01/20 09/01/20 03:05 04:10 04:10 WBC 15.0 H RBC 4.02 L Hgb 12.4 L Hct 39.4 L MCV 98.0 H MCH 30.8 MCHC 31.5 L RDW Std Deviation 53.0 H RDW Coeff of Renzo 14.8 H Plt Count 332 MPV 12.0 Immature Gran % (Auto) 1.400 H Neut % (Auto) 91.0 H Lymph % (Auto) 4.3 L [place] % (Auto) 2.7 Eos % (Auto) 0.3 Baso % (Auto) 0.3 Absolute Neuts (auto) 13.7 H Absolute Lymphs (auto) 0.64 L Nucleated RBC % 0 Sodium 137 141 Potassium 4.1 4.0 Chloride 105 105 Carbon Dioxide 24.0 25.0 Anion Gap 8 11 BUN 43 H 85 H Creatinine 1.01 2.01 H Estim Creat Clear Calc 73.89 37.13 Est GFR (MDRD) Af Amer 95 43 L Est GFR (MDRD) Non-Af 79 36 L BUN/Creatinine Ratio 42.6 H 42.3 H Glucose 141 H 142 H Calcium 9.2 9.4 Phosphorus 7.6 H Magnesium 3.8 H Medical Necessity - Tobacco Use Smoking Status: Former smoker Tobacco Use: Cigarettes, Chew Assessment/Plan All Active Problems (Last Reviewed 08/23/20 @ 14:[address] David Crow, DO) COVID-19 (Acute) Hypoxia (Acute) RECOMMENDATIONS: 1. Initiate mechanical ventilation with a PEEP of 12 and 100%. 2. Wean oxygen as tolerated 3. Continue Decadron 6 mg daily to complete 10 days of treatment. 4. Continue diuretic regimen as tolerated by hemodynamics and renal function. 5. Continue twice daily Lovenox. 6. Spontaneous breathing and awakening trials per protocol IMPRESSIONS: 1. Acute hypoxemic respiratory failure secondary to COVID-19 pneumonia The patient initially presented to the hospital with Covid-like symptoms that began towards the end of July. The patient thus far has received convalescent plasma and was initially started on remdesivir. However, the remdesivir had to be discontinued due to worsening liver function. The patient did agree to intubation and was intubated without complication. We will continue with high PEEP and wean oxygen as tolerated. Patient will need a central line placed to facilitate additional drips. 2. Hypertension/hyperlipidemia/GERD Complicates care, management, recovery and prognosis. Continue home medications as indicated. Addendum 6:30 PM: Patient was significant decompensation following intubation. Attempts at increasing PEEP were unsuccessful and patient was eventually transitioned to APRV. Patient did require significant sedation and eventually had to be started on Levophed. No concomitant fever or other signs of sepsis was noted. Did hear from his daughter who reports the patient has never stopped drinking. TIME: 85 minutes of critical care time, independent of procedures, was spent addressing the patient's acute hypoxemic respiratory failure, COVID-19 pneumonia, review of all data and collaboration with the care team. (5:15 AM to 5:45 AM, 10 AM to 6 PM) 9xxxx: [id number] Critical care first hour Multi Select Codes - Hospitalists' Procedures Procedures: 66471 Critial Care Addl 30 Min
--- NOTE | 2020-09-01 11:03 | RAD_ITS ---
STUDY: X-RAY CHEST REASON FOR EXAM: Male, 64 years old. NG tube and ET tube placement. TECHNIQUE: Single AP portable view of the chest. COMPARISON: Comparison is made with prior study dated 08/28/2020. FINDINGS: An endotracheal tube has been placed. The tip is at 5.3 cm proximal to the paolo. An orogastric tube is seen with the tip in the body of the stomach. EKG electrodes are seen. There is evidence of diffuse subcutaneous emphysema overlying the thorax worse on the left side. This extends into the cervical regions bilaterally. There is also evidence of a small right pneumothorax and possible pneumomediastinum. Persistent mild increased markings at the lung bases although there has been improvement as compared to prior study. Normal size heart. Normal mediastinum and pennie. Normal visualized pulmonary arteries. Normal visualized aortic arch and descending thoracic aorta. Normal visualized thoracic spine. Normal visualized ribs, clavicles, and shoulders. There is no demonstrated abnormality of the visualized soft tissue structures of the upper abdomen. RAD/CXR for Line Placement IMPRESSION: Large amount of subcutaneous emphysema overlying the thorax as well as the lower cervical region. Small right-sided pneumothorax and findings suggestive of pneumomediastinum. The endotracheal tube is at 5.3 cm proximal to the paolo. The ICU was notified of the results. Electronically Signed: Mart Navarro, at 11:32 EST , Service support ,
[2020-09-01] MEDS: Rocuronium Bromide 50 MG/5 ML Vial 40 MG IV (11:15)
--- NOTE | 2020-09-01 11:34 | NURSING ---
1130 C Eugenio VEAG present in pt room, prep for CL placement Dr. Jordan aware crepitus. ok to cont line placement 1135 HR 102 R 14 BP 92/60 SpO2 95% 1140 HR 104 R 14 BP 107/64 SpO2 95% 1145 HR 112 R 14 BP 151/82 SpO2 96% begin placement 1150 HR 112 R 14 BP 125/70 SpO2 [address] call for Xray 1155 HR 110 R 14 BP 116/64 SpO2 95
[2020-09-01 11:41] LABS: Base Excess -4 mmol/L (-2 to +2); Bicarbonate 23.4 mmol/L (22-26); Blood Gas Specimen Type ART; FI02 100; Mode AC; O2 Delivery Device Adult Vent; PEEP 12; PO2 121 mmHG (75-100); RR 14; SITE R Radial; SO2 98 % (95-99); Total Carbon Dioxide 25 mmol/L; Vt 450; pCO2 57.6 mmHg (35-45); pH 7.22 (7.35-7.45)
--- NOTE | 2020-09-01 11:57 | CPS ---
Did not bill ambu bag, because RN took charge sticker and placed on patient's billing sheet at the bedside.
[2020-09-01] MEDS: QUEtiapine 25 MG Tablet 50 MG GT (12:02)
--- NOTE | 2020-09-01 12:10 | RAD_ITS ---
STUDY: X-RAY CHEST REASON FOR EXAM: Male, 64 years old. Line placement TECHNIQUE: Single AP portable view of the chest. COMPARISON: Comparison is made with prior study done earlier in the day at 11:01 AM. FINDINGS: A right-sided internal jugular venous catheter has been placed with the tip in the midportion of the superior vena cava. The endotracheal tube and orogastric tube are unchanged. Stable diffuse subcutaneous emphysema overlying the left side of the thorax as well as both supraclavicular regions. Stable small right pneumothorax and possible pneumomediastinum. RAD/CXR for Line Placement IMPRESSION: The tip of the right central venous catheter is in the midportion of the superior vena cava. Electronically Signed: Mart Navarro, at 12:26 EST , Service support ,
--- NOTE | 2020-09-01 12:11 | PCM.OPRPT ---
Report of Operation Date of Procedure: 09/01/20 Surgery/Procedure Performed:: Triple-lumen catheter insertion Description of Surgical Findings:: Central line placement procedure Indication: IV access/hemodynamic instability/vasoactive medications Procedure: A time-out was completed to verify correct patient, indication, medication allergies, procedure, coagulation studies, informed consent signed, and equipment needed. The patient was placed in the supine position for a central line placement to the rt IJ vein. The patients rt neck was prepped using chlorhexidine and a full body sterile drape was applied. 1% lidocaine was used to anesthetize the surrounding skin. A 7fr 16 cm blue guard triple lumen catheter introduced into the internal jugular vein using the modified Seldinger technique with the assistance of ultrasound. The catheter was threaded smoothly over the guidewire, the guidewire was removed easily, nonpulsatile blood returned. All ports were aspirated of air and flushed with sterile saline. The catheter was sutured in place and covered with an occlusive dressing impregnated with chlorhexidine. Post-procedure: The patient tolerated the procedure well. Vital signs remained stable. EBL 0. No complications. Chest X Ray ordered to confirm tip placement and the absence of pneumothorax. Procedures: [id number] Insert Non-tunnel CV Cath
--- NOTE | 2020-09-01 12:51 | CASEMGMT ---
MIGUEL called daughter Racquel Wu([phone]), offered support. She states she and pt's son, Bernabe are making decisions for pt while pt is intubated. SW spoke w/daughter about how she is handling everything emotionally, support given. Daughter asked about a letter for her employer to let them know her father is in the hospital, SW offered to fax it to her employer, Racquel states her employer is [employer], fax number is [phone]. MIGUEL faxed letter. MIGUEL remains available for any additional supportive services to family. VIKKI Flynn
[2020-09-01 13:00] LABS: CPK Total, Creatine Kinase 46 U/L (39-308); Triglycerides 364 mg/dL
[2020-09-01] MEDS: Haloperidol Lactate 5 MG/ML Vial IV (13:05)
[2020-09-01] MEDS: Propofol 10MG/Ml 1,000 MG/100 ML Bottle 19.2 MG CONT INF (14:00)
[2020-09-01] MEDS: Aspirin E.C. 81 MG Tablet PO (14:17)
[2020-09-01] MEDS: Pantoprazole Sodium 20 MG Tablet PO (14:17)
[2020-09-01] MEDS: dexAMETHasone 4 MG Tablet 6 MG PO (14:17)
[2020-09-01 15:41] LABS: Allen Test Positive; Base Excess -5 mmol/L (-2 to +2); Bicarbonate 21.3 mmol/L (22-26); Blood Gas Specimen Type ART; FI02 100; Mode AC; O2 Delivery Device Adult Vent; PEEP 16; PO2 59 mmHG (75-100); RR 14; SITE R Radial; SO2 86 % (95-99); Total Carbon Dioxide 23 mmol/L; Vt 450; pCO2 44.7 mmHg (35-45); pH 7.29 (7.35-7.45)
[2020-09-01] MEDS: TITRATION PARAMETER CHANGE 1 EACH IV ×2 (15:58)
[2020-09-01] MEDS: Phenobarbital 32.4 MG Tablet 97.2 MG PO (15:58)
[2020-09-01] MEDS: Sodium Bicarbonate 8.4% 50 ML Syringe 50 MEQ IV (16:26)
[2020-09-01] MEDS: Enoxaparin 30 MG/0.3 ML Syringe SC ×2 (16:27→22:01)
--- NOTE | 2020-09-01 16:44 | PN.ID_ITS ---
Patient Problems: Active and Suspected Problems (Last Reviewed 08/23/20 @ 14:[address] David Crow, DO) COVID-19 (Acute) Hypoxia (Acute) Subjective: Now intubated, no fever - Physical Exam Vitals/I&O's: Vital Signs Temp Pulse Resp BP Pulse Ox 97.2 F L 83 23 H 70/47 L 84 09/01/20 04:00 09/01/20 15:45 09/01/20 15:45 09/01/20 14:30 09/01/20 15:45 Oxygen Flow Rate (L/min) 70 Oxygen Delivery Method Bi-pap Weight: 80.1 kg Body Mass Index (BMI) 27.1 Intake and Output for Last 24 Hours 08/30/20 08/31/20 09/01/20 23:59 23:59 23:59 Intake Total 680 / 780 825.60 / 825.60 73.18 / 73.18 Output Total 525 / 850 1065 / 1090 428 / 428 Balance 155 / -70 -239.40 / -264.40 -354.82 / -354.82 General: Non-Cooperative Lungs: Diminished Cardiovascular: Regular rate, Regular Rhythm Abdomen: Soft, Non Tender, Non-Distended Skin: No rashes Laboratory Results 09/01/20 04:10: WBC 15.0 H, RBC 4.02 L, Hgb 12.4 L, Hct 39.4 L, MCV 98.0 H, MCH 30.8, MCHC 31.5 L, RDW Std Deviation 53.0 H, RDW Coeff of Renzo 14.8 H, Plt Count 332, MPV 12.0, Immature Gran % (Auto) 1.400 H, Neut % (Auto) 91.0 H, Lymph % (Auto) 4.3 L, [place] % (Auto) 2.7, Eos % (Auto) 0.3, Baso % (Auto) 0.3, Absolute Neuts (auto) 13.7 H, Absolute Lymphs (auto) 0.64 L, Nucleated RBC % 0 09/01/20 04:10: Sodium 141, Potassium 4.0, Chloride 105, Carbon Dioxide 25.0, Anion Gap 11, BUN 85 H, Creatinine 2.01 H, Estim Creat Clear Calc 37.13, Est GFR (MDRD) Af Amer 43 L, Est GFR (MDRD) Non-Af 36 L, BUN/Creatinine Ratio 42.3 H, Glucose 142 H, Calcium 9.4, Phosphorus 7.6 H, Magnesium 3.8 H 09/01/20 11:33: Specimen Type ART, Sample Site R Radial, pH 7.22 L, Bicarbonate Actual 23.4, Total CO2 25, Base Excess -4 L, O2 Saturation 98, O2 % 100, ABG pCO2 57.6 H, ABG pO2 121 H, Respiration Rate 14, O2 Delivery Device Adult Vent, Vent Mode AC, Tidal Volume 450, POC PEEP 12 09/01/20 12:15: Total Creatine Kinase 46, Triglycerides 364 H 09/01/20 15:36: Specimen Type ART, Sample Site R Radial, pH 7.29 L, Bicarbonate Actual 21.3 L, Total CO2 23, Base Excess -5 L, O2 Saturation 86 L, O2 % 100, ABG pCO2 44.7, ABG pO2 59 L, Vidal Test Positive, Respiration Rate 14, O2 Delivery Device Adult Vent, Vent Mode AC, Tidal Volume 450, POC PEEP 16 Current Medications Acetaminophen (Acetaminophen 325 Mg Tablet) 650 mg PO Q6H PRN PRN PRN Reason: Pain Score 1-10/Temp > 100.7 F Last Admin: 08/25/20 16:34 Dose: 650 mg Documented by: Albuterol Sulfate (Albuterol Sulfate 18 Gm Inhaler (200 Puffs)) 2 puff IH Q4H PRN PRN PRN Reason: SOB or wheezing Last Admin: 08/29/20 11:47 Dose: 2 puff Documented by: Aspirin (Aspirin E.C. 81 Mg Tablet) 81 mg PO DAILY [facility] [place] Last Admin: 09/01/20 14:17 Dose: 81 mg Documented by: Atorvastatin Calcium (Atorvastatin Calcium 40 Mg Tablet) 40 mg PO QHS [facility] [place] Last Admin: 08/31/20 21:45 Dose: 40 mg Documented by: Dexamethasone (Dexamethasone 4 Mg Tablet) 6 mg PO QAM [facility] [place] Stop: 09/03/20 10:01 Last Admin: 09/01/20 14:17 Dose: 6 mg Documented by: Enoxaparin Sodium (Enoxaparin 30 Mg/0.3 Ml Syringe) 30 mg SC BID [facility] [place] Last Admin: 09/01/20 16:27 Dose: 30 mg Documented by: Fluticasone Propionate (Fluticasone 0.05% 1 Matthews Nasal.Sry) 1 spray NASAL DAILY PRN PRN PRN Reason: congestion Furosemide (Furosemide 40 Mg/4 Ml Vial) 40 mg IV DAILY [facility] [place] Last Admin: 09/01/20 14:31 Dose: Not Given Documented by: Guaifenesin (Guaifenesin 10 Ml Udc (200mg/10ml)) 20 ml PO Q4H PRN PRN PRN Reason: COUGH Last Admin: 08/28/20 05:38 Dose: 20 ml Documented by: Sodium Chloride () 250 mls @ 15 mls/hr IV .[id number] PRN PRN Reason: Saline Flush Sodium Chloride () 250 mls @ 15 mls/hr IV .[id number] PRN PRN Reason: Additional IVPB Infusion Last Infusion: 08/29/20 20:36 Dose: 0 mls/hr Documented by: Dexmedetomidine HCl 1,000 mcg/ (Sodium Chloride) 250 mls @ 21.588 mls/hr CONT INF .[id number] MIRELLA; Protocol Last Admin: 09/01/20 14:32 Dose: Not Given Documented by: Propofol (Diprivan) 1,000 mg in 100 mls @ 19.224 mls/hr CONT INF .[id number] MIRELLA; Protocol Last Titration: 09/01/20 14:00 Dose: 40 mcg/kg/min, 19.2 mls/hr Documented by: Fentanyl Citrate 1,000 mcg/ (Sodium Chloride) 100 mls @ 20 mls/hr CONT INF .Q5H MIRELLA; Protocol Last Titration: 09/01/20 11:45 Dose: 200 mcg/hr, 20 mls/hr Documented by: Norepinephrine Bitartrate 8 mg (/ Sodium Chloride) 250 mls @ 9.375 mls/hr CONT INF .[id number] MIRELLA; Protocol Last Titration: 09/01/20 14:30 Dose: 15 mcg/min, 28.1 mls/hr Documented by: Ibuprofen (Ibuprofen 400 Mg Tablet) 800 mg PO Q6H PRN PRN PRN Reason: Pain 1-10 or Fever Last Admin: 08/28/20 21:06 Dose: 800 mg Documented by: Lisinopril (Lisinopril 10 Mg Tablet) 10 mg PO DAILY [facility] [place] Last Admin: 09/01/20 14:31 Dose: Not Given Documented by: Lorazepam (Lorazepam 2 Mg/Ml Syringe) 0.5 mg IV Q6H PRN PRN PRN Reason: ANXIETY/AGITATION Last Admin: 08/31/20 03:11 Dose: 0.5 mg Documented by: Melatonin (Melatonin 3 Mg Tablet) 3 mg PO QHS PRN PRN PRN Reason: INSOMNIA Last Admin: 08/31/20 21:45 Dose: 3 mg Documented by: Miscellaneous Information (Inhaler, Assist Devices 1 Each Spacer) 1 each INHALATION PRN PRN PRN Reason: WITH ALBUTEROL MDI Montelukast Sodium (Montelukast 10 Mg Tablet) 10 mg PO QHS MIRE[facility] Last Admin: 08/31/20 21:45 Dose: 10 mg Documented by: Ondansetron HCl (Ondansetron 4 Mg/2 Ml Vial) 4 mg IV Q8H PRN PRN PRN Reason: NAUSEA/VOMITING Last Admin: 08/30/20 21:56 Dose: 4 mg Documented by: Pantoprazole Sodium (Pantoprazole Sodium 20 Mg Tablet) 20 mg PO DAILY [facility] [place] Last Admin: 09/01/20 14:17 Dose: 20 mg Documented by: Quetiapine Fumarate (Quetiapine 100 Mg Tablet) 100 mg GT BID [facility] [place] Senna/Docusate Sodium (Senna/Docusate Sodium 1 Tablet) 1 tablet PO BID PRN PRN Reason: Constipation Sodium Chloride (0.9% Saline Lock 10 Ml Syringe) 10 - 40 ml IV UD PRN PRN Reason: SALINE FLUSH Last Admin: 09/01/20 12:16 Dose: 30 ml Documented by: Throat Lozenges (Benzocaine/Menthol 1 Lozenge) 1 lozenge MUCOUS MEM Q2H PRN PRN PRN Reason: SORE THROAT Medical Necessity - Tobacco Use Smoking Status: Former smoker Tobacco Use: Cigarettes, Chew Route of nutrition/ use of supplements: [] Nutritional Intake: [] IV Site: [] Alaniz Catheter: [] - Assessment/Plan Antibiotics: [] Assessment/Plan: [] Active and Suspected Problems (Last Reviewed 08/23/20 @ 14:[address] David Crow, DO) COVID-19 (Acute) Hypoxia (Acute) On dex. Got plasma 08/25. Started remdesivir 08/25, but had rise in ALT to 306, so stopped the following day. CT neg for PE. On lovenox 30mg bid. Intubated 09/01. Wbc 5, no fever. Will follow
--- NOTE | 2020-09-01 16:48 | RAD_ITS ---
STUDY: X-RAY CHEST REASON FOR EXAM: Male, 64 years old. Chest pain/pressure TECHNIQUE: Single AP portable view of the chest. COMPARISON: Earlier today FINDINGS: Stable appearance of the support lines and tubes. The lungs are expanded with stable interstitial changes in both lung barnes, development of bibasilar atelectasis since the previous study. No pleural or pericardial effusion, but there is persistent subcutaneous emphysema. Normal size heart. Normal mediastinum and pennie. Normal visualized pulmonary arteries. Normal visualized aortic arch and descending thoracic aorta. Normal visualized thoracic spine. Normal visualized ribs, clavicles, and shoulders. There is no demonstrated abnormality of the visualized soft tissue structures of the upper abdomen. RAD/Chest 1 View (Portable) IMPRESSION: No interval change Electronically Signed: Adeel Meredith MD at 18:39 EST , Service support ,
[2020-09-01 17:00] LABS: Allen Test Positive; Base Excess -3 mmol/L (-2 to +2); Bicarbonate 22.3 mmol/L (22-26); Blood Gas Specimen Type ART; FI02 100; Mode BiLevel; O2 Delivery Device Adult Vent; PO2 52 mmHG (75-100); SITE R Radial; SO2 85 % (95-99); Total Carbon Dioxide 24 mmol/L; pCO2 39.7 mmHg (35-45); pH 7.36 (7.35-7.45)
[2020-09-01] MEDS: Propofol 10MG/Ml 1,000 MG/100 ML Bottle 12 MG CONT INF (19:25)
[2020-09-01] MEDS: Atorvastatin Calcium 40 MG Tablet PO (21:59)
[2020-09-01] MEDS: Montelukast 10 MG Tablet PO (21:59)
[2020-09-01] MEDS: QUEtiapine 100 MG Tablet GT (22:00)
[2020-09-02] VITALS (52 sets, daily range): BP systolic 57–159; BP diastolic 41–98; PULSE 70–115; RESP 9–93; TEMP 36.4–36.9; O2SAT 87–96; BMI 26.0
[2020-09-02] MEDS: Propofol 10MG/Ml 1,000 MG/100 ML Bottle 7.2 MG CONT INF ×2 (01:30→04:20)
[2020-09-02 05:10] LABS: Allen Test Positive; Base Excess -4 mmol/L (-2 to +2); Bicarbonate 21.2 mmol/L (22-26); Blood Gas Specimen Type ART; FI02 100; Mode BiLevel; O2 Delivery Device Adult Vent; PO2 68 mmHG (75-100); RR 12; SITE L Radial; SO2 93 % (95-99); Total Carbon Dioxide 22 mmol/L; pCO2 36.2 mmHg (35-45); pH 7.38 (7.35-7.45)
[2020-09-02] MEDS: 0.9% Saline Lock 10 ML Syringe IV (05:46)
[2020-09-02 06:06] LABS: Absolute Lymphocyte Count 0.57 X10^3/uL (0.83-4.51); Absolute Neutrophil Count 19.4 X10^3/uL (2.0-7.7); Basophil# 0.03 X10^3/uL; Basophil% 0.1 % (0-1); Differential Indicated SCAN CRITERIA MET; Hematocrit 38.6 % (40-54); Lymphocyte # 0.57 X10^3/ul (4.0); Lymphocyte % 2.7 % (19-41); Mean Corp Hgb Conc 31.1 g/dL (32-36); Mean Corpuscular Hgb 30.4 pg (27.0-32.0); Mean Corpuscular Volume 97.7 fL (80-94); Mean Platelet Vol. 11.6 fl (6.2-12.0); Monocyte# 0.64 X10^3/uL; NRBC Flagged by Analyzer 0.1 % (0-5); Neutrophil # 19.44 X10^3/uL (2.7-7.7); Neutrophil % 92.7 % (47-70); POSITIVE DIFFERENTIAL YES; Platelet Count 385 K/mm3 (150-450); RBC Distribution Width CV 15.1 % (11.6-14.6); RBC Distribution Width SD 54.3 fl (35.1-43.9); Red Blood Count 3.95 M/mm3 (4.6-6.2)
[2020-09-02 06:28] LABS: Anion Gap 15 (5-15); BUN 126 mg/dL (7-18); BUN/Creat Ratio 27.8 RATIO (10-20); Calcium,Total 7.9 mg/dL (8.5-10.1); Chloride 104 mmol/L (98-107); Creatinine, Serum 4.54 mg/dL (0.70-1.30); EST Glomerular Filtration Rate 14 mL/min (>60); Est Glom Filt Rate - Afr Amer 17 mL/min (>60); Estimated Creatinine Clearance 16.44 ml/min; Glucose 195 mg/dL (74-106); Magnesium 3.9 mg/dL (1.6-2.6); Phosphorus 8.7 mg/dL (2.5-4.9); Potassium 4.6 mmol/L (3.5-5.1); Sodium Level 141 mmol/L (136-145)
[2020-09-02 06:48] LABS: Differential Comment SCANNED
--- NOTE | 2020-09-02 07:15 | PN_ITS ---
Subjective: Overnight issues were noted. Patient did improve his saturations overnight, but is still requiring high FiO2 to maintain saturations. Patient has had progression in his subcutaneous emphysema per nursing, but is not reporting any pain and will interact when questioned. General: Alert, Cooperative, No apparent distress, - - Good ventilator synchrony. Significant worsening and subcutaneous emphysema of the neck and chest HEENT: Atraumatic, PERRLA, EOMI, Normocephalic, - - Slight scleral injection without icterus Oral: Moist Mucosa, No Gingival or Mucosal Lesions/ Ulcerations Neck: Supple, No Nodes, Trachea Midline, - - Significant subcutaneous emphysema. Lungs: No rhonchi, No wheeze, No rales, Diminished, - - Symmetric expansion. Cardiovascular: Regular rate, Regular Rhythm, Normal S1, Normal S2, No murmurs, No rub noted, No Gallop Abdomen: Bowel Sounds Present, Soft, Non Tender, Distended - Slightly Extremities: No clubbing, No cyanosis, No edema Skin: No rashes, No breakdown Musculoskeletal: No Tenderness to Palpation of Joints or Extremities Lymphatic: No Cervical, Supraclavicular, or Inguinal Adenopathy Neurological: Cranial nerves II-XII grossly intact, Neuro grossly intact, Motor Exam 5/5 strength throughout Psych/Mental Status: Normal Affect, Appropriate Vital Signs Temp Pulse Resp BP Pulse Ox 36.4 C L 80 19 H 98/68 92 09/02/20 00:00 09/02/20 06:55 09/02/20 06:55 09/02/20 02:30 09/02/20 06:55 Oxygen Flow Rate (L/min) 70 Oxygen Delivery Method Mechanical Ventilator Weight: 80.1 kg Body Mass Index (BMI) 27.1 Intake and Output for Last 24 Hours 08/31/20 09/01/20 09/02/20 23:59 23:59 23:59 Intake Total 825.60 / 825.60 921.23 / 934.60 364.22 / 364.22 Output Total 1065 / 1090 439 / 464 44 / 44 Balance -239.40 / -264.40 482.23 / 470.60 320.22 / 320.22 Labs (Last 48 Hours) 09/01/20 09/01/20 09/01/20 04:10 04:10 11:33 WBC 15.0 H RBC 4.02 L Hgb 12.4 L Hct 39.4 L MCV 98.0 H MCH 30.8 MCHC 31.5 L RDW Std Deviation 53.0 H RDW Coeff of Renzo 14.8 H Plt Count 332 MPV 12.0 Immature Gran % (Auto) 1.400 H Neut % (Auto) 91.0 H Lymph % (Auto) 4.3 L [place] % (Auto) 2.7 Eos % (Auto) 0.3 Baso % (Auto) 0.3 Absolute Neuts (auto) 13.7 H Absolute Lymphs (auto) 0.64 L Nucleated RBC % 0 Differential Comment Specimen Type ART Sample Site R Radial pH 7.22 L Bicarbonate Actual 23.4 Total CO2 25 Base Excess -4 L O2 Saturation 98 O2 % 100 ABG pCO2 57.6 H ABG pO2 121 H Vidal Test Respiration Rate 14 O2 Delivery Device Adult Vent Vent Mode AC Tidal Volume 450 POC PEEP 12 Sodium 141 Potassium 4.0 Chloride 105 Carbon Dioxide 25.0 Anion Gap 11 BUN 85 H Creatinine 2.01 H Estim Creat Clear Calc 37.13 Est GFR (MDRD) Af Amer 43 L Est GFR (MDRD) Non-Af 36 L BUN/Creatinine Ratio 42.3 H Glucose 142 H Calcium 9.4 Phosphorus 7.6 H Magnesium 3.8 H Total Creatine Kinase Triglycerides 09/01/20 09/01/20 09/01/20 12:15 15:36 16:55 WBC RBC Hgb Hct MCV MCH MCHC RDW Std Deviation RDW Coeff of Renzo Plt Count MPV Immature Gran % (Auto) Neut % (Auto) Lymph % (Auto) [place] % (Auto) Eos % (Auto) Baso % (Auto) Absolute Neuts (auto) Absolute Lymphs (auto) Nucleated RBC % Differential Comment Specimen Type ART ART Sample Site R Radial R Radial pH 7.29 L 7.36 Bicarbonate Actual 21.3 L 22.3 Total CO2 23 24 Base Excess -5 L -3 L O2 Saturation 86 L 85 L O2 % 100 100 ABG pCO2 44.7 39.7 ABG pO2 59 L 52 L Vidal Test Positive Positive Respiration Rate 14 O2 Delivery Device Adult Vent Adult Vent Vent Mode AC BiLevel Tidal Volume 450 POC PEEP 16 Sodium Potassium Chloride Carbon Dioxide Anion Gap BUN Creatinine Estim Creat Clear Calc Est GFR (MDRD) Af Amer Est GFR (MDRD) Non-Af BUN/Creatinine Ratio Glucose Calcium Phosphorus Magnesium Total Creatine Kinase 46 Triglycerides 364 H 09/02/20 09/02/20 09/02/20 05:04 05:40 05:40 WBC 21.0 H RBC 3.95 L Hgb 12.0 L Hct 38.6 L MCV 97.7 H MCH 30.4 MCHC 31.1 L RDW Std Deviation 54.3 H RDW Coeff of Renzo 15.1 H Plt Count 385 MPV 11.6 Immature Gran % (Auto) 1.500 H Neut % (Auto) 92.7 H Lymph % (Auto) 2.7 L [place] % (Auto) 3.0 Eos % (Auto) 0.0 Baso % (Auto) 0.1 Absolute Neuts (auto) 19.4 H Absolute Lymphs (auto) 0.57 L Nucleated RBC % 0.1 Differential Comment SCANNED Specimen Type ART Sample Site L Radial pH 7.38 Bicarbonate Actual 21.2 L Total CO2 22 Base Excess -4 L O2 Saturation 93 L O2 % 100 ABG pCO2 36.2 ABG pO2 68 L Vidal Test Positive Respiration Rate 12 O2 Delivery Device Adult Vent Vent Mode BiLevel Tidal Volume POC PEEP Sodium 141 Potassium 4.6 Chloride 104 Carbon Dioxide 22.0 Anion Gap 15 BUN 126 H* Creatinine 4.54 H Estim Creat Clear Calc 16.44 Est GFR (MDRD) Af Amer 17 L Est GFR (MDRD) Non-Af 14 L BUN/Creatinine Ratio 27.8 H Glucose 195 H Calcium 7.9 L Phosphorus 8.7 H Magnesium 3.9 H Total Creatine Kinase Triglycerides Clinical Impression(s) from Imaging Studies Chest X-Ray 09/01/20 11:03 IMPRESSION: Large amount of subcutaneous emphysema overlying the thorax as well as the lower cervical region. Small right-sided pneumothorax and findings suggestive of pneumomediastinum. The endotracheal tube is at 5.3 cm proximal to the paolo. The ICU was notified of the results. Electronically Signed: Mart Navarro, at 11:32 EST , Service support , Chest X-Ray 09/01/20 12:10 IMPRESSION: The tip of the right central venous catheter is in the midportion of the superior vena cava. Electronically Signed: Mart Navarro, at 12:26 EST , Service support , Chest X-Ray 09/01/20 16:48 IMPRESSION: No interval change Electronically Signed: Adeel Meredith MD at 18:39 EST , Service support , Medical Necessity - Tobacco Use Smoking Status: Former smoker Tobacco Use: Cigarettes, Chew Assessment/Plan All Active Problems (Last Reviewed 08/23/20 @ 14:[address] David Crow, DO) COVID-19 (Acute) Hypoxia (Acute) RECOMMENDATIONS: 1. Continue APRV and wean oxygen as tolerated 2. Obtain chest x-ray for evaluation of possible pneumothorax versus worsening pneumomediastinum 3. Continue Decadron 6 mg daily to complete 10 days of treatment. 4. Consult nephrology 5. Continue twice daily Lovenox. 6. Spontaneous breathing and awakening trials per protocol IMPRESSIONS: 1. Acute hypoxemic respiratory failure secondary to COVID-19 pneumonia The patient initially presented to the hospital with Covid-like symptoms that began towards the end of July. The patient thus far has received convalescent plasma and was initially started on remdesivir. However, the remdesivir had to be discontinued due to worsening liver function. Patient was significant worsening in respiratory status over the last 24 to 48 hours. Patient has developed a pneumomediastinum and crepitus appears to be worsening. Will obtain a chest x-ray to evaluate for possible worsening pneumomediastinum versus development of a new pneumothorax. 2. Hypertension/hyperlipidemia/GERD Complicates care, management, recovery and prognosis. Continue home medications as indicated. 3. Acute kidney injury Clinical suspicion for worsening in renal function secondary to hypotension associated with intubation and stabilization of hypoxia. Will consult nephrology. Placement of a dialysis catheter could be complicated by pneumomediastinum. TIME: 35 minutes of critical care time, independent of procedures, was spent addressing the patient's acute hypoxemic respiratory failure, COVID-19 pneumonia, review of all data and collaboration with the care team. (5:20 AM to 6:20 AM) [id number]: [id number] Critical care first hour
--- NOTE | 2020-09-02 07:17 | RAD_ITS ---
STUDY: X-RAY CHEST REASON FOR EXAM: Male, 64 years old. Pneumomediastinum TECHNIQUE: Single AP portable view of the chest. COMPARISON: Comparison is made with prior study dated 09/01/2020. FINDINGS: Endotracheal tube is in situ. The tip is at 4.2 cm proximal to the paolo. An orogastric tube is seen with the tip in the body of the stomach. A right-sided internal jugular venous catheter is seen with the tip in the midportion of the superior vena cava. EKG electrodes are seen. Once again, there is severe diffuse bilateral subcutaneous emphysema involving both right and left thorax extending into the cervical region. There is also evidence of a small right pneumothorax and possible small pneumomediastinum. Stable increased markings at the lung bases suggestive of bibasilar atelectasis and/or infiltrates. Normal size heart. Normal mediastinum and pennie. Normal visualized pulmonary arteries. Normal visualized aortic arch and descending thoracic aorta. Normal visualized thoracic spine. Normal visualized ribs, clavicles, and shoulders. There is no demonstrated abnormality of the visualized soft tissue structures of the upper abdomen. RAD/Chest 1 View (Portable) IMPRESSION: Stable examination. Electronically Signed: Mart Navarro, at 10:32 EST , Service support ,
[2020-09-02] MEDS: QUEtiapine 100 MG Tablet GT ×2 (08:25→20:21)
[2020-09-02 08:38] LABS: International Normalized Ratio 1.6; Prothrombin Time (Protime)PT. 18.1 SECONDS (11.7-14.9)
--- NOTE | 2020-09-02 10:25 | CASEMGMT ---
RN CM Interdisciplinary note: participated in ICU rounds. Patient remains on ventilator 100%, plan is to try to wean oxygen and peep today. Pt remains on Fentanyl, Levophed, Diprovan IV. Failed mobility screening, PT/OT on hold. Tube feeds per dietary. DC PLANNING: deferred @ this time. Jennifer EATONN RN ACM
--- NOTE | 2020-09-02 11:30 | NT.THERAPY_ITS ---
Nutrition Therapy Report - History Nutrition Services has been consulted to:: Manage enteral nutrition Current diet / nutrition support order:: NPO; CIB TID w/ meals - Anthropometric Measurements Height:: 5 ft 9 in Weight:: 80.1 kg Body Mass Index (BMI):: 26.0 - Relevant Labs Relevant Labs:: WBC 21.0 K/mm3 (4.4-11.0) H 09/02/20 05:40 RBC 3.95 M/mm3 (4.6-6.2) L 09/02/20 05:40 Hgb 12.0 g/dL (13.0-16.5) L 09/02/20 05:40 Hct 38.6 % (40-54) L 09/02/20 05:40 MCV 97.7 fL (80-94) H 09/02/20 05:40 MCHC 31.1 g/dL (32-36) L 09/02/20 05:40 RDW Std Deviation 54.3 fl (35.1-43.9) H 09/02/20 05:40 RDW Coeff of Renzo 15.1 % (11.6-14.6) H 09/02/20 05:40 Immature Gran % (Auto) 1.500 % (0.0-0.9) H 09/02/20 05:40 Neut % (Auto) 92.7 % (47-70) H 09/02/20 05:40 Lymph % (Auto) 2.7 % (19-41) L 09/02/20 05:40 Absolute Neuts (auto) 19.4 X10^3/uL (2.0-7.7) H 09/02/20 05:40 Absolute Lymphs (auto) 0.57 X10^3/uL (0.83-4.51) L 09/02/20 05:40 PT 18.1 SECONDS (11.7-14.9) H 09/02/20 05:20 D-Dimer Quant (PE/DVT) 0.90 FEU/ug/m (0.27-0.49) H* 08/23/20 13:07 Sodium 135 mmol/L (136-145) L 08/23/20 13:07 Potassium 3.3 mmol/L (3.5-5.1) L 08/23/20 13:07 Chloride 111 mmol/L (98-107) H 08/28/20 05:15 BUN 126 mg/dL (7-18) H* 09/02/20 05:40 Creatinine 4.54 mg/dL (0.70-1.30) H 09/02/20 05:40 Est GFR (MDRD) Af Amer 17 mL/min (>60) L 09/02/20 05:40 Est GFR (MDRD) Non-Af 14 mL/min (>60) L 09/02/20 05:40 BUN/Creatinine Ratio 27.8 RATIO (10-20) H 09/02/20 05:40 Glucose 195 mg/dL (74-106) H 09/02/20 05:40 Calcium 7.9 mg/dL (8.5-10.1) L 09/02/20 05:40 Phosphorus 8.7 mg/dL (2.5-4.9) H 09/02/20 05:40 Magnesium 3.9 mg/dL (1.6-2.6) H 09/02/20 05:40 Total Bilirubin 1.20 mg/dL (0.20-1.00) H 08/23/20 13:07 AST 100 U/L (15-37) H 08/28/20 05:15 ALT 169 U/L (16-61) H 08/28/20 05:15 Alkaline Phosphatase 213 U/L (45-117) H 08/28/20 05:15 Albumin 2.2 g/dL (3.2-5.0) L 08/28/20 05:15 Globulin 4.7 g/dL (2.2-4.2) H 08/28/20 05:15 Albumin/Globulin Ratio 0.5 RATIO (0.9-2.4) L 08/28/20 05:15 Triglycerides 364 mg/dL (-199) H 09/01/20 12:15 Procalcitonin 0.13 ng/mL (0.00-0.09) H 08/23/20 18:43 - Assessment Food / Nutrition-Related History:: Discussed in ICU rounds. Pt is currently intubated. OGT in place. Nursing staff reports some coffee ground output from OGT. Worsening renal function- nephrology consulted. Will likely have dialysis. Wt appears stable, continues on lasix. Last BM documented on 08/27/20- senna ordered per rounds. - Nutrition Diagnosis Problem / Etiology / Signs & Symptoms (PES):: Pt w/ inadequate oral intake related to resp. failure w/ COVID-19 as evidenced by no PO intake x 3 days. Evidence of Malnutrition Exists:: No - Nutrition Intervention Nutrition Prescription:: Re-estimated nutritional needs: 9601-0190 calories, 90- 100 g protein/day. - Food / Nutrient Delivery Interventions Summary of nutrition intervention:: Per Dr. Jordan- OK for trophic feeds d/t inadequate oral intake prior to intubation. Nursing staff OK w/ hourly boluses for tropic feeds. Per Dr. Jordan, bolus rates not to exceed 100mL. Nutrition support ordered as / adjusted to:: Vital AF 1.2 at 30mL/hour to provide 864 calories, 54 g protein, and 583mL water from formula per day. Total formula to be administered per 24 hours: 720mL. For hourly bolus administration of tube feeds, recommend 20mL H2O flush before and after each bolus to provide 1543mL total fluid/day. - MNT Monitoring Further MNT monitoring and evaluation required?: Yes MNT Follow-up in:: 1-2 days
[2020-09-02 11:35] LABS: Bedside Glucose 177 mg/dL (70-110)
--- NOTE | 2020-09-02 11:48 | NURSING ---
1150 [address] Eugenio BOLTON present in pt room. set up for dialysis cath placement HR 71 R 13 BP 129/75 SpO2 96 1155 HR 81 R 12 BP 78/63 SpO2 93 placement begun 1200 HR 70 R 12 BP 128/63 SpO2 96 1205 HR 81 R 12 BP 112/57 SpO2 93 YASMIN Maloney dialysis cath in place. 1.4ml 1000/ml heparin instilled both ports.
--- NOTE | 2020-09-02 12:14 | CON.PCM_ITS ---
Consultation - Renal 09/02/20 PCP/ Referring MD: Requesting physician: [] Primary care physician: Dr. Rock Montes MD - History of Present Illness History of Present Illness: The patient is a 64 year old M w/ pmh as below who presented with sob and being sick for a week and also 5 family members sick and he was found positive for covid-19.His oxygen sat dropped at home so he presneted to the hospital.He was later on intubated and also developed shock on Levophed so renal consult was obtained today because his serum creatinine was in the mid 4 range with a BUN in the 120s range. According to the nurse the patient is oliguric. The patient is intubated so review of systems cannot be obtained. He received convalescent plasma and was initially started on remdesivir. The remdesivir had to be discontinued because of his worsening liver function. Patient developed pneumomediastinum and crepitus. - Allergies Allergies: Allergies doxycycline Allergy (Intermediate, Verified 08/23/20 12:53) GI upset Penicillins Allergy (Verified 08/23/20 12:53) Anaphylaxis - Current Medications Current Medications: Current Medications Acetaminophen (Acetaminophen 650 Mg/20 Ml Udc) 650 mg GT Q6H PRN PRN PRN Reason: Pain Score 1-10/Temp > 100.7 F Albuterol Sulfate (Albuterol Sulfate 18 Gm Inhaler (200 Puffs)) 2 puff IH Q4H PRN PRN PRN Reason: SOB or wheezing Last Admin: 08/29/20 11:47 Dose: 2 puff Documented by: Aspirin (Aspirin 81 Mg Tab.Chew) 81 mg GT DAILY [facility] Atorvastatin Calcium (Atorvastatin Calcium 40 Mg Tablet) 40 mg GT QHS [facility] Dexamethasone (Dexamethasone 4 Mg Tablet) 6 mg GT QAM [facility] Stop: 09/03/20 23:30 Enoxaparin Sodium (Enoxaparin 30 Mg/0.3 Ml Syringe) 30 mg SC DAILY [facility] Fluticasone Propionate (Fluticasone 0.05% 1 [place] Nasal.Sry) 1 spray NASAL DAILY PRN PRN PRN Reason: congestion Furosemide (Furosemide 40 Mg/4 Ml Vial) 40 mg IV DAILY [facility] Last Admin: 09/01/20 14:31 Dose: Not Given Documented by: Guaifenesin (Guaifenesin 10 Ml Udc (200mg/10ml)) 20 ml GT Q4H PRN PRN PRN Reason: COUGH Heparin Sodium (Porcine) (Heparin 10,000 Units/10 Ml Vial) 2,600 units IV DAILY PRN PRN Reason: DIALYSIS Sodium Chloride () 250 mls @ 15 mls/hr IV .[id number] PRN PRN Reason: Saline Flush Sodium Chloride () 250 mls @ 15 mls/hr IV .[id number] PRN PRN Reason: Additional IVPB Infusion Last Infusion: 08/29/20 20:36 Dose: 0 mls/hr Documented by: Propofol (Diprivan) 1,000 mg in 100 mls @ 19.224 mls/hr CONT INF .Q5H13M [facility]; Protocol Last Titration: 09/02/20 07:00 Dose: 20 mcg/kg/min, 9.6 mls/hr Documented by: Fentanyl Citrate 1,000 mcg/ (Sodium Chloride) 100 mls @ 20 mls/hr CONT INF .Q5H [facility]; Protocol Last Titration: 09/02/20 07:00 Dose: 100 mcg/hr, 10 mls/hr Documented by: Norepinephrine Bitartrate 8 mg (/ Sodium Chloride) 250 mls @ 9.375 mls/hr CONT INF .[id number] [facility]; Protocol Last Titration: 09/02/20 07:00 Dose: 20 mcg/min, 37.5 mls/hr Documented by: Pantoprazole Sodium 40 mg/ (Sodium Chloride) 110 mls @ 330 mls/hr IV Q24 [facility] Enteral Nutritional Formula (Vital Af 1.2 Maury Liquid) 1,000 mls @ 30 mls/hr GT .[id number] [facility] Lorazepam (Lorazepam 2 Mg/Ml Syringe) 0.5 mg IV Q6H PRN PRN PRN Reason: ANXIETY/AGITATION Last Admin: 08/31/20 03:11 Dose: 0.5 mg Documented by: Melatonin (Melatonin 3 Mg Tablet) 3 mg GT QHS PRN PRN PRN Reason: INSOMNIA Miscellaneous Information (Inhaler, Assist Devices 1 Each Spacer) 1 each INHALATION PRN PRN PRN Reason: WITH ALBUTEROL MDI Montelukast Sodium (Montelukast 10 Mg Tablet) 10 mg GT QHS [facility] Ondansetron HCl (Ondansetron 4 Mg/2 Ml Vial) 4 mg IV Q8H PRN PRN PRN Reason: NAUSEA/VOMITING Last Admin: 08/30/20 21:56 Dose: 4 mg Documented by: Quetiapine Fumarate (Quetiapine 100 Mg Tablet) 100 mg GT BID [facility] Last Admin: 09/02/20 08:25 Dose: 100 mg Documented by: Senna/Docusate Sodium (Senna/Docusate Sodium 1 Tablet) 1 tablet GT BID PRN PRN Reason: Constipation Sodium Chloride (0.9% Saline Lock 10 Ml Syringe) 10 - 40 ml IV UD PRN PRN Reason: SALINE FLUSH Last Admin: 09/02/20 05:46 Dose: 30 ml Documented by: Throat Lozenges (Benzocaine/Menthol 1 Lozenge) 1 lozenge MUCOUS MEM Q2H PRN PRN PRN Reason: SORE THROAT - Past Medical History Past Medical History (Chronic Problems): Chronic Problems (Last Reviewed 08/23/20 @ 14:[address] David Crow DO) Rapid palpitations (Chronic) Tachyarrhythmia (Chronic) short runs per holter 2019 Essential hypertension (Chronic) Hyperlipidemia (Chronic) - Past Surgical History Surgical History: no surgical history - Social History Smoking Status: Former smoker - Family History Maternal Family History: Family History (Last Reviewed 08/23/20 @ 14:[address] David Crow DO) Mother Cancer Pacemaker Father Cancer Brother Hypertension Cancer Son Diabetes Hypertension Enlarged heart Sister Heart valve replaced Review of Systems Eyes: Reports: - - Patient is intubated so review of systems cannot be obtained Patient Problems: Active and Suspected Problems (Last Reviewed 08/23/20 @ 14:[address] David Crow DO) COVID-19 (Acute) Hypoxia (Acute) - Physical Exam Vitals/I&O's: Vital Signs Temp Pulse Resp BP Pulse Ox 98 F 89 27 H 96/61 91 09/02/20 04:00 09/02/20 10:17 09/02/20 10:17 09/02/20 06:00 09/02/20 10:17 Oxygen Flow Rate (L/min) 70 Oxygen Delivery Method Mechanical Ventilator Weight: 80.1 kg Body Mass Index (BMI) 26.0 Intake and Output for Last 24 Hours 08/31/20 09/01/20 09/02/20 23:59 23:59 23:59 Intake Total 825.60 / 825.60 921.23 / 934.60 478.29 / 478.29 Output Total 1065 / 1090 439 / 464 201 / 201 Balance -239.40 / -264.40 482.23 / 470.60 277.29 / 277.29 General: - - Physical examination was deferred to preserve PPE and to prevent f urther transmission of COVID-19 Laboratory Results 09/01/20 12:15: Total Creatine Kinase 46, Triglycerides 364 H 09/01/20 15:36: Specimen Type ART, Sample Site R Radial, pH 7.29 L, Bicarbonate Actual 21.3 L, Total CO2 23, Base Excess -5 L, O2 Saturation 86 L, O2 % 100, ABG pCO2 44.7, ABG pO2 59 L, Vidal Test Positive, Respiration Rate 14, O2 Delivery Device Adult Vent, Vent Mode AC, Tidal Volume 450, POC PEEP 16 09/01/20 16:55: Specimen Type ART, Sample Site R Radial, pH 7.36, Bicarbonate Actual 22.3, Total CO2 24, Base Excess -3 L, O2 Saturation 85 L, O2 % 100, ABG pCO2 39.7, ABG pO2 52 L, Vidal Test Positive, O2 Delivery Device Adult Vent, Vent Mode BiLevel 09/02/20 05:04: Specimen Type ART, Sample Site L Radial, pH 7.38, Bicarbonate Actual 21.2 L, Total CO2 22, Base Excess -4 L, O2 Saturation 93 L, O2 % 100, ABG pCO2 36.2, ABG pO2 68 L, Vidal Test Positive, Respiration Rate 12, O2 Delivery Device Adult Vent, Vent Mode BiLevel 09/02/20 05:20: PT 18.1 H, INR 1.6 09/02/20 05:40: WBC 21.0 H, RBC 3.95 L, Hgb 12.0 L, Hct 38.6 L, MCV 97.7 H, MCH 30.4, MCHC 31.1 L, RDW Std Deviation 54.3 H, RDW Coeff of Renzo 15.1 H, Plt Count 385, MPV 11.6, Immature Gran % (Auto) 1.500 H, Neut % (Auto) 92.7 H, Lymph % (Auto) 2.7 L, Rock % (Auto) 3.0, Eos % (Auto) 0.0, Baso % (Auto) 0.1, Absolute Neuts (auto) 19.4 H, Absolute Lymphs (auto) 0.57 L, Nucleated RBC % 0.1, Differential Comment SCANNED 09/02/20 05:40: Sodium 141, Potassium 4.6, Chloride 104, Carbon Dioxide 22.0, Anion Gap 15, BUN 126 H*, Creatinine 4.54 H, Estim Creat Clear Calc 16.44, Est GFR (MDRD) Af Amer 17 L, Est GFR (MDRD) Non-Af 14 L, BUN/Creatinine Ratio 27.8 H , Glucose 195 H, Calcium 7.9 L, Phosphorus 8.7 H, Magnesium 3.9 H 09/02/20 11:28: POC Glucose 177 H Current Medications Acetaminophen (Acetaminophen 650 Mg/20 Ml Udc) 650 mg GT Q6H PRN PRN PRN Reason: Pain Score 1-10/Temp > 100.7 F Albuterol Sulfate (Albuterol Sulfate 18 Gm Inhaler (200 Puffs)) 2 puff IH Q4H PRN PRN PRN Reason: SOB or wheezing Last Admin: 08/29/20 11:47 Dose: 2 puff Documented by: Aspirin (Aspirin 81 Mg Tab.Chew) 81 mg GT DAILY [facility] Atorvastatin Calcium (Atorvastatin Calcium 40 Mg Tablet) 40 mg GT QHS [facility] Dexamethasone (Dexamethasone 4 Mg Tablet) 6 mg GT QAM [facility] Stop: 09/03/20 23:30 Enoxaparin Sodium (Enoxaparin 30 Mg/0.3 Ml Syringe) 30 mg SC DAILY [facility] Fluticasone Propionate (Fluticasone 0.05% 1 [place] Nasal.Sry) 1 spray NASAL DAILY PRN PRN PRN Reason: congestion Furosemide (Furosemide 40 Mg/4 Ml Vial) 40 mg IV DAILY [facility] Last Admin: 09/01/20 14:31 Dose: Not Given Documented by: Guaifenesin (Guaifenesin 10 Ml Udc (200mg/10ml)) 20 ml GT Q4H PRN PRN PRN Reason: COUGH Heparin Sodium (Porcine) (Heparin 10,000 Units/10 Ml Vial) 2,600 units IV DAILY PRN PRN Reason: DIALYSIS Sodium Chloride () 250 mls @ 15 mls/hr IV .[id number] PRN PRN Reason: Saline Flush Sodium Chloride () 250 mls @ 15 mls/hr IV .[id number] PRN PRN Reason: Additional IVPB Infusion Last Infusion: 08/29/20 20:36 Dose: 0 mls/hr Documented by: Propofol (Diprivan) 1,000 mg in 100 mls @ 19.224 mls/hr CONT INF .Q5H13M [facility]; Protocol Last Titration: 09/02/20 07:00 Dose: 20 mcg/kg/min, 9.6 mls/hr Documented by: Fentanyl Citrate 1,000 mcg/ (Sodium Chloride) 100 mls @ 20 mls/hr CONT INF .Q5H [facility]; Protocol Last Titration: 09/02/20 07:00 Dose: 100 mcg/hr, 10 mls/hr Documented by: Norepinephrine Bitartrate 8 mg (/ Sodium Chloride) 250 mls @ 9.375 mls/hr CONT INF .[id number] [facility]; Protocol Last Titration: 09/02/20 07:00 Dose: 20 mcg/min, 37.5 mls/hr Documented by: Pantoprazole Sodium 40 mg/ (Sodium Chloride) 110 mls @ 330 mls/hr IV Q24 [facility] Enteral Nutritional Formula (Vital Af 1.2 [place] Liquid) 1,000 mls @ 30 mls/hr GT .[id number] [facility] Lorazepam (Lorazepam 2 Mg/Ml Syringe) 0.5 mg IV Q6H PRN PRN PRN Reason: ANXIETY/AGITATION Last Admin: 08/31/20 03:11 Dose: 0.5 mg Documented by: Melatonin (Melatonin 3 Mg Tablet) 3 mg GT QHS PRN PRN PRN Reason: INSOMNIA Miscellaneous Information (Inhaler, Assist Devices 1 Each Spacer) 1 each INHALATION PRN PRN PRN Reason: WITH ALBUTEROL MDI Montelukast Sodium (Montelukast 10 Mg Tablet) 10 mg GT QHS [facility] Ondansetron HCl (Ondansetron 4 Mg/2 Ml Vial) 4 mg IV Q8H PRN PRN PRN Reason: NAUSEA/VOMITING Last Admin: 08/30/20 21:56 Dose: 4 mg Documented by: Quetiapine Fumarate (Quetiapine 100 Mg Tablet) 100 mg GT BID [facility] Last Admin: 09/02/20 08:25 Dose: 100 mg Documented by: Senna/Docusate Sodium (Senna/Docusate Sodium 1 Tablet) 1 tablet GT BID PRN PRN Reason: Constipation Sodium Chloride (0.9% Saline Lock 10 Ml Syringe) 10 - 40 ml IV UD PRN PRN Reason: SALINE FLUSH Last Admin: 09/02/20 05:46 Dose: 30 ml Documented by: Throat Lozenges (Benzocaine/Menthol 1 Lozenge) 1 lozenge MUCOUS MEM Q2H PRN PRN PRN Reason: SORE THROAT Assessment/Plan All Active Problems (Last Reviewed 08/23/20 @ 14:[address] David Crow, DO) COVID-19 (Acute) Hypoxia (Acute) GIOVANNI likely ATN with shock and COVID-19 Hyperphosphatemia Hypermagnesemia Acute respiratory failure secondary to COVID-19 pneumonia s/p intubation Shock I discussed with the son Bernabe Wu over the phone and major risks and benefits of dialysis including but not limited to infection seizures heart attack stroke were discussed with the son who agrees to proceed with dialysis and dialysis catheter placement. I also discussed with Dr. Oglesby the attending for the patient. Hyperphosphatemia and hypomagnesemia should correct with dialysis the patient is oliguric. Check UA FENA renal ultrasound. Avoid nephrotoxins. dose medications per pharmacy.
--- NOTE | 2020-09-02 12:16 | PCM.OPRPT ---
Report of Operation Date of Procedure: 09/02/20 Pre-Operative Diagnosis: Temporary hemodialysis catheter insertion Surgery/Procedure Performed:: Temporary hemodialysis catheter Description of Surgical Findings:: Temporary hemodialysis catheter line placement procedure note Indication: Hemodialysis Procedure: A time-out was completed to verify correct patient, indication, medication allergies, procedure, coagulation studies, informed consent signed, and equipment needed. The patient was placed in the supine position for a central line placement to the rt/left IJ rt/left femoral vein. The patients left neck was prepped using chlorhexidine and a full body sterile drape was applied. 1% lidocaine was used to anesthetize the surrounding skin. A 12fr 20 cm temporary hemodialysis catheter introduced into the internal jugular vein using the modified Seldinger technique with the assistance of ultrasound. The site was dilated up twice in a stepwise fashion. The catheter was threaded smoothly over the guidewire, the guidewire was removed easily, nonpulsatile blood returned. All ports were aspirated of air and flushed with sterile saline, then locked with U 1000 heparin 1.4 mL for port. The catheter was sutured in place and covered with an occlusive dressing impregnated with chlorhexidine. Post-procedure: The patient tolerated the procedure well. Vital signs remained stable. EBL 5 cc. No complications. Chest X Ray ordered to confirm tip placement and the absence of pneumothorax. Procedures: [id number] Insert Non-tunnel CV Cath
[2020-09-02] MEDS: Furosemide 40 MG/4 ML Vial IV (12:17)
[2020-09-02] MEDS: Enoxaparin 30 MG/0.3 ML Syringe SC (12:18)
[2020-09-02] MEDS: Aspirin 81 MG TAB.CHEW GT (12:20)
--- NOTE | 2020-09-02 12:20 | RAD_ITS ---
STUDY: X-RAY CHEST REASON FOR EXAM: Male, 64 years old. DIALYSIS CATHETER LINE PLACEMENT TECHNIQUE: Single AP portable view of the chest. COMPARISON: Comparison is made with prior study done earlier today. FINDINGS: A left-sided temporary dialysis catheter has been placed with the tip in the mid portion of the superior vena cava. The remainder of the examination is unchanged. RAD/CXR for Line Placement IMPRESSION: The tip of the left temporary dialysis catheter is in the midportion of the superior vena cava. Electronically Signed: Mart Navarro, at 12:48 EST , Service support ,
[2020-09-02] MEDS: dexAMETHasone 4 MG Tablet 6 MG GT (12:21)
--- NOTE | 2020-09-02 12:50 | US_ITS ---
STUDY: RENAL ULTRASOUND - COMPLETE REASON FOR EXAM: Male, 64 years old. Acute kidney injury TECHNIQUE: Ultrasound evaluation of the kidneys was performed with real-time and static haddad-scale imaging. COMPARISON: None. FINDINGS: RIGHT KIDNEY: Right kidney is not visualized. DISTAL RIGHT URETER: Right ureter is not visualized. LEFT KIDNEY: Left kidney is not visualized DISTAL LEFT URETER: Left ureter is not visualized US/Kidney and Bladder IMPRESSION: Nonvisualization of bilateral kidneys Electronically Signed: James Manning MD at 2:12 EST Tel , Service support ,
--- NOTE | 2020-09-02 14:24 | PN_ITS ---
Patient Problems: Active and Suspected Problems (Last Reviewed 08/23/20 @ 14:[address] David Crow, DO) COVID-19 (Acute) Hypoxia (Acute) Subjective: Patient was seen and examined today in ICU, he was intubated yesterday morning due to declining respiratory status, since then his labs today show declining renal function, patient has had no urine output and nephrology has been consulted for dialysis. I briefly talked with the daughter today and she was going to talk with her brother, she called back later to state that they were in favor of dialysis if the patient needed it. Patient is currently on pressor agents - Physical Exam Vitals/I&O's: Vital Signs Temp Pulse Resp BP Pulse Ox 98 F 89 27 H 128/63 H 91 09/02/20 04:00 09/02/20 10:17 09/02/20 10:17 09/02/20 12:00 09/02/20 10:17 Oxygen Flow Rate (L/min) 70 Oxygen Delivery Method Mechanical Ventilator Weight: 80.1 kg Body Mass Index (BMI) 26.0 Intake and Output for Last 24 Hours 08/31/20 09/01/20 09/02/20 23:59 23:59 23:59 Intake Total 825.60 / 825.60 921.23 / 934.60 779.41 / 779.41 Output Total 1065 / 1090 439 / 464 201 / 201 Balance -239.40 / -264.40 482.23 / 470.60 578.41 / 578.41 General: - - Patient is sedated on the ventilator at this time HEENT: Atraumatic, PERRLA, Normocephalic Oral: Moist Mucosa Neck: Supple, No JVD, Trachea Midline, Thyroid Normal Size and Texture Lungs: Normal air movement, No rhonchi, No wheeze, Rhonchi - Occasional scattered expiratory rhonchi Cardiovascular: Regular rate, Regular Rhythm, Normal S1, Normal S2, No murmurs, PMI Normal, No rub noted, No Gallop Abdomen: Bowel Sounds Present, Soft, Non Tender, Non-Distended Extremities: No clubbing, No cyanosis, No edema, Capillary Refill Less than 3 Seconds Skin: No rashes, No breakdown Neurological: Cranial nerves II-XII grossly intact, - - Patient is sedated on the ventilator Psych/Mental Status: - - Patient is sedated on the ventilator Laboratory Results 09/01/20 15:36: Specimen Type ART, Sample Site R Radial, pH 7.29 L, Bicarbonate Actual 21.3 L, Total CO2 23, Base Excess -5 L, O2 Saturation 86 L, O2 % 100, ABG pCO2 44.7, ABG pO2 59 L, Vidal Test Positive, Respiration Rate 14, O2 Delivery Device Adult Vent, Vent Mode AC, Tidal Volume 450, POC PEEP 16 09/01/20 16:55: Specimen Type ART, Sample Site R Radial, pH 7.36, Bicarbonate Actual 22.3, Total CO2 24, Base Excess -3 L, O2 Saturation 85 L, O2 % 100, ABG pCO2 39.7, ABG pO2 52 L, Vidal Test Positive, O2 Delivery Device Adult Vent, Vent Mode BiLevel 09/02/20 05:04: Specimen Type ART, Sample Site L Radial, pH 7.38, Bicarbonate Actual 21.2 L, Total CO2 22, Base Excess -4 L, O2 Saturation 93 L, O2 % 100, ABG pCO2 36.2, ABG pO2 68 L, Vidal Test Positive, Respiration Rate 12, O2 Delivery Device Adult Vent, Vent Mode BiLevel 09/02/20 05:20: PT 18.1 H, INR 1.6 09/02/20 05:40: WBC 21.0 H, RBC 3.95 L, Hgb 12.0 L, Hct 38.6 L, MCV 97.7 H, MCH 30.4, MCHC 31.1 L, RDW Std Deviation 54.3 H, RDW Coeff of Renzo 15.1 H, Plt Count 385, MPV 11.6, Immature Gran % (Auto) 1.500 H, Neut % (Auto) 92.7 H, Lymph % (Auto) 2.7 L, Tucker % (Auto) 3.0, Eos % (Auto) 0.0, Baso % (Auto) 0.1, Absolute Neuts (auto) 19.4 H, Absolute Lymphs (auto) 0.57 L, Nucleated RBC % 0.1, Differential Comment SCANNED 09/02/20 05:40: Sodium 141, Potassium 4.6, Chloride 104, Carbon Dioxide 22.0, Anion Gap 15, BUN 126 H*, Creatinine 4.54 H, Estim Creat Clear Calc 16.44, Est GFR (MDRD) Af Amer 17 L, Est GFR (MDRD) Non-Af 14 L, BUN/Creatinine Ratio 27.8 H , Glucose 195 H, Calcium 7.9 L, Phosphorus 8.7 H, Magnesium 3.9 H 09/02/20 11:28: POC Glucose 177 H Current Medications Acetaminophen (Acetaminophen 650 Mg/20 Ml Udc) 650 mg GT Q6H PRN PRN PRN Reason: Pain Score 1-10/Temp > 100.7 F Albuterol Sulfate (Albuterol Sulfate 18 Gm Inhaler (200 Puffs)) 2 puff IH Q4H PRN PRN PRN Reason: SOB or wheezing Last Admin: 08/29/20 11:47 Dose: 2 puff Documented by: Aspirin (Aspirin 81 Mg Tab.Chew) 81 mg GT DAILY [facility] Last Admin: 09/02/20 12:20 Dose: 81 mg Documented by: Atorvastatin Calcium (Atorvastatin Calcium 40 Mg Tablet) 40 mg GT QHS [facility] Dexamethasone (Dexamethasone 4 Mg Tablet) 6 mg GT QAM [facility] Stop: 09/03/20 23:30 Last Admin: 09/02/20 12:21 Dose: 6 mg Documented by: Enoxaparin Sodium (Enoxaparin 30 Mg/0.3 Ml Syringe) 30 mg SC DAILY [facility] Last Admin: 09/02/20 12:18 Dose: 30 mg Documented by: Fluticasone Propionate (Fluticasone 0.05% 1 [place] Nasal.Sry) 1 spray NASAL DAILY PRN PRN PRN Reason: congestion Furosemide (Furosemide 40 Mg/4 Ml Vial) 40 mg IV DAILY [facility] Last Admin: 09/02/20 12:17 Dose: 40 mg Documented by: Guaifenesin (Guaifenesin 10 Ml Udc (200mg/10ml)) 20 ml GT Q4H PRN PRN PRN Reason: COUGH Heparin Sodium (Porcine) (Heparin 10,000 Units/10 Ml Vial) 2,600 units IV DAILY PRN PRN Reason: DIALYSIS Sodium Chloride () 250 mls @ 15 mls/hr IV .[id number] PRN PRN Reason: Saline Flush Sodium Chloride () 250 mls @ 15 mls/hr IV .[id number] PRN PRN Reason: Additional IVPB Infusion Last Infusion: 08/29/20 20:36 Dose: 0 mls/hr Documented by: Propofol (Diprivan) 1,000 mg in 100 mls @ 19.224 mls/hr CONT INF .Q5H13M [facility]; Protocol Last Titration: 09/02/20 12:00 Dose: 20 mcg/kg/min, 9.6 mls/hr Documented by: Fentanyl Citrate 1,000 mcg/ (Sodium Chloride) 100 mls @ 20 mls/hr CONT INF .Q5H [facility]; Protocol Last Titration: 09/02/20 12:00 Dose: 100 mcg/hr, 10 mls/hr Documented by: Norepinephrine Bitartrate 8 mg (/ Sodium Chloride) 250 mls @ 9.375 mls/hr CONT INF .[id number] [facility]; Protocol Last Admin: 09/02/20 12:53 Dose: 20 mcg/min, 37.5 mls/hr Documented by: Pantoprazole Sodium 40 mg/ (Sodium Chloride) 110 mls @ 330 mls/hr IV Q24 [facility] Enteral Nutritional Formula (Vital Af 1.2 Maury Liquid) 1,000 mls @ 30 mls/hr GT .[id number] [facility] Lorazepam (Lorazepam 2 Mg/Ml Syringe) 0.5 mg IV Q6H PRN PRN PRN Reason: ANXIETY/AGITATION Last Admin: 08/31/20 03:11 Dose: 0.5 mg Documented by: Melatonin (Melatonin 3 Mg Tablet) 3 mg GT QHS PRN PRN PRN Reason: INSOMNIA Miscellaneous Information (Inhaler, Assist Devices 1 Each Spacer) 1 each INHALATION PRN PRN PRN Reason: WITH ALBUTEROL MDI Montelukast Sodium (Montelukast 10 Mg Tablet) 10 mg GT QHS [facility] Ondansetron HCl (Ondansetron 4 Mg/2 Ml Vial) 4 mg IV Q8H PRN PRN PRN Reason: NAUSEA/VOMITING Last Admin: 08/30/20 21:56 Dose: 4 mg Documented by: Quetiapine Fumarate (Quetiapine 100 Mg Tablet) 100 mg GT BID [facility] Last Admin: 09/02/20 08:25 Dose: 100 mg Documented by: Senna/Docusate Sodium (Senna/Docusate Sodium 1 Tablet) 1 tablet GT BID PRN PRN Reason: Constipation Sodium Chloride (0.9% Saline Lock 10 Ml Syringe) 10 - 40 ml IV UD PRN PRN Reason: SALINE FLUSH Last Admin: 09/02/20 05:46 Dose: 30 ml Documented by: Throat Lozenges (Benzocaine/Menthol 1 Lozenge) 1 lozenge MUCOUS MEM Q2H PRN PRN PRN Reason: SORE THROAT Medical Necessity - Tobacco Use Smoking Status: Former smoker Tobacco Use: Cigarettes, Chew Assessment/Plan All Active Problems (Last Reviewed 08/23/20 @ 14:[address] David Crow, DO) COVID-19 (Acute) Hypoxia (Acute) #1 acute COVID-19 multi lobar pneumonia-continue present treatment per infec tious diseases, patient is no longer on remdesivir, he remains on dexamethasone. #2 acute hypoxic respiratory failure-patient is currently on the ventilator at this time #3 acute renal failure probably secondary to ATN-patient will be dialyzed today #4 Shock-possibly secondary to medications for ventilator sedation, continue to monitor blood pressure #5 hyperlipidemia #6 pneumomediastinum-secondary to CPAP usage, continue to monitor Inpatient E&M: [id number] Subs Hosp L2
[2020-09-02] MEDS: Propofol 10MG/Ml 1,000 MG/100 ML Bottle 9.6 MG CONT INF ×2 (16:36→20:30)
--- NOTE | 2020-09-02 17:18 | DIALYSIS ---
Hemodialysis today first tx Ran even no fluid removed. Pt tolerated tx fair. Hypotensive throoughout tx. Report to [facility]. Pt stable
[2020-09-02] MEDS: Atorvastatin Calcium 40 MG Tablet GT (20:21)
[2020-09-02] MEDS: Montelukast 10 MG Tablet GT (20:21)
[2020-09-03] VITALS (60 sets, daily range): BP systolic 55–160; BP diastolic 36–106; PULSE 7–129; RESP 12–46; TEMP 36.6–37.3; O2SAT 68–95; BMI 26.3
[2020-09-03 02:37] LABS: Color, Urine Yellow (Yellow); Glucose, Dipstick Normal (Normal); Ketone-Dipstick Negative (Negative); Leukocyte Esterase-Dipstick 25 /ul (Negative); Mucous, Urine 0 SEEN /hpf (<or=2+); Nitrite-Dipstick Negative (Negative); Occult Blood-Urine 150 /ul (Negative); Protein-Dipstick 30 mg/dl (Negative); Urine Bilirubin Dipstick Negative (Negative); Urine Clarity Clear (Clear); Urine Urobilinogen Normal (Normal)
[2020-09-03 02:45] LABS: Bacteria RARE /hpf (None Seen); Red Blood Cells-Urine 5-10 SEEN /hpf (0-5); Squamous Epithelial Cells - UA 0-5 SEEN /hpf (0-5); White Blood Cells 5-10 SEEN /hpf (0-5)
[2020-09-03 02:47] LABS: Urine Sodium 59 mmol/L (Not Establ.)
[2020-09-03] MEDS: Propofol 10MG/Ml 1,000 MG/100 ML Bottle 9.6 MG CONT INF ×2 (03:55→11:23)
[2020-09-03 04:39] LABS: Anion Gap 13 (5-15); BUN 99 mg/dL (7-18); BUN/Creat Ratio 22.1 RATIO (10-20); Calcium,Total 7.7 mg/dL (8.5-10.1); Chloride 101 mmol/L (98-107); Creatinine, Serum 4.48 mg/dL (0.70-1.30); EST Glomerular Filtration Rate 14 mL/min (>60); Est Glom Filt Rate - Afr Amer 17 mL/min (>60); Estimated Creatinine Clearance 16.66 ml/min; Glucose 148 mg/dL (74-106); Potassium 4.4 mmol/L (3.5-5.1); Sodium Level 136 mmol/L (136-145)
[2020-09-03 04:42] LABS: Absolute Lymphocyte Count 0.57 X10^3/uL (0.83-4.51); Absolute Neutrophil Count 23.5 X10^3/uL (2.0-7.7); Basophil# 0.05 X10^3/uL; Basophil% 0.2 % (0-1); Eosinophil# 0.01 X10^3/uL; Hematocrit 36.7 % (40-54); Hemoglobin 11.6 g/dL (13.0-16.5); Lymphocyte # 0.57 X10^3/ul (4.0); Lymphocyte % 2.3 % (19-41); Mean Corp Hgb Conc 31.6 g/dL (32-36); Mean Corpuscular Hgb 30.6 pg (27.0-32.0); Mean Corpuscular Volume 96.8 fL (80-94); Monocyte# 0.82 X10^3/uL; Monocyte% 3.2 % (0-10); NRBC Flagged by Analyzer 0 % (0-5); Neutrophil # 23.46 X10^3/uL (2.7-7.7); POSITIVE DIFFERENTIAL YES; Platelet Count 290 K/mm3 (150-450); RBC Distribution Width CV 15.1 % (11.6-14.6); RBC Distribution Width SD 53.5 fl (35.1-43.9); Red Blood Count 3.79 M/mm3 (4.6-6.2); White Blood Count 25.3 K/mm3 (4.4-11.0)
[2020-09-03 05:10] LABS: Differential Indicated SCAN CRITERIA MET
[2020-09-03 05:15] LABS: Allen Test Positive; Base Excess -4 mmol/L (-2 to +2); Blood Gas Specimen Type ART; FI02 85; Mode BiLevel; O2 Delivery Device Adult Vent; PO2 60 mmHG (75-100); RR 12; SITE R Radial; SO2 90 % (95-99); Total Carbon Dioxide 22 mmol/L; pH 7.37 (7.35-7.45)
[2020-09-03 05:26] LABS: Differential Comment SCANNED
--- NOTE | 2020-09-03 07:24 | PCM.PN.INT ---
Subjective: Patient did okay overnight. Patient was able to come down on FiO2 briefly in the evening, but had a desaturation event and required several hours to recruit following vent dyssynchrony. Patient did tolerate hemodialysis yesterday. General: Alert, Cooperative, No apparent distress, - - Good vent synchrony. HEENT: Atraumatic, PERRLA, EOMI, Normocephalic, - - No scleral icterus or injection noted Oral: Moist Mucosa, No Gingival or Mucosal Lesions/ Ulcerations Neck: Supple, No Nodes, Trachea Midline, - - IJ dialysis catheter clean, dry and intact. Lungs: No rhonchi, No wheeze, No rales, Diminished, - - Crepitus persists bilateral pectorals Cardiovascular: Normal S1, Normal S2, No murmurs, No rub noted, No Gallop, Tachycardic Abdomen: Bowel Sounds Present, Soft, Non Tender, Non-Distended, Obese Extremities: No clubbing, No cyanosis, Edema Skin: No rashes, No breakdown Musculoskeletal: No Tenderness to Palpation of Joints or Extremities Lymphatic: No Cervical, Supraclavicular, or Inguinal Adenopathy Neurological: Cranial nerves II-XII grossly intact, Neuro grossly intact, Motor Exam 5/5 strength throughout Psych/Mental Status: Appropriate, Flat Affect Vital Signs Temp Pulse Resp BP Pulse Ox 37.1 C 74 17 129/66 H 91 09/03/20 04:00 09/03/20 07:08 09/03/20 07:08 09/03/20 06:00 09/03/20 07:08 Oxygen Flow Rate (L/min) 70 Oxygen Delivery Method Mechanical Ventilator Weight: 80.9 kg Body Mass Index (BMI) 26.0 Intake and Output for Last 24 Hours 09/01/20 09/02/20 09/03/20 23:59 23:59 23:59 Intake Total 921.23 / 934.60 1867.28 / 1943.18 593.71 / 593.71 Output Total 439 / 464 426 / 451 145 / 145 Balance 482.23 / 470.60 1441.28 / 1492.18 448.71 / 448.71 Labs (Last 48 Hours) 09/01/20 09/01/20 09/01/20 04:10 04:10 11:33 WBC 15.0 H RBC 4.02 L Hgb 12.4 L Hct 39.4 L MCV 98.0 H MCH 30.8 MCHC 31.5 L RDW Std Deviation 53.0 H RDW Coeff of Renzo 14.8 H Plt Count 332 MPV 12.0 Immature Gran % (Auto) 1.400 H Neut % (Auto) 91.0 H Lymph % (Auto) 4.3 L [place] % (Auto) 2.7 Eos % (Auto) 0.3 Baso % (Auto) 0.3 Absolute Neuts (auto) 13.7 H Absolute Lymphs (auto) 0.64 L Nucleated RBC % 0 Differential Comment PT INR Specimen Type ART Sample Site R Radial pH 7.22 L Bicarbonate Actual 23.4 Total CO2 25 Base Excess -4 L O2 Saturation 98 O2 % 100 ABG pCO2 57.6 H ABG pO2 121 H Vidal Test Respiration Rate 14 O2 Delivery Device Adult Vent Vent Mode AC Tidal Volume 450 POC PEEP 12 Sodium 141 Potassium 4.0 Chloride 105 Carbon Dioxide 25.0 Anion Gap 11 BUN 85 H Creatinine 2.01 H Estim Creat Clear Calc 37.13 Est GFR (MDRD) Af Amer 43 L Est GFR (MDRD) Non-Af 36 L BUN/Creatinine Ratio 42.3 H Glucose 142 H Calcium 9.4 Phosphorus 7.6 H Magnesium 3.8 H Total Creatine Kinase Triglycerides Urine Color Urine Clarity Urine pH Ur Specific [place] Urine Protein Urine Glucose (UA) Urine Ketones Urine Occult Blood Urine Nitrite Urine Bilirubin Urine Urobilinogen Ur Leukocyte Esterase Urine RBC Urine WBC Ur Squamous Epith Cells Urine Bacteria Urine Mucus Ur Random Sodium Urine Creatinine POC Glucose 09/01/20 09/01/20 09/01/20 12:15 15:36 16:55 WBC RBC Hgb Hct MCV MCH MCHC RDW Std Deviation RDW Coeff of Renzo Plt Count MPV Immature Gran % (Auto) Neut % (Auto) Lymph % (Auto) [place] % (Auto) Eos % (Auto) Baso % (Auto) Absolute Neuts (auto) Absolute Lymphs (auto) Nucleated RBC % Differential Comment PT INR Specimen Type ART ART Sample Site R Radial R Radial pH 7.29 L 7.36 Bicarbonate Actual 21.3 L 22.3 Total CO2 23 24 Base Excess -5 L -3 L O2 Saturation 86 L 85 L O2 % 100 100 ABG pCO2 44.7 39.7 ABG pO2 59 L 52 L Vidal Test Positive Positive Respiration Rate 14 O2 Delivery Device Adult Vent Adult Vent Vent Mode AC BiLevel Tidal Volume 450 POC PEEP 16 Sodium Potassium Chloride Carbon Dioxide Anion Gap BUN Creatinine Estim Creat Clear Calc Est GFR (MDRD) Af Amer Est GFR (MDRD) Non-Af BUN/Creatinine Ratio Glucose Calcium Phosphorus Magnesium Total Creatine Kinase 46 Triglycerides 364 H Urine Color Urine Clarity Urine pH Ur Specific [place] Urine Protein Urine Glucose (UA) Urine Ketones Urine Occult Blood Urine Nitrite Urine Bilirubin Urine Urobilinogen Ur Leukocyte Esterase Urine RBC Urine WBC Ur Squamous Epith Cells Urine Bacteria Urine Mucus Ur Random Sodium Urine Creatinine POC Glucose 09/02/20 09/02/20 09/02/20 05:04 05:20 05:40 WBC 21.0 H RBC 3.95 L Hgb 12.0 L Hct 38.6 L MCV 97.7 H MCH 30.4 MCHC 31.1 L RDW Std Deviation 54.3 H RDW Coeff of Renzo 15.1 H Plt Count 385 MPV 11.6 Immature Gran % (Auto) 1.500 H Neut % (Auto) 92.7 H Lymph % (Auto) 2.7 L [place] % (Auto) 3.0 Eos % (Auto) 0.0 Baso % (Auto) 0.1 Absolute Neuts (auto) 19.4 H Absolute Lymphs (auto) 0.57 L Nucleated RBC % 0.1 Differential Comment SCANNED PT 18.1 H INR 1.6 Specimen Type ART Sample Site L Radial pH 7.38 Bicarbonate Actual 21.2 L Total CO2 22 Base Excess -4 L O2 Saturation 93 L O2 % 100 ABG pCO2 36.2 ABG pO2 68 L Vidal Test Positive Respiration Rate 12 O2 Delivery Device Adult Vent Vent Mode BiLevel Tidal Volume POC PEEP Sodium Potassium Chloride Carbon Dioxide Anion Gap BUN Creatinine Estim Creat Clear Calc Est GFR (MDRD) Af Amer Est GFR (MDRD) Non-Af BUN/Creatinine Ratio Glucose Calcium Phosphorus Magnesium Total Creatine Kinase Triglycerides Urine Color Urine Clarity Urine pH Ur Specific [place] Urine Protein Urine Glucose (UA) Urine Ketones Urine Occult Blood Urine Nitrite Urine Bilirubin Urine Urobilinogen Ur Leukocyte Esterase Urine RBC Urine WBC Ur Squamous Epith Cells Urine Bacteria Urine Mucus Ur Random Sodium Urine Creatinine POC Glucose 09/02/20 09/02/20 09/03/20 05:40 11:28 00:15 WBC RBC Hgb Hct MCV MCH MCHC RDW Std Deviation RDW Coeff of Renzo Plt Count MPV Immature Gran % (Auto) Neut % (Auto) Lymph % (Auto) [place] % (Auto) Eos % (Auto) Baso % (Auto) Absolute Neuts (auto) Absolute Lymphs (auto) Nucleated RBC % Differential Comment PT INR Specimen Type Sample Site pH Bicarbonate Actual Total CO2 Base Excess O2 Saturation O2 % ABG pCO2 ABG pO2 Vidal Test Respiration Rate O2 Delivery Device Vent Mode Tidal Volume POC PEEP Sodium 141 Potassium 4.6 Chloride 104 Carbon Dioxide 22.0 Anion Gap 15 BUN 126 H* Creatinine 4.54 H Estim Creat Clear Calc 16.44 Est GFR (MDRD) Af Amer 17 L Est GFR (MDRD) Non-Af 14 L BUN/Creatinine Ratio 27.8 H Glucose 195 H Calcium 7.9 L Phosphorus 8.7 H Magnesium 3.9 H Total Creatine Kinase Triglycerides Urine Color Yellow Urine Clarity Clear Urine pH 5.0 Ur Specific [place] 1.020 Urine Protein 30 H Urine Glucose (UA) Normal Urine Ketones Negative Urine Occult Blood 150 H Urine Nitrite Negative Urine Bilirubin Negative Urine Urobilinogen Normal Ur Leukocyte Esterase 25 H Urine RBC 5-10 SEEN Urine WBC 5-10 SEEN Ur Squamous Epith Cells 0-5 SEEN Urine Bacteria RARE Urine Mucus 0 SEEN Ur Random Sodium Urine Creatinine POC Glucose 177 H 09/03/20 09/03/20 09/03/20 00:15 04:05 04:05 WBC 25.3 H RBC 3.79 L Hgb 11.6 L Hct 36.7 L MCV 96.8 H MCH 30.6 MCHC 31.6 L RDW Std Deviation 53.5 H RDW Coeff of Renzo 15.1 H Plt Count 290 MPV 12.0 Immature Gran % (Auto) 1.300 H Neut % (Auto) 93.0 H Lymph % (Auto) 2.3 L [place] % (Auto) 3.2 Eos % (Auto) 0.0 Baso % (Auto) 0.2 Absolute Neuts (auto) 23.5 H Absolute Lymphs (auto) 0.57 L Nucleated RBC % 0 Differential Comment SCANNED PT INR Specimen Type Sample Site pH Bicarbonate Actual Total CO2 Base Excess O2 Saturation O2 % ABG pCO2 ABG pO2 Vidal Test Respiration Rate O2 Delivery Device Vent Mode Tidal Volume POC PEEP Sodium 136 Potassium 4.4 Chloride 101 Carbon Dioxide 22.0 Anion Gap 13 BUN 99 H Creatinine 4.48 H Estim Creat Clear Calc 16.66 Est GFR (MDRD) Af Amer 17 L Est GFR (MDRD) Non-Af 14 L BUN/Creatinine Ratio 22.1 H Glucose 148 H Calcium 7.7 L Phosphorus Magnesium Total Creatine Kinase Triglycerides Urine Color Urine Clarity Urine pH Ur Specific [place] Urine Protein Urine Glucose (UA) Urine Ketones Urine Occult Blood Urine Nitrite Urine Bilirubin Urine Urobilinogen Ur Leukocyte Esterase Urine RBC Urine WBC Ur Squamous Epith Cells Urine Bacteria Urine Mucus Ur Random Sodium 59 Urine Creatinine 111.00 POC Glucose 09/03/20 05:11 WBC RBC Hgb Hct MCV MCH MCHC RDW Std Deviation RDW Coeff of Renzo Plt Count MPV Immature Gran % (Auto) Neut % (Auto) Lymph % (Auto) [place] % (Auto) Eos % (Auto) Baso % (Auto) Absolute Neuts (auto) Absolute Lymphs (auto) Nucleated RBC % Differential Comment PT INR Specimen Type ART Sample Site R Radial pH 7.37 Bicarbonate Actual 21.0 L Total CO2 22 Base Excess -4 L O2 Saturation 90 L O2 % 85 ABG pCO2 36.0 ABG pO2 60 L Vidal Test Positive Respiration Rate 12 O2 Delivery Device Adult Vent Vent Mode BiLevel Tidal Volume POC PEEP Sodium Potassium Chloride Carbon Dioxide Anion Gap BUN Creatinine Estim Creat Clear Calc Est GFR (MDRD) Af Amer Est GFR (MDRD) Non-Af BUN/Creatinine Ratio Glucose Calcium Phosphorus Magnesium Total Creatine Kinase Triglycerides Urine Color Urine Clarity Urine pH Ur Specific [place] Urine Protein Urine Glucose (UA) Urine Ketones Urine Occult Blood Urine Nitrite Urine Bilirubin Urine Urobilinogen Ur Leukocyte Esterase Urine RBC Urine WBC Ur Squamous Epith Cells Urine Bacteria Urine Mucus Ur Random Sodium Urine Creatinine POC Glucose Clinical Impression(s) from Imaging Studies Chest X-Ray 09/02/20 07:17 IMPRESSION: Stable examination. Electronically Signed: Mart Navarro, at 10:32 EST , Service support , Chest X-Ray 09/02/20 12:20 IMPRESSION: The tip of the left temporary dialysis catheter is in the midportion of the superior vena cava. Electronically Signed: Mart Navarro, at 12:48 EST , Service support , Renal Ultrasound 09/02/20 12:50 IMPRESSION: Nonvisualization of bilateral kidneys Electronically Signed: James Manning MD at 2:12 EST Tel , Service support , Medical Necessity - Tobacco Use Smoking Status: Former smoker Tobacco Use: Cigarettes, Chew Assessment/Plan All Active Problems (Last Reviewed 08/23/20 @ 14:[address] David Crow, DO) COVID-19 (Acute) Hypoxia (Acute) RECOMMENDATIONS: 1. Continue APRV and wean oxygen as tolerated 2. Obtain chest x-ray if decompensates for evaluation of possible pneumothorax versus worsening pneumomediastinum 3. Continue Decadron 6 mg daily to complete 10 days of treatment. 4. Dialysis per nephrology 5. Continue twice daily Lovenox. 6. Spontaneous breathing and awakening trials per protocol IMPRESSIONS: 1. Acute hypoxemic respiratory failure secondary to COVID-19 pneumonia The patient initially presented to the hospital with Covid-like symptoms that began towards the end of July. The patient thus far has received convalescent plasma and was initially started on remdesivir. However, the remdesivir had to be discontinued due to worsening liver function. Patient was significant worsening in respiratory status over the last 24 to 48 hours. Patient has developed a pneumomediastinum, but crepitus appears to be stable. Will obtain a chest x-ray with any decompensation to evaluate for possible worsening pneumomediastinum versus development of a new pneumothorax. Will attempt to decrease P high later today if able to continue to wean FiO2. 2. Hypertension/hyperlipidemia/GERD Complicates care, management, recovery and prognosis. Continue home medications as indicated. 3. Acute kidney injury Clinical suspicion for worsening in renal function secondary to hypotension associated with intubation and stabilization of hypoxia. Will consult nephrology. Placement of a dialysis catheter could be complicated by pneumomediastinum. 4. Shock Unclear etiology. Patient is requiring significant sedation medications to maintain saturations. Patient also has acute renal failure with significant uremia, along with a pneumomediastinum. No significant cardiac ectopy has been noted. Continue to wean Levophed as tolerated. Likely unable to remove volume with hemodialysis. Doubt adrenal insufficiency given patient's current therapy with Decadron Addendum 6:30 PM: Patient started to have significant difficulties during hemodialysis. Patient was unable to get appropriate flows, but following dialysis was having significant difficulty with oxygenation. Attempts at increasing sedation using Precedex, increasing doses of propofol and fentanyl have been unsuccessful. Patient was switched to assist control with a PEEP of 18. A bis monitor was applied and despite being on 50 of propofol, 150 of fentanyl, Seroquel 150 and Precedex 0.5, patient continues to have a base of 80. Patient's pressors have increased with increasing attempts at sedation. A chest x-ray was obtained showing continued pneumomediastinum, but no pneumothorax. Patient will be initiated on vasopressin. TIME: 175 minutes of critical care time, independent of procedures, was spent addressing the patient's acute hypoxemic respiratory failure, COVID-19 pneumonia, review of all data and collaboration with the care team. (5:20 AM to 6:20 AM, 2 PM to 6:30 PM) 9xxxx: [id number] Critical care first hour Multi Select Codes - Hospitalists' Procedures Procedures: [id number] Critial Care Addl 30 Min - [id number] x 4 for 175 minutes of critical care time total
--- NOTE | 2020-09-03 09:29 | PCM.PN.REN ---
Patient Problems: Active and Suspected Problems (Last Reviewed 08/23/20 @ 14:[address] David Crow, DO) COVID-19 (Acute) Hypoxia (Acute) Subjective: still on pressors - Physical Exam Vitals/I&O's: Vital Signs Temp Pulse Resp BP Pulse Ox 98.7 F 74 17 129/66 H 90 09/03/20 04:00 09/03/20 07:08 09/03/20 07:08 09/03/20 06:00 09/03/20 09:21 Oxygen Flow Rate (L/min) 70 Oxygen Delivery Method Mechanical Ventilator Weight: 80.9 kg Body Mass Index (BMI) 26.0 Intake and Output for Last 24 Hours 09/01/20 09/02/20 09/03/20 23:59 23:59 23:59 Intake Total 921.23 / 934.60 1867.28 / 1943.18 593.71 / 593.71 Output Total 439 / 464 426 / 451 495 / 495 Balance 482.23 / 470.60 1441.28 / 1492.18 98.71 / 98.71 General: - - deferred to preserve PPE and prevent further transmission of covid-19 Laboratory Results 09/02/20 11:28: POC Glucose 177 H 09/03/20 00:15: Urine Color Yellow, Urine Clarity Clear, Urine pH 5.0, Ur Specific [place] 1.020, Urine Protein 30 H, Urine Glucose (UA) Normal, Urine Ketones Negative, Urine Occult Blood 150 H, Urine Nitrite Negative, Urine Bilirubin Negative, Urine Urobilinogen Normal, Ur Leukocyte Esterase 25 H, Urine RBC 5-10 SEEN, Urine WBC 5-10 SEEN, Ur Squamous Epith Cells 0-5 SEEN, Urine Bacteria RARE, Urine Mucus 0 SEEN 09/03/20 00:15: Ur Random Sodium 59, Urine Creatinine 111.00 09/03/20 04:05: WBC 25.3 H, RBC 3.79 L, Hgb 11.6 L, Hct 36.7 L, MCV 96.8 H, MCH 30.6, MCHC 31.6 L, RDW Std Deviation 53.5 H, RDW Coeff of Renzo 15.1 H, Plt Count 290, MPV 12.0, Immature Gran % (Auto) 1.300 H, Neut % (Auto) 93.0 H, Lymph % (Auto) 2.3 L, [place] % (Auto) 3.2, Eos % (Auto) 0.0, Baso % (Auto) 0.2, Absolute Neuts (auto) 23.5 H, Absolute Lymphs (auto) 0.57 L, Nucleated RBC % 0, Differential Comment SCANNED 09/03/20 04:05: Sodium 136, Potassium 4.4, Chloride 101, Carbon Dioxide 22.0, Anion Gap 13, BUN 99 H, Creatinine 4.48 H, Estim Creat Clear Calc 16.66, Est GFR (MDRD) Af Amer 17 L, Est GFR (MDRD) Non-Af 14 L, BUN/Creatinine Ratio 22.1 H, Glucose 148 H, Calcium 7.7 L 09/03/20 05:11: Specimen Type ART, Sample Site R Radial, pH 7.37, Bicarbonate Actual 21.0 L, Total CO2 22, Base Excess -4 L, O2 Saturation 90 L, O2 % 85, ABG pCO2 36.0, ABG pO2 60 L, Vidal Test Positive, Respiration Rate 12, O2 Delivery Device Adult Vent, Vent Mode BiLevel Current Medications Acetaminophen (Acetaminophen 650 Mg/20 Ml Udc) 650 mg GT Q6H PRN PRN PRN Reason: Pain Score 1-10/Temp > 100.7 F Albuterol Sulfate (Albuterol Sulfate 18 Gm Inhaler (200 Puffs)) 2 puff IH Q4H PRN PRN PRN Reason: SOB or wheezing Last Admin: 08/29/20 11:47 Dose: 2 puff Documented by: Aspirin (Aspirin 81 Mg Tab.Chew) 81 mg GT DAILY [facility] Last Admin: 09/02/20 12:20 Dose: 81 mg Documented by: Atorvastatin Calcium (Atorvastatin Calcium 40 Mg Tablet) 40 mg GT QHS [facility] Last Admin: 09/02/20 20:21 Dose: 40 mg Documented by: Dexamethasone (Dexamethasone 4 Mg Tablet) 6 mg GT QAM [facility] Stop: 09/03/20 23:30 Last Admin: 09/02/20 12:21 Dose: 6 mg Documented by: Enoxaparin Sodium (Enoxaparin 30 Mg/0.3 Ml Syringe) 30 mg SC DAILY [facility] Last Admin: 09/02/20 12:18 Dose: 30 mg Documented by: Fluticasone Propionate (Fluticasone 0.05% 1 [place] Nasal.Sry) 1 spray NASAL DAILY PRN PRN PRN Reason: congestion Furosemide (Furosemide 40 Mg/4 Ml Vial) 40 mg IV DAILY [facility] Last Admin: 09/02/20 12:17 Dose: 40 mg Documented by: Guaifenesin (Guaifenesin 10 Ml Udc (200mg/10ml)) 20 ml GT Q4H PRN PRN PRN Reason: COUGH Heparin Sodium (Porcine) (Heparin 10,000 Units/10 Ml Vial) 2,600 units IV DAILY PRN PRN Reason: DIALYSIS Sodium Chloride () 250 mls @ 15 mls/hr IV .[id number] PRN PRN Reason: Saline Flush Sodium Chloride () 250 mls @ 15 mls/hr IV .[id number] PRN PRN Reason: Additional IVPB Infusion Last Infusion: 08/29/20 20:36 Dose: 0 mls/hr Documented by: Propofol (Diprivan) 1,000 mg in 100 mls @ 19.224 mls/hr CONT INF .[id number] [facility]RELL[facility]; Protocol Last Titration: 09/03/20 06:00 Dose: 20 mcg/kg/min, 9.6 mls/hr Documented by: Fentanyl Citrate 1,000 mcg/ (Sodium Chloride) 100 mls @ 20 mls/hr CONT INF .Q5H [facility]RELL[facility]; Protocol Last Titration: 09/03/20 06:00 Dose: 100 mcg/hr, 10 mls/hr Documented by: Norepinephrine Bitartrate 8 mg (/ Sodium Chloride) 250 mls @ 9.375 mls/hr CONT INF .[id number] [facility]; Protocol Last Titration: 09/03/20 06:00 Dose: 25 mcg/min, 46.9 mls/hr Documented by: Pantoprazole Sodium 40 mg/ (Sodium Chloride) 110 mls @ 330 mls/hr IV Q24 [facility] Last Infusion: 09/02/20 17:41 Dose: Infused Documented by: Enteral Nutritional Formula (Vital Af 1.2 [place] Liquid) 1,000 mls @ 30 mls/hr GT .[id number] [facility] Last Admin: 09/02/20 20:47 Dose: Not Given Documented by: Lorazepam (Lorazepam 2 Mg/Ml Syringe) 0.5 mg IV Q6H PRN PRN PRN Reason: ANXIETY/AGITATION Last Admin: 08/31/20 03:11 Dose: 0.5 mg Documented by: Melatonin (Melatonin 3 Mg Tablet) 3 mg GT QHS PRN PRN PRN Reason: INSOMNIA Miscellaneous Information (Inhaler, Assist Devices 1 Each Spacer) 1 each INHALATION PRN PRN PRN Reason: WITH ALBUTEROL MDI Montelukast Sodium (Montelukast 10 Mg Tablet) 10 mg GT QHS [facility] Last Admin: 09/02/20 20:21 Dose: 10 mg Documented by: Ondansetron HCl (Ondansetron 4 Mg/2 Ml Vial) 4 mg IV Q8H PRN PRN PRN Reason: NAUSEA/VOMITING Last Admin: 08/30/20 21:56 Dose: 4 mg Documented by: Quetiapine Fumarate (Quetiapine 100 Mg Tablet) 100 mg GT BID [facility] Last Admin: 09/02/20 20:21 Dose: 100 mg Documented by: Senna/Docusate Sodium (Senna/Docusate Sodium 1 Tablet) 1 tablet GT BID PRN PRN Reason: Constipation Sodium Chloride (0.9% Saline Lock 10 Ml Syringe) 10 - 40 ml IV UD PRN PRN Reason: SALINE FLUSH Last Admin: 09/02/20 05:46 Dose: 30 ml Documented by: Throat Lozenges (Benzocaine/Menthol 1 Lozenge) 1 lozenge MUCOUS MEM Q2H PRN PRN PRN Reason: SORE THROAT Medical Necessity - Tobacco Use Smoking Status: Former smoker Tobacco Use: Cigarettes, Chew Assessment/Plan All Active Problems (Last Reviewed 08/23/20 @ 14:[address] David Crow, DO) COVID-19 (Acute) Hypoxia (Acute) GIOVANNI likely ATN with shock and COVID-19 Hyperphosphatemia Hypermagnesemia Acute respiratory failure secondary to COVID-19 pneumonia s/p intubation Shock check bmp phos mg in am HD today no net UF still on levophed 25 mcg.D/w dr. Jordan no need for UF today. repeat renal ultrasound in 1-2 days first one had nonvisualization of kidneys b/l Avoid nephrotoxins. dose medications per pharmacy.
--- NOTE | 2020-09-03 10:49 | PCM.NTREPORT ---
Nutrition Therapy Report - History Nutrition Services has been consulted to:: Manage enteral nutrition Current diet / nutrition support order:: NPO; vital AF 1.2 30mL bolus q hour w/ 40mL flush q hour - Anthropometric Measurements Height:: 5 ft 9 in Weight:: 80.9 kg Body Mass Index (BMI):: 26.3 - Relevant Labs Relevant Labs:: WBC 25.3 K/mm3 (4.4-11.0) H 09/03/20 04:05 RBC 3.79 M/mm3 (4.6-6.2) L 09/03/20 04:05 Hgb 11.6 g/dL (13.0-16.5) L 09/03/20 04:05 Hct 36.7 % (40-54) L 09/03/20 04:05 MCV 96.8 fL (80-94) H 09/03/20 04:05 MCHC 31.6 g/dL (32-36) L 09/03/20 04:05 RDW Std Deviation 53.5 fl (35.1-43.9) H 09/03/20 04:05 RDW Coeff of Renzo 15.1 % (11.6-14.6) H 09/03/20 04:05 Immature Gran % (Auto) 1.300 % (0.0-0.9) H 09/03/20 04:05 Neut % (Auto) 93.0 % (47-70) H 09/03/20 04:05 Lymph % (Auto) 2.3 % (19-41) L 09/03/20 04:05 Absolute Neuts (auto) 23.5 X10^3/uL (2.0-7.7) H 09/03/20 04:05 Absolute Lymphs (auto) 0.57 X10^3/uL (0.83-4.51) L 09/03/20 04:05 PT 18.1 SECONDS (11.7-14.9) H 09/02/20 05:20 D-Dimer Quant (PE/DVT) 0.90 FEU/ug/m (0.27-0.49) H* 08/23/20 13:07 Sodium 135 mmol/L (136-145) L 08/23/20 13:07 Potassium 3.3 mmol/L (3.5-5.1) L 08/23/20 13:07 Chloride 111 mmol/L (98-107) H 08/28/20 05:15 BUN 99 mg/dL (7-18) H 09/03/20 04:05 Creatinine 4.48 mg/dL (0.70-1.30) H 09/03/20 04:05 Est GFR (MDRD) Af Amer 17 mL/min (>60) L 09/03/20 04:05 Est GFR (MDRD) Non-Af 14 mL/min (>60) L 09/03/20 04:05 BUN/Creatinine Ratio 22.1 RATIO (-20) H 09/03/20 04:05 Glucose 148 mg/dL (74-106) H 09/03/20 04:05 Calcium 7.7 mg/dL (8.5-10.1) L 09/03/20 04:05 Phosphorus 8.7 mg/dL (2.5-4.9) H 09/02/20 05:40 Magnesium 3.9 mg/dL (1.6-2.6) H 09/02/20 05:40 Total Bilirubin 1.20 mg/dL (0.20-1.00) H 08/23/20 13:07 AST 100 U/L (15-37) H 08/28/20 05:15 ALT 169 U/L (16-61) H 08/28/20 05:15 Alkaline Phosphatase 213 U/L (45-117) H 08/28/20 05:15 Albumin 2.2 g/dL (3.2-5.0) L 08/28/20 05:15 Globulin 4.7 g/dL (2.2-4.2) H 08/28/20 05:15 Albumin/Globulin Ratio 0.5 RATIO (0.9-2.4) L 08/28/20 05:15 Triglycerides 364 mg/dL (-199) H 09/01/20 12:15 Procalcitonin 0.13 ng/mL (0.00-0.09) H 08/23/20 18:43 - Assessment Food / Nutrition-Related History:: Discussed in ICU rounds. Enteral nutrition support ordered yesterday- however per nursing staff, tube feeds were not administered. Pt is still appropriate for trophic feeds- will use pump set per Dr. Jordan. Pharmacy notified. - Food / Nutrient Delivery Interventions Summary of nutrition intervention:: Per Dr. Jordan- OK for trophic feeds via pump d/t inadequate oral intake prior to intubation. Will order adjust current enteral nutrition support orders. Nutrition support ordered as / adjusted to:: Trophic enteral nutrition support via OGT- Vital AF 1.2 at 20mL/hour to provide 516 calories, 36 g protein, and 389mL water from formula per day. 30mL H2O flush every 4 hours to provide 569mL total fluid/day. - MNT Monitoring Further MNT monitoring and evaluation required?: Yes MNT Follow-up in:: 1-2 days
--- NOTE | 2020-09-03 12:06 | PCM.PN.HOSP ---
Patient Problems: Active and Suspected Problems (Last Reviewed 08/23/20 @ 14:[address] David Crow, DO) COVID-19 (Acute) Hypoxia (Acute) Subjective: Intubated and sedated, no significant issues overnight Vitals/I&O's: Vital Signs Temp Pulse Resp BP Pulse Ox 97.9 F 88 17 152/80 H 95 09/03/20 08:00 09/03/20 11:00 09/03/20 11:00 09/03/20 11:15 09/03/20 11:00 Oxygen Flow Rate (L/min) 70 Oxygen Delivery Method Mechanical Ventilator Weight: 178 lb 5.663 oz Body Mass Index (BMI) 26.3 Intake and Output for Last 24 Hours 09/01/20 09/02/20 09/03/20 23:59 23:59 23:59 Intake Total 921.23 / 934.60 1867.28 / 1943.18 913.35 / 913.35 Output Total 439 / 464 426 / 451 495 / 495 Balance 482.23 / 470.60 1441.28 / 1492.18 418.35 / 418.35 General: - - Intubated and sedated HEENT: Atraumatic, PERRLA, EOMI, Normocephalic Oral: Moist Mucosa Neck: Supple, No JVD Lungs: Normal air movement, No rhonchi, No wheeze, No rales, Diminished, - - Bilateral chest crepitus Cardiovascular: Regular Rhythm, Normal S1, Normal S2, No murmurs, Tachycardic Abdomen: Soft, Non Tender, Non-Distended, No Hepato-splenomegaly Extremities: Capillary Refill Less than 3 Seconds, Edema Skin: No rashes, No breakdown Neurological: - - Intubated and sedated Psych/Mental Status: - - Intubated and sedated Laboratory Results 09/03/20 00:15: Urine Color Yellow, Urine Clarity Clear, Urine pH 5.0, Ur Specific [place] 1.020, Urine Protein 30 H, Urine Glucose (UA) Normal, Urine Ketones Negative, Urine Occult Blood 150 H, Urine Nitrite Negative, Urine Bilirubin Negative, Urine Urobilinogen Normal, Ur Leukocyte Esterase 25 H, Urine RBC 5-10 SEEN, Urine WBC 5-10 SEEN, Ur Squamous Epith Cells 0-5 SEEN, Urine Bacteria RARE, Urine Mucus 0 SEEN 11/11/20 00:15: Ur Random Sodium 59, Urine Creatinine 111.00 09/03/20 04:05: WBC 25.3 H, RBC 3.79 L, Hgb 11.6 L, Hct 36.7 L, MCV 96.8 H, MCH 30.6, MCHC 31.6 L, RDW Std Deviation 53.5 H, RDW Coeff of Renzo 15.1 H, Plt Count 290, MPV 12.0, Immature Gran % (Auto) 1.300 H, Neut % (Auto) 93.0 H, Lymph % (Auto) 2.3 L, [place] % (Auto) 3.2, Eos % (Auto) 0.0, Baso % (Auto) 0.2, Absolute Neuts (auto) 23.5 H, Absolute Lymphs (auto) 0.57 L, Nucleated RBC % 0, Differential Comment SCANNED 09/03/20 04:05: Sodium 136, Potassium 4.4, Chloride 101, Carbon Dioxide 22.0, Anion Gap 13, BUN 99 H, Creatinine 4.48 H, Estim Creat Clear Calc 16.66, Est GFR (MDRD) Af Amer 17 L, Est GFR (MDRD) Non-Af 14 L, BUN/Creatinine Ratio 22.1 H, Glucose 148 H, Calcium 7.7 L 09/03/20 05:11: Specimen Type ART, Sample Site R Radial, pH 7.37, Bicarbonate Actual 21.0 L, Total CO2 22, Base Excess -4 L, O2 Saturation 90 L, O2 % 85, ABG pCO2 36.0, ABG pO2 60 L, Vidal Test Positive, Respiration Rate 12, O2 Delivery Device Adult Vent, Vent Mode BiLevel Current Medications Acetaminophen (Acetaminophen 650 Mg/20 Ml Udc) 650 mg GT Q6H PRN PRN PRN Reason: Pain Score 1-10/Temp > 100.7 F Albuterol Sulfate (Albuterol Sulfate 18 Gm Inhaler (200 Puffs)) 2 puff IH Q4H PRN PRN PRN Reason: SOB or wheezing Last Admin: 08/29/20 11:47 Dose: 2 puff Documented by: Aspirin (Aspirin 81 Mg Tab.Chew) 81 mg GT DAILY [facility]RE[facility] Last Admin: 09/02/20 12:20 Dose: 81 mg Documented by: Atorvastatin Calcium (Atorvastatin Calcium 40 Mg Tablet) 40 mg GT QHS [facility] Last Admin: 09/02/20 20:21 Dose: 40 mg Documented by: Dexamethasone (Dexamethasone 4 Mg Tablet) 6 mg GT QAM [facility]1983 Stop: 09/03/20 23:30 Last Admin: 09/02/20 12:21 Dose: 6 mg Documented by: Enoxaparin Sodium (Enoxaparin 30 Mg/0.3 Ml Syringe) 30 mg SC DAILY [facility] Last Admin: 09/02/20 12:18 Dose: 30 mg Documented by: Fluticasone Propionate (Fluticasone 0.05% 1 [place] Nasal.Sry) 1 spray NASAL DAILY PRN PRN PRN Reason: congestion Guaifenesin (Guaifenesin 10 Ml Udc (200mg/10ml)) 20 ml GT Q4H PRN PRN PRN Reason: COUGH Heparin Sodium (Porcine) (Heparin 10,000 Units/10 Ml Vial) 2,600 units IV DAILY PRN PRN Reason: DIALYSIS Sodium Chloride () 250 mls @ 15 mls/hr IV .[id number] PRN PRN Reason: Saline Flush Sodium Chloride () 250 mls @ 15 mls/hr IV .[id number] PRN PRN Reason: Additional IVPB Infusion Last Infusion: 08/29/20 20:36 Dose: 0 mls/hr Documented by: Propofol (Diprivan) 1,000 mg in 100 mls @ 19.224 mls/hr CONT INF .Q5H13M [facility], [facility]; Protocol Last Admin: 09/03/20 11:23 Dose: 20 mcg/kg/min, 9.6 mls/hr Documented by: Fentanyl Citrate 1,000 mcg/ (Sodium Chloride) 100 mls @ 20 mls/hr CONT INF .Q5H [facility], [facility]; Protocol Last Titration: 09/03/20 11:00 Dose: 125 mcg/hr, 12.5 mls/hr Documented by: Norepinephrine Bitartrate 8 mg (/ Sodium Chloride) 250 mls @ 9.375 mls/hr CONT INF .[id number] [facility], [facility]; Protocol Last Titration: 09/03/20 11:15 Dose: 20 mcg/min, 37.5 mls/hr Documented by: Pantoprazole Sodium 40 mg/ (Sodium Chloride) 110 mls @ 330 mls/hr IV Q24 MIRELLA Last Infusion: 09/02/20 17:41 Dose: Infused Documented by: Enteral Nutritional Formula (Vital Af 1.2 [place] Liquid) 1,000 mls @ 20 mls/hr GT .Q48H [facility] Last Admin: 09/02/20 20:47 Dose: Not Given Documented by: Lorazepam (Lorazepam 2 Mg/Ml Syringe) 0.5 mg IV Q6H PRN PRN PRN Reason: ANXIETY/AGITATION Last Admin: 08/31/20 03:11 Dose: 0.5 mg Documented by: Melatonin (Melatonin 3 Mg Tablet) 3 mg GT QHS PRN PRN PRN Reason: INSOMNIA Miscellaneous Information (Inhaler, Assist Devices 1 Each Spacer) 1 each INHALATION PRN PRN PRN Reason: WITH ALBUTEROL MDI Montelukast Sodium (Montelukast 10 Mg Tablet) 10 mg GT QHS [facility] Last Admin: 09/02/20 20:21 Dose: 10 mg Documented by: Ondansetron HCl (Ondansetron 4 Mg/2 Ml Vial) 4 mg IV Q8H PRN PRN PRN Reason: NAUSEA/VOMITING Last Admin: 08/30/20 21:56 Dose: 4 mg Documented by: Quetiapine Fumarate (Quetiapine 100 Mg Tablet) 150 mg GT BID [facility] Senna/Docusate Sodium (Senna/Docusate Sodium 1 Tablet) 1 tablet GT BID PRN PRN Reason: Constipation Sodium Chloride (0.9% Saline Lock 10 Ml Syringe) 10 - 40 ml IV UD PRN PRN Reason: SALINE FLUSH Last Admin: 09/02/20 05:46 Dose: 30 ml Documented by: Throat Lozenges (Benzocaine/Menthol 1 Lozenge) 1 lozenge MUCOUS MEM Q2H PRN PRN PRN Reason: SORE THROAT STROKE Vital Signs/Narrative: Vital Signs Pulse Resp BP Pulse Ox 09/03/20 11:15 152/80 H 09/03/20 11:00 88 17 134/71 H 95 09/03/20 10:18 86 24 H 93 09/03/20 10:00 89 18 145/79 H 92 09/03/20 09:21 90 09/03/20 09:00 85 21 H 149/74 H 90 Medical Necessity - Tobacco Use Smoking Status: Former smoker Tobacco Use: Cigarettes, Chew Assessment/Plan All Active Problems (Last Reviewed 08/23/20 @ 14:[address] David Crow, DO) COVID-19 (Acute) Hypoxia (Acute) 1. Acute hypoxic respiratory failure secondary to Covid pneumonia with possible septic shock possibly secondary to sedation medications/acute renal failure/pneumomediastinum -He has completed convalescent plasma however he was unable to complete remdesivir secondary to worsening liver function -Continue with Decadron -Has had to have increasing PEEP up to 28 as well as an FiO2 of 80% -Continue with sedation -Appreciate nephrology, ID, ICU assistance -Continue with dialysis -Continue with pressor support -Pneumomediastinum likely secondary to BiPAP therapy and the fact that he was coughing against it. We will continue to monitor 2. HTN/HLD -We will hold blood pressure medications as he is on pressor support -Continue with Lipitor and aspirin 3. GERD -Stable -Continue with PPI DVT: Lovenox Inpatient E&M: 31490 Subs Hosp L2
--- NOTE | 2020-09-03 15:53 | PCM.PN.ID ---
Patient Problems: Active and Suspected Problems (Last Reviewed 08/23/20 @ 14:[address] David Crow, DO) COVID-19 (Acute) Hypoxia (Acute) Subjective: On vent, no fever - Physical Exam Vitals/I&O's: Vital Signs Temp Pulse Resp BP Pulse Ox 98.0 F 102 H 16 103/62 88 09/03/20 14:00 09/03/20 14:00 09/03/20 14:00 09/03/20 14:00 09/03/20 14:00 Oxygen Flow Rate (L/min) 70 Oxygen Delivery Method Mechanical Ventilator Weight: 80.9 kg Body Mass Index (BMI) 26.3 Intake and Output for Last 24 Hours 09/01/20 09/02/20 09/03/20 23:59 23:59 23:59 Intake Total 921.23 / 934.60 1867.28 / 1943.18 1633.12 / 1633.12 Output Total 439 / 464 426 / 451 780 / 780 Balance 482.23 / 470.60 1441.28 / 1492.18 853.12 / 853.12 General: No apparent distress, Non-Cooperative Lungs: Diminished Cardiovascular: Regular rate, Regular Rhythm Abdomen: Soft, Non Tender, Non-Distended Skin: No rashes Laboratory Results 09/03/20 00:15: Urine Color Yellow, Urine Clarity Clear, Urine pH 5.0, Ur Specific [place] 1.020, Urine Protein 30 H, Urine Glucose (UA) Normal, Urine Ketones Negative, Urine Occult Blood 150 H, Urine Nitrite Negative, Urine Bilirubin Negative, Urine Urobilinogen Normal, Ur Leukocyte Esterase 25 H, Urine RBC 5-10 SEEN, Urine WBC 5-10 SEEN, Ur Squamous Epith Cells 0-5 SEEN, Urine Bacteria RARE, Urine Mucus 0 SEEN 09/03/20 00:15: Ur Random Sodium 59, Urine Creatinine 111.00 09/03/20 04:05: WBC 25.3 H, RBC 3.79 L, Hgb 11.6 L, Hct 36.7 L, MCV 96.8 H, MCH 30.6, MCHC 31.6 L, RDW Std Deviation 53.5 H, RDW Coeff of Renzo 15.1 H, Plt Count 290, MPV 12.0, Immature Gran % (Auto) 1.300 H, Neut % (Auto) 93.0 H, Lymph % (Auto) 2.3 L, [place] % (Auto) 3.2, Eos % (Auto) 0.0, Baso % (Auto) 0.2, Absolute Neuts (auto) 23.5 H, Absolute Lymphs (auto) 0.57 L, Nucleated RBC % 0, Differential Comment SCANNED 09/03/20 04:05: Sodium 136, Potassium 4.4, Chloride 101, Carbon Dioxide 22.0, Anion Gap 13, BUN 99 H, Creatinine 4.48 H, Estim Creat Clear Calc 16.66, Est GFR (MDRD) Af Amer 17 L, Est GFR (MDRD) Non-Af 14 L, BUN/Creatinine Ratio 22.1 H, Glucose 148 H, Calcium 7.7 L 09/03/20 05:11: Specimen Type ART, Sample Site R Radial, pH 7.37, Bicarbonate Actual 21.0 L, Total CO2 22, Base Excess -4 L, O2 Saturation 90 L, O2 % 85, ABG pCO2 36.0, ABG pO2 60 L, Vidal Test Positive, Respiration Rate 12, O2 Delivery Device Adult Vent, Vent Mode BiLevel Current Medications Acetaminophen (Acetaminophen 650 Mg/20 Ml Udc) 650 mg GT Q6H PRN PRN PRN Reason: Pain Score 1-10/Temp > 100.7 F Albuterol Sulfate (Albuterol Sulfate 18 Gm Inhaler (200 Puffs)) 2 puff IH Q4H PRN PRN PRN Reason: SOB or wheezing Last Admin: 08/29/20 11:47 Dose: 2 puff Documented by: Aspirin (Aspirin 81 Mg Tab.Chew) 81 mg GT DAILY [facility] Last Admin: 09/02/20 12:20 Dose: 81 mg Documented by: Atorvastatin Calcium (Atorvastatin Calcium 40 Mg Tablet) 40 mg GT QHS [facility] Last Admin: 09/02/20 20:21 Dose: 40 mg Documented by: Dexamethasone (Dexamethasone 4 Mg Tablet) 6 mg GT QAM [facility] Stop: 09/03/20 23:30 Last Admin: 09/02/20 12:21 Dose: 6 mg Documented by: Enoxaparin Sodium (Enoxaparin 30 Mg/0.3 Ml Syringe) 30 mg SC DAILY [facility] Last Admin: 09/02/20 12:18 Dose: 30 mg Documented by: Fluticasone Propionate (Fluticasone 0.05% 1 [place] Nasal.Sry) 1 spray NASAL DAILY PRN PRN PRN Reason: congestion Guaifenesin (Guaifenesin 10 Ml Udc (200mg/10ml)) 20 ml GT Q4H PRN PRN PRN Reason: COUGH Heparin Sodium (Porcine) (Heparin 10,000 Units/10 Ml Vial) 2,600 units IV DAILY PRN PRN Reason: DIALYSIS Sodium Chloride () 250 mls @ 15 mls/hr IV .[id number] PRN PRN Reason: Saline Flush Sodium Chloride () 250 mls @ 15 mls/hr IV .[id number] PRN PRN Reason: Additional IVPB Infusion Last Infusion: 08/29/20 20:36 Dose: 0 mls/hr Documented by: Propofol (Diprivan) 1,000 mg in 100 mls @ 19.224 mls/hr CONT INF .Q5H13M [facility]; Protocol Last Admin: 09/03/20 13:30 Dose: Not Given Documented by: Fentanyl Citrate 1,000 mcg/ (Sodium Chloride) 100 mls @ 20 mls/hr CONT INF .Q5H [facility]; Protocol Last Titration: 09/03/20 14:00 Dose: 200 mcg/hr, 20 mls/hr Documented by: Norepinephrine Bitartrate 8 mg (/ Sodium Chloride) 250 mls @ 9.375 mls/hr CONT INF .[id number] [facility]RELLA; Protocol Last Admin: 09/03/20 14:20 Dose: 25 mcg/min, 46.9 mls/hr Documented by: Pantoprazole Sodium 40 mg/ (Sodium Chloride) 110 mls @ 330 mls/hr IV Q24 MIRELLA Last Infusion: 09/02/20 17:41 Dose: Infused Documented by: Enteral Nutritional Formula (Vital Af 1.2 [place] Liquid) 1,000 mls @ 20 mls/hr GT .Q48H [facility] Last Admin: 09/02/20 20:47 Dose: Not Given Documented by: Lorazepam (Lorazepam 2 Mg/Ml Syringe) 0.5 mg IV Q6H PRN PRN PRN Reason: ANXIETY/AGITATION Last Admin: 08/31/20 03:11 Dose: 0.5 mg Documented by: Melatonin (Melatonin 3 Mg Tablet) 3 mg GT QHS PRN PRN PRN Reason: INSOMNIA Miscellaneous Information (Inhaler, Assist Devices 1 Each Spacer) 1 each INHALATION PRN PRN PRN Reason: WITH ALBUTEROL MDI Montelukast Sodium (Montelukast 10 Mg Tablet) 10 mg GT QHS [facility] Last Admin: 09/02/20 20:21 Dose: 10 mg Documented by: Ondansetron HCl (Ondansetron 4 Mg/2 Ml Vial) 4 mg IV Q8H PRN PRN PRN Reason: NAUSEA/VOMITING Last Admin: 08/30/20 21:56 Dose: 4 mg Documented by: Quetiapine Fumarate (Quetiapine 100 Mg Tablet) 150 mg GT BID [facility] Senna/Docusate Sodium (Senna/Docusate Sodium 1 Tablet) 2 tablet GT BID [facility]RELL[facility] Sodium Chloride (0.9% Saline Lock 10 Ml Syringe) 10 - 40 ml IV UD PRN PRN Reason: SALINE FLUSH Last Admin: 09/02/20 05:46 Dose: 30 ml Documented by: Throat Lozenges (Benzocaine/Menthol 1 Lozenge) 1 lozenge MUCOUS MEM Q2H PRN PRN PRN Reason: SORE THROAT Medical Necessity - Tobacco Use Smoking Status: Former smoker Tobacco Use: Cigarettes, Chew Route of nutrition/ use of supplements: [] Nutritional Intake: [] IV Site: [] Alaniz Catheter: [] - Assessment/Plan Antibiotics: [] Assessment/Plan: [] Active and Suspected Problems (Last Reviewed 08/23/20 @ 14:[address] David Crow, DO) COVID-19 (Acute) Hypoxia (Acute) On dex. Got plasma 08/25. Started remdesivir 08/25, but had rise in ALT to 306, so stopped the following day. CT neg for PE. On lovenox 30mg bid. Intubated 09/01. Wbc elevated, no fever Will follow
[2020-09-03] MEDS: Polyethylene Glycol 3350 17 GM PACKET PO (15:54)
[2020-09-03] MEDS: Enoxaparin 30 MG/0.3 ML Syringe SC (15:54)
[2020-09-03] MEDS: Aspirin 81 MG TAB.CHEW GT (15:56)
[2020-09-03] MEDS: QUEtiapine 100 MG Tablet 150 MG GT (15:56)
[2020-09-03] MEDS: Vital AF 1.2 Cal Liquid 1,000 ML 20 ML GT (15:56)
[2020-09-03] MEDS: Senna/Docusate Sodium 1 Tablet 2 TABLET GT ×2 (15:56→22:22)
--- NOTE | 2020-09-03 16:25 | RAD_ITS ---
STUDY: X-RAY CHEST REASON FOR EXAM: Male, 64 years old. CONCERN FOR PNEUMOTHORAX. HYPOXIA. COVID 19. RESPIRATORY FAILURE. TECHNIQUE: Single AP portable view of the chest. COMPARISON: 09/02/2020 FINDINGS: Endotracheal tube, nasogastric tube, right internal jugular deep venous line all of which are unchanged. Extensive subcutaneous emphysema throughout the chest. No change in bibasilar atelectasis. No change in tiny right-sided pneumothorax. Normal size heart. Normal mediastinum and pennie. Normal visualized pulmonary arteries. Normal visualized aortic arch and descending thoracic aorta. Normal visualized thoracic spine. Normal visualized ribs, clavicles, and shoulders. There is no demonstrated abnormality of the visualized soft tissue structures of the upper abdomen. RAD/Chest 1 View (Portable) IMPRESSION: No change from 09/02/2020 with extensive subcutaneous emphysema and a tiny right-sided pneumothorax. Electronically Signed: Marcelo Michaels MD at 16:46 EST Tel , Service support ,
[2020-09-03] MEDS: Propofol 10MG/Ml 1,000 MG/100 ML Bottle 21.6 MG CONT INF ×2 (16:30→18:24)
[2020-09-03] MEDS: dexAMETHasone 4 MG Tablet 6 MG GT (16:31)
--- NOTE | 2020-09-03 17:04 | DIALYSIS ---
Pt only ran for 2 hours and 40 minutes d/t poor flow from left IJ catheter. Dr. Mann is aware. Tolerated tx poorly. Albumin given as ordered. Catheter closed with heparin per fill volume. Caps placed. Dressing is dry and intact. See tx sheet for more details. Report was given to COREY Marino.
--- NOTE | 2020-09-03 17:38 | NURSING ---
Pt continued to be restless, alarming ventilator, desaturating. Dr Jordan in room. New order for paralytic infusion received.
[2020-09-03] MEDS: Phenobarbital Sodium 65 MG/ML Vial 100 MG IV (18:14)
--- NOTE | 2020-09-03 21:15 | CPS ---
RT unable to achieve abg. Rt paged dr. durbin. Dr. durbin informed rt to not perform abg. Rt performed plataau pressure with reading of 32. Patients peep not increased per dr. durbin stating not to increase peep if plataue above 30
[2020-09-03] MEDS: Montelukast 10 MG Tablet GT (22:22)
[2020-09-03] MEDS: Atorvastatin Calcium 40 MG Tablet GT (22:22)
[2020-09-04] VITALS (13 sets, daily range): BP systolic 59–90; BP diastolic 34–45; PULSE 68–105; RESP 12–16; TEMP 36.4; O2SAT 72–80
[2020-09-04 04:22] LABS: Magnesium 3.5 mg/dL (1.6-2.6); Phosphorus 14.3 mg/dL (2.5-4.9)
[2020-09-04 04:48] LABS: Absolute Lymphocyte Count 0.52 X10^3/uL (0.83-4.51); Absolute Neutrophil Count 19.8 X10^3/uL (2.0-7.7); Basophil# 0.05 X10^3/uL; Basophil% 0.2 % (0-1); Eosinophil# 0.02 X10^3/uL; Eosinophils% 0.1 % (0-5); Hematocrit 34.5 % (40-54); Hemoglobin 10.1 g/dL (13.0-16.5); Lymphocyte # 0.52 X10^3/ul (4.0); Lymphocyte % 2.5 % (19-41); Mean Corp Hgb Conc 29.3 g/dL (32-36); Mean Corpuscular Hgb 31.7 pg (27.0-32.0); Mean Corpuscular Volume 108.2 fL (80-94); Mean Platelet Vol. 12.6 fl (6.2-12.0); Monocyte# 0.26 X10^3/uL; Monocyte% 1.2 % (0-10); NRBC Flagged by Analyzer 0.2 % (0-5); Neutrophil # 19.79 X10^3/uL (2.7-7.7); Neutrophil % 95.1 % (47-70); POSITIVE DIFFERENTIAL YES; POSITIVE MORPHOLOGY YES; Platelet Count 188 K/mm3 (150-450); RBC Distribution Width CV 15.4 % (11.6-14.6); RBC Distribution Width SD 61.8 fl (35.1-43.9); Red Blood Count 3.19 M/mm3 (4.6-6.2); White Blood Count 20.8 K/mm3 (4.4-11.0)
[2020-09-04 05:02] LABS: Anion Gap 11 (5-15); BUN 71 mg/dL (7-18); Calcium,Total 7.1 mg/dL (8.5-10.1); Chloride 101 mmol/L (98-107); Creatinine, Serum 5.45 mg/dL (0.70-1.30); EST Glomerular Filtration Rate 11 mL/min (>60); Est Glom Filt Rate - Afr Amer 14 mL/min (>60); Estimated Creatinine Clearance 13.69 ml/min; Glucose 101 mg/dL (74-106); Potassium 6.3 mmol/L (3.5-5.1); Sodium Level 135 mmol/L (136-145)
[2020-09-04 05:24] LABS: Differential Indicated SCAN CRITERIA MET
[2020-09-04 05:29] LABS: Differential Comment SCANNED
--- NOTE | 2020-09-04 06:38 | PN_ITS ---
Subjective: Patient with significant difficulties overnight. Family was called in twice to evaluate the patient, but states they want to give his brothers the opportunity to see him breathing. Patient is unresponsive at this time. Objective: Patient continues to saturate in the mid 70s. Plateau pressures were noted at 26, so PEEP was increased to 19 leading to a plateau of 28. Saturations remain 77 to 79%. General: - - Unresponsive. On 75 mcg of fentanyl with no sedation. HEENT: Atraumatic, Normocephalic, - - Slow pupillary response Oral: No Gingival or Mucosal Lesions/ Ulcerations, Dry Mucosa Neck: Supple, No JVD, No Nodes, Trachea Midline Lungs: No rhonchi, No wheeze, No rales, Diminished, - - Symmetric expansion. Crepitus through the pectorals. Cardiovascular: Regular rate, Regular Rhythm, Normal S1, Normal S2, No murmurs, No rub noted, No Gallop Abdomen: Bowel Sounds Present, Soft, Non Tender, Non-Distended Extremities: No clubbing, No cyanosis, Edema Skin: - - No significant change from yesterday. Some weeping through the skin. Musculoskeletal: No Tenderness to Palpation of Joints or Extremities Lymphatic: No Cervical, Supraclavicular, or Inguinal Adenopathy Neurological: - - Minimally responsive. Cough and gag noted. Vital Signs Temp Pulse Resp BP Pulse Ox 36.4 C L 72 15 63/38 L 77 09/04/20 00:00 09/04/20 06:00 09/04/20 06:00 09/04/20 06:00 09/04/20 06:00 Oxygen Flow Rate (L/min) 70 Oxygen Delivery Method Mechanical Ventilator Weight: 84.9 kg Body Mass Index (BMI) 26.3 Intake and Output for Last 24 Hours 09/02/20 09/03/20 09/04/20 23:59 23:59 23:59 Intake Total 1867.28 / 1943.18 3733.93 / 3887.27 651.29 / 651.29 Output Total 426 / 451 840 / 840 Balance 1441.28 / 1492.18 2893.93 / 3047.27 641.29 / 641.29 Labs (Last 48 Hours) 09/02/20 09/02/20 09/02/20 05:20 05:40 11:28 WBC RBC Hgb Hct MCV MCH MCHC RDW Std Deviation RDW Coeff of Renzo Plt Count MPV Immature Gran % (Auto) Neut % (Auto) Lymph % (Auto) [place] % (Auto) Eos % (Auto) Baso % (Auto) Absolute Neuts (auto) Absolute Lymphs (auto) Nucleated RBC % Differential Comment SCANNED PT 18.1 H INR 1.6 Specimen Type Sample Site pH Bicarbonate Actual Total CO2 Base Excess O2 Saturation O2 % ABG pCO2 ABG pO2 Vidal Test Respiration Rate O2 Delivery Device Vent Mode Sodium Potassium Chloride Carbon Dioxide Anion Gap BUN Creatinine Estim Creat Clear Calc Est GFR (MDRD) Af Amer Est GFR (MDRD) Non-Af BUN/Creatinine Ratio Glucose Calcium Phosphorus Magnesium Urine Color Urine Clarity Urine pH Ur Specific [place] Urine Protein Urine Glucose (UA) Urine Ketones Urine Occult Blood Urine Nitrite Urine Bilirubin Urine Urobilinogen Ur Leukocyte Esterase Urine RBC Urine WBC Ur Squamous Epith Cells Urine Bacteria Urine Mucus Ur Random Sodium Urine Creatinine Hep Bs Antigen Hep Bs Antibody Hep B Core Total Ab POC Glucose 177 H 09/03/20 09/03/20 09/03/20 00:15 00:15 04:05 WBC 25.3 H RBC 3.79 L Hgb 11.6 L Hct 36.7 L MCV 96.8 H MCH 30.6 MCHC 31.6 L RDW Std Deviation 53.5 H RDW Coeff of Renzo 15.1 H Plt Count 290 MPV 12.0 Immature Gran % (Auto) 1.300 H Neut % (Auto) 93.0 H Lymph % (Auto) 2.3 L [place] % (Auto) 3.2 Eos % (Auto) 0.0 Baso % (Auto) 0.2 Absolute Neuts (auto) 23.5 H Absolute Lymphs (auto) 0.57 L Nucleated RBC % 0 Differential Comment SCANNED PT INR Specimen Type Sample Site pH Bicarbonate Actual Total CO2 Base Excess O2 Saturation O2 % ABG pCO2 ABG pO2 Vidal Test Respiration Rate O2 Delivery Device Vent Mode Sodium Potassium Chloride Carbon Dioxide Anion Gap BUN Creatinine Estim Creat Clear Calc Est GFR (MDRD) Af Amer Est GFR (MDRD) Non-Af BUN/Creatinine Ratio Glucose Calcium Phosphorus Magnesium Urine Color Yellow Urine Clarity Clear Urine pH 5.0 Ur Specific [place] 1.020 Urine Protein 30 H Urine Glucose (UA) Normal Urine Ketones Negative Urine Occult Blood 150 H Urine Nitrite Negative Urine Bilirubin Negative Urine Urobilinogen Normal Ur Leukocyte Esterase 25 H Urine RBC 5-10 SEEN Urine WBC 5-10 SEEN Ur Squamous Epith Cells 0-5 SEEN Urine Bacteria RARE Urine Mucus 0 SEEN Ur Random Sodium 59 Urine Creatinine 111.00 Hep Bs Antigen Hep Bs Antibody Hep B Core Total Ab POC Glucose 09/03/20 09/03/20 09/04/20 04:05 05:11 03:50 WBC RBC Hgb Hct MCV MCH MCHC RDW Std Deviation RDW Coeff of Renzo Plt Count MPV Immature Gran % (Auto) Neut % (Auto) Lymph % (Auto) [place] % (Auto) Eos % (Auto) Baso % (Auto) Absolute Neuts (auto) Absolute Lymphs (auto) Nucleated RBC % Differential Comment PT INR Specimen Type ART Sample Site R Radial pH 7.37 Bicarbonate Actual 21.0 L Total CO2 22 Base Excess -4 L O2 Saturation 90 L O2 % 85 ABG pCO2 36.0 ABG pO2 60 L Vidal Test Positive Respiration Rate 12 O2 Delivery Device Adult Vent Vent Mode BiLevel Sodium 136 Potassium 4.4 Chloride 101 Carbon Dioxide 22.0 Anion Gap 13 BUN 99 H Creatinine 4.48 H Estim Creat Clear Calc 16.66 Est GFR (MDRD) Af Amer 17 L Est GFR (MDRD) Non-Af 14 L BUN/Creatinine Ratio 22.1 H Glucose 148 H Calcium 7.7 L Phosphorus 14.3 H* Magnesium 3.5 H Urine Color Urine Clarity Urine pH Ur Specific [place] Urine Protein Urine Glucose (UA) Urine Ketones Urine Occult Blood Urine Nitrite Urine Bilirubin Urine Urobilinogen Ur Leukocyte Esterase Urine RBC Urine WBC Ur Squamous Epith Cells Urine Bacteria Urine Mucus Ur Random Sodium Urine Creatinine Hep Bs Antigen Hep Bs Antibody Hep B Core Total Ab POC Glucose 09/04/20 09/04/20 09/04/20 03:50 03:50 03:50 WBC 20.8 H RBC 3.19 L Hgb 10.1 L Hct 34.5 L MCV 108.2 H D MCH 31.7 MCHC 29.3 L D RDW Std Deviation 61.8 H RDW Coeff of Renzo 15.4 H Plt Count 188 MPV 12.6 H Immature Gran % (Auto) 0.900 Neut % (Auto) 95.1 H Lymph % (Auto) 2.5 L [place] % (Auto) 1.2 Eos % (Auto) 0.1 Baso % (Auto) 0.2 Absolute Neuts (auto) 19.8 H Absolute Lymphs (auto) 0.52 L Nucleated RBC % 0.2 Differential Comment SCANNED PT INR Specimen Type Sample Site pH Bicarbonate Actual Total CO2 Base Excess O2 Saturation O2 % ABG pCO2 ABG pO2 Vidal Test Respiration Rate O2 Delivery Device Vent Mode Sodium Potassium Chloride Carbon Dioxide Anion Gap BUN Creatinine Estim Creat Clear Calc Est GFR (MDRD) Af Amer Est GFR (MDRD) Non-Af BUN/Creatinine Ratio Glucose Calcium Phosphorus Magnesium Urine Color Urine Clarity Urine pH Ur Specific [place] Urine Protein Urine Glucose (UA) Urine Ketones Urine Occult Blood Urine Nitrite Urine Bilirubin Urine Urobilinogen Ur Leukocyte Esterase Urine RBC Urine WBC Ur Squamous Epith Cells Urine Bacteria Urine Mucus Ur Random Sodium Urine Creatinine Hep Bs Antigen Pending Hep Bs Antibody Pending Hep B Core Total Ab Pending POC Glucose 09/04/20 03:50 WBC RBC Hgb Hct MCV MCH MCHC RDW Std Deviation RDW Coeff of Renzo Plt Count MPV Immature Gran % (Auto) Neut % (Auto) Lymph % (Auto) [place] % (Auto) Eos % (Auto) Baso % (Auto) Absolute Neuts (auto) Absolute Lymphs (auto) Nucleated RBC % Differential Comment PT INR Specimen Type Sample Site pH Bicarbonate Actual Total CO2 Base Excess O2 Saturation O2 % ABG pCO2 ABG pO2 Vidal Test Respiration Rate O2 Delivery Device Vent Mode Sodium 135 L Potassium 6.3 H* Chloride 101 Carbon Dioxide 23.0 Anion Gap 11 BUN 71 H Creatinine 5.45 H Estim Creat Clear Calc 13.69 Est GFR (MDRD) Af Amer 14 L Est GFR (MDRD) Non-Af 11 L BUN/Creatinine Ratio 13.0 Glucose 101 Calcium 7.1 L Phosphorus Magnesium Urine Color Urine Clarity Urine pH Ur Specific [place] Urine Protein Urine Glucose (UA) Urine Ketones Urine Occult Blood Urine Nitrite Urine Bilirubin Urine Urobilinogen Ur Leukocyte Esterase Urine RBC Urine WBC Ur Squamous Epith Cells Urine Bacteria Urine Mucus Ur Random Sodium Urine Creatinine Hep Bs Antigen Hep Bs Antibody Hep B Core Total Ab POC Glucose Clinical Impression(s) from Imaging Studies Chest X-Ray 09/03/20 16:25 IMPRESSION: No change from 09/02/2020 with extensive subcutaneous emphysema and a tiny right-sided pneumothorax. Electronically Signed: Marcelo Michaels MD at 16:46 EST Tel , Service support , Medical Necessity - Tobacco Use Smoking Status: Former smoker Tobacco Use: Cigarettes, Chew Assessment/Plan All Active Problems (Last Reviewed 08/23/20 @ 14:[address] David Crow, DO) COVID-19 (Acute) Hypoxia (Acute) RECOMMENDATIONS: 1. Continue current vent settings 2. Continue bicarbonate drip after current bag 3. Continue Decadron 6 mg daily to complete 10 days of treatment. 4. Anticipate comfort measures following family meeting 5. Okay to discontinue Lovenox. IMPRESSIONS: 1. Acute hypoxemic respiratory failure secondary to COVID-19 pneumonia The patient initially presented to the hospital with Covid-like symptoms that began towards the end of July. The patient thus far has received convalescent plasma and was initially started on remdesivir. However, the remdesivir had to be discontinued due to worsening liver function. Patient was significant worsening in respiratory status over the last 24 to 48 hours. Patient transition to assist control yesterday with possible paralytic. These methods have been unsuccessful and patient has remained hypoxic. Anticipate comfort measures later today. 2. Hypertension/hyperlipidemia/GERD Complicates care, management, recovery and prognosis. Continue home medications as indicated. 3. Acute kidney injury Patient currently in acute renal failure. Patient has not tolerated dialysis yesterday very well and continues to have significant phosphatemia and electrolyte abnormalities. Patient was placed on a bicarbonate drip overnight, but this can be discontinued given possible comfort measures later today 4. Shock Unclear etiology. Patient is requiring significant sedation medications to maintain saturations. Patient also has acute renal failure with significant uremia, along with a pneumomediastinum. No significant cardiac ectopy has been noted. Continue to wean Levophed as tolerated. Likely unable to remove volume with hemodialysis. Doubt adrenal insufficiency given patient's current therapy with Decadron TIME: 32 minutes of critical care time, independent of procedures, was spent addressing the patient's acute hypoxemic respiratory failure, COVID-19 pneumonia, review of all data and collaboration with the care team. (5:15 AM to 6:15 AM) 9xxxx: [id number] Critical care first hour
[2020-09-04] MEDS: Enoxaparin 30 MG/0.3 ML Syringe SC (08:57)
--- NOTE | 2020-09-04 09:20 | PCM.PN.REN ---
Patient Problems: Active and Suspected Problems (Last Reviewed 08/23/20 @ 14:[address] David Crow, DO) COVID-19 (Acute) Hypoxia (Acute) Subjective: Following for GIOVANNI. Pt is on ventilator and is unresponsive. Cannot do ROS. - Physical Exam Vitals/I&O's: Vital Signs Temp Pulse Resp BP Pulse Ox 97.5 F L 74 16 63/38 L 77 09/04/20 00:00 09/04/20 06:35 09/04/20 06:35 09/04/20 06:00 09/04/20 06:35 Oxygen Flow Rate (L/min) 70 Oxygen Delivery Method Mechanical Ventilator Weight: 84.9 kg Body Mass Index (BMI) 26.3 Intake and Output for Last 24 Hours 09/02/20 09/03/20 09/04/20 23:59 23:59 23:59 Intake Total 1867.28 / 1943.18 3733.93 / 3887.27 651.29 / 651.29 Output Total 426 / 451 840 / 840 Balance 1441.28 / 1492.18 2893.93 / 3047.27 641.29 / 641.29 General: - - Obtunded HEENT: - - Intubated Comment: Exam limited because of COVID19 isolation. Laboratory Results 09/04/20 03:50: Phosphorus 14.3 H*, Magnesium 3.5 H 09/04/20 03:50: Hep B Core Total Ab Pending 09/04/20 03:50: Hep Bs Antigen Pending, Hep Bs Antibody Pending 09/04/20 03:50: WBC 20.8 H, RBC 3.19 L, Hgb 10.1 L, Hct 34.5 L, MCV 108.2 H D, MCH 31.7, MCHC 29.3 L D, RDW Std Deviation 61.8 H, RDW Coeff of Renzo 15.4 H, Plt Count 188, MPV 12.6 H, Immature Gran % (Auto) 0.900, Neut % (Auto) 95.1 H, Lymph % (Auto) 2.5 L, [place] % (Auto) 1.2, Eos % (Auto) 0.1, Baso % (Auto) 0.2, Absolute Neuts (auto) 19.8 H, Absolute Lymphs (auto) 0.52 L, Nucleated RBC % 0.2, Differential Comment SCANNED 09/04/20 03:50: Sodium 135 L, Potassium 6.3 H*, Chloride 101, Carbon Dioxide 23.0, Anion Gap 11, BUN 71 H, Creatinine 5.45 H, Estim Creat Clear Calc 13.69, Est GFR (MDRD) Af Amer 14 L, Est GFR (MDRD) Non-Af 11 L, BUN/Creatinine Ratio 13.0, Glucose 101, Calcium 7.1 L Current Medications Acetaminophen (Acetaminophen 650 Mg/20 Ml Udc) 650 mg GT Q6H PRN PRN PRN Reason: Pain Score 1-10/Temp > 100.7 F Albuterol Sulfate (Albuterol Sulfate 18 Gm Inhaler (200 Puffs)) 2 puff IH Q4H PRN PRN PRN Reason: SOB or wheezing Last Admin: 08/29/20 11:47 Dose: 2 puff Documented by: Aspirin (Aspirin 81 Mg Tab.Chew) 81 mg GT DAILY [facility] Last Admin: 09/03/20 15:56 Dose: 81 mg Documented by: Atorvastatin Calcium (Atorvastatin Calcium 40 Mg Tablet) 40 mg GT QHS [facility] Last Admin: 09/03/20 22:22 Dose: 40 mg Documented by: Enoxaparin Sodium (Enoxaparin 30 Mg/0.3 Ml Syringe) 30 mg SC DAILY [facility] Last Admin: 09/04/20 08:57 Dose: 30 mg Documented by: Fluticasone Propionate (Fluticasone 0.05% 1 [place] Nasal.Sry) 1 spray NASAL DAILY PRN PRN PRN Reason: congestion Guaifenesin (Guaifenesin 10 Ml Udc (200mg/10ml)) 20 ml GT Q4H PRN PRN PRN Reason: COUGH Heparin Sodium (Porcine) (Heparin 10,000 Units/10 Ml Vial) 2,600 units IV DAILY PRN PRN Reason: DIALYSIS Sodium Chloride () 250 mls @ 15 mls/hr IV .[id number] PRN PRN Reason: Saline Flush Sodium Chloride () 250 mls @ 15 mls/hr IV .[id number] PRN PRN Reason: Additional IVPB Infusion Last Infusion: 08/29/20 20:36 Dose: 0 mls/hr Documented by: Propofol (Diprivan) 1,000 mg in 100 mls @ 19.224 mls/hr CONT INF .Q5H13M MIRELLA; Protocol Last Admin: 09/04/20 05:26 Dose: Not Given Documented by: Fentanyl Citrate 1,000 mcg/ (Sodium Chloride) 100 mls @ 20 mls/hr CONT INF .Q5H MIRELLA; Protocol Last Admin: 09/04/20 06:29 Dose: 75 mcg/hr, 7.5 mls/hr Documented by: Norepinephrine Bitartrate 8 mg (/ Sodium Chloride) 250 mls @ 9.375 mls/hr CONT INF .[id number] MIRELLA; Protocol Last Titration: 09/04/20 06:00 Dose: 30 mcg/min, 56.3 mls/hr Documented by: Pantoprazole Sodium 40 mg/ (Sodium Chloride) 110 mls @ 330 mls/hr IV Q24 [facility] Last Infusion: 09/03/20 17:13 Dose: Infused Documented by: Enteral Nutritional Formula (Vital Af 1.2 [place] Liquid) 1,000 mls @ 20 mls/hr GT .Q48H MIRELLA Last Admin: 09/03/20 21:26 Dose: Not Given Documented by: Dexmedetomidine HCl 400 mcg/ (Sodium Chloride) 100 mls @ 10.113 mls/hr CONT INF .Q9H54M [facility]; Protocol Last Admin: 09/04/20 03:55 Dose: Not Given Documented by: Vasopressin 20 units/ Sodium (Chloride) 25 mls @ 3 mls/hr IV .Q8H20M [facility] Last Admin: 09/04/20 05:11 Dose: 0.04 units/min, 3 mls/hr Documented by: Sodium Bicarbonate 100 meq/ (Dextrose) 1,100 mls @ 75 mls/hr IV .[id number] MIRELLA Last Admin: 09/03/20 23:26 Dose: 75 mls/hr Documented by: Lorazepam (Lorazepam 2 Mg/Ml Syringe) 0.5 mg IV Q6H PRN PRN PRN Reason: ANXIETY/AGITATION Last Admin: 08/31/20 03:11 Dose: 0.5 mg Documented by: Melatonin (Melatonin 3 Mg Tablet) 3 mg GT QHS PRN PRN PRN Reason: INSOMNIA Miscellaneous Information (Inhaler, Assist Devices 1 Each Spacer) 1 each INHALATION PRN PRN PRN Reason: WITH ALBUTEROL MDI Montelukast Sodium (Montelukast 10 Mg Tablet) 10 mg GT QHS [facility] Last Admin: 09/03/20 22:22 Dose: 10 mg Documented by: Ondansetron HCl (Ondansetron 4 Mg/2 Ml Vial) 4 mg IV Q8H PRN PRN PRN Reason: NAUSEA/VOMITING Last Admin: 08/30/20 21:56 Dose: 4 mg Documented by: Phenobarbital (Phenobarbital Sodium 130 Mg/Ml Vial) 100 mg IV Q6H PRN PRN Reason: BIS SCORE > 60 Quetiapine Fumarate (Quetiapine 100 Mg Tablet) 150 mg GT BID [facility] Last Admin: 09/03/20 23:01 Dose: Not Given Documented by: Senna/Docusate Sodium (Senna/Docusate Sodium 1 Tablet) 2 tablet GT BID [facility] Last Admin: 09/03/20 22:22 Dose: 2 tablet Documented by: Sodium Chloride (0.9% Saline Lock 10 Ml Syringe) 10 - 40 ml IV UD PRN PRN Reason: SALINE FLUSH Last Admin: 09/02/20 05:46 Dose: 30 ml Documented by: Throat Lozenges (Benzocaine/Menthol 1 Lozenge) 1 lozenge MUCOUS MEM Q2H PRN PRN PRN Reason: SORE THROAT Medical Necessity - Tobacco Use Smoking Status: Former smoker Tobacco Use: Cigarettes, Chew Assessment/Plan All Active Problems (Last Reviewed 08/23/20 @ 14:[address] David Crow, DO) COVID-19 (Acute) Hypoxia (Acute) 1. GIOVANNI. Normal baseline renal function. GIOVANNI is due to ischemic ATN. UOP is poor. Unfortunately, the pt did not tolerate dialysis well yesterday (hypotension). I was going to reattempt HD again today. However, it looks like goal of care is being reevaluated. He may be made [employer] given overall deterioration despite maximal medical therapy. Will discuss with Dr. Jordan. Will hold off on dialysis until I discuss with Dr. Jordan. 2. Hyperkalemia. Due to #1. Don't think he will tolerate HD. 3. Septic shock due to COVID19 infection. Supportive care. On pressors. 4. Acute hypoxic respiratory failure. On ventilator. mangement as per travel assistant.
[2020-09-04 10:49] LABS: Hepatitis B Surface Antibody Reactive; Hepatitis B Surface Antigen Non-Reactive (Nonreactive)
[2020-09-04] MEDS: morphine 10 MG/ML Syringe IV (11:18)
[2020-09-04] MEDS: LORazepam 2 MG/ML Syringe IV (11:18)
--- NOTE | 2020-09-04 11:29 | NURSING ---
1120 OET removed per RT. family at bedside 1134 pt apneic, asystolic. family remains
--- NOTE | 2020-09-04 12:42 | PCM.DEATH ---
Preliminary Cause of Acute hypoxic respiratory failure secondary to COVID-19 pneumonia Date of Admission: 08/23/20 Date of : 09/04/20 - Principle Diagnosis Acute hypoxic respiratory failure COVID-19 pneumonia Pneumomediastinum Acute renal failure Shock of unknown etiology Problem List: Active and Suspected Problems (Last Reviewed 08/23/20 @ 14:[address] David Crow, DO) COVID-19 (Acute) Hypoxia (Acute) Hospital Course Mr. Wu is a 64-year-old male who presented to the hospital with signs and symptoms of COVID-19 pneumonia. He initially only required about 2 to 3 L nasal cannula however he is slowly worsened over the next 5 days initially on admission to the point where he needed BiPAP support. He was transferred to the ICU on 08/29/2020 and he was intubated on 09/01/2020. He was given Decadron, remdesivir, as well as convalescent plasma however he continued to decline, and the remdesivir had to be discontinued secondary to a rise in his ALT. We continued to increase his vent settings to maintain his oxygenation and he was even paralyzed on 09/03/2020 to assist with his oxygenation. During his hospitalization he did develop a pneumomediastinum that fortunately not progressed to a pneumothorax. In the afternoon of 09/03/2020, his oxygen sats dipped into the 70s and never recovered. He was on maximal vent settings without any improvement in his oxygenation, therefore on the morning of 09/04/2020 family was called and they came to the hospital and decided to proceed with terminal extubation. He was extubated 1115 and at 1133 on 09/04/2020. Inpatient E&M: [id number] [facility]
[2020-09-05 08:47] LABS: Hepatitis B Core Ab Total Negative (Negative)
== END 2020-09-04 11:33 | DRG 208 ==
LOC: ED 14:00 → PCU 14:47 → ICU 08-29 17:23
PROVIDERS: Internal Medicine; Internal Medicine Critical Care Medicine; Internal Medicine Infectious Disease; Emergency Provider Emergency Medicine; PCP Family Medicine; Visit Provider Family Medicine
DX: U07.1 COVID-19 (principal); J96.01 Acute respiratory failure with hypoxia; J12.89 Other viral pneumonia; N17.0 Acute kidney failure with tubular necrosis; R57.9 Shock, unspecified; I10 Essential (primary) hypertension; E78.5 Hyperlipidemia, unspecified; E87.6 Hypokalemia
CPT/HCPCS: 31500; 31720; 36415; 36600; 71045; 71275; 76770; 80048; 80053; 81001; 82550; 82570; 82803; 82962; 83605; 83735; 83880; 84100; 84145; 84300; 84478; 85025; 85027; 85379; 85610; 86704; 86706; 86900; 86901; 87040; 87340; 87449; 90937; 93005; 94002; 94003; 97802; 97803; 99251; 99285; 99406; J7030; J7040; J7050; Q9967; A4216; C1751; G0257; G0463; J1940; J2405; J3010; J3490